=== PATIENT | female | born 1940 | race Caucasian/White ===

== ENCOUNTER → 2018-09-02 | Outpatient (CLI) | payer MEDICARE ==
--- NOTE | 2018-09-02 15:57 | CT ---
EXAMINATION TYPE: CT iac wo con DATE OF EXAM: 09/02/2018 COMPARISON: None HISTORY: 78-year-old female left asymmetric, mixed hearing loss and dizziness CT DLP: 106 mGycm Automated exposure control for dose reduction was used. TECHNIQUE: Contiguous high-resolution axial scanning of the temporal bones performed without IV cont rast. Coronal reformatted images obtained. FINDINGS: There is no abnormality of visualized intracranial structures by thin section noncontrast technique. There are foci of ossification along the bilateral external auditory canal with some asymmetric soft tissue thickening on the left causing mild canal narrowing. Middle ear cavities are well pneumatized. Right mastoid air cells are pneumatized. Minimal scattered fluid within the left mastoid air cells. No erosive change of the fine osseous septa. There is no abnormality of middle ear ossicles. The round and oval windows are normal. There is no abnormality of bony labyrinths. No dehiscence of the superior semicircular canals. The vestibular aqueduct are well visualized. The facial nerve canal is normal bilaterally. The internal auditory canal and meati are symmetrical bilaterally. There is no evidence of fractures. Trace mucosal thickening ethmoid air cells. Rightward nasal septal deviation. Reformatted images confirm above findings. IMPRESSION: 1. Foci of ossification along the bilateral external auditory canals can be seen in the setting of re current otitis externa. Clinically correlate. There is some asymmetric soft tissue thickening causing mild narrowing of the left external auditory canal probably on a chronic postinflammatory basis. 2. Mild scattered fluid within the left mastoid air cells. Correlate for any mastoid pain to exclude mastoiditis.
== END | disposition home or self-care (01) ==
LOC: RADCTMAIN 14:20
PROVIDERS: ATTEND Otolaryngology
DX: H60.92 Unspecified otitis externa, left ear (principal); H93.92 Unspecified disorder of left ear
CPT/HCPCS: 70480

== ENCOUNTER → 2019-07-30 | Outpatient (CLI) | payer MEDICARE, OTHER | END | disposition home or self-care (01) | LOC: LABWHC1 11:27 | PROVIDERS: ATTEND Family Medicine | DX: R50.9 Fever, unspecified (principal) ==

== ENCOUNTER → 2019-12-10 | Outpatient (CLI) | payer MEDICARE, OTHER ==
--- NOTE | 2019-12-11 12:40 | MM ---
Reason for exam: screening (asymptomatic). Last mammogram was performed 1 year and 1 month ago. History: Patient is postmenopausal. Family history of breast cancer in sister at age 66. Benign excisional biopsy. Physical Findings: A clinical breast exam by your physician is recommended on an annual basis and results should be correlated with mammographic findings. MG 3D Screening Mammo W/Cad Bilateral CC and MLO view(s) were taken. Prior study comparison: November 21, 2018, mammogram, performed at [place]. November 14, 2018, mammogram, performed at [place]. November 12, 2017, mammogram, performed at [place]. The breast tissue is heterogeneously dense. This may lower the sensitivity of mammography. No significant changes when compared with prior studies. ASSESSMENT: Benign, BI-RAD 2 RECOMMENDATION: Routine screening mammogram of both breasts in 1 year.
== END | disposition home or self-care (01) ==
LOC: RADMAMWWP 08:28
PROVIDERS: ATTEND Family Medicine
DX: Z12.31 Encounter for screening mammogram for malignant neoplasm of breast (principal)
CPT/HCPCS: 77063; 77067

== ENCOUNTER → 2021-07-29 | Outpatient (CLI) | payer MEDICARE, OTHER ==
--- NOTE | 2021-07-29 15:02 | CT ---
EXAMINATION TYPE: CT brain wo con CT DLP: 1201 mGycm, Automated exposure control for dose reduction was used. DATE OF EXAM: 07/29/2021 2:41 PM COMPARISON: Internal auditory canal 09/02/2018 CLINICAL INDICATION:Female, 81 years old with history of R41.3 Amnesia, c/o memory loss TECHNIQUE: Brain: Multiple axial CT images of the brain were obtained without IV contrast. FINDINGS: Brain: Extra-axial spaces: No abnormal extra-axial fluid collections. Ventricular system: Within normal limits Cerebral parenchyma: No acute intraparenchymal hemorrhage or mass effect. The bruner-white junction is well differentiated. Cerebellum: Unremarkable. Mass effect: No evidence of midline shift. Intracranial vasculature: Atherosclerotic calcifications of the intracranial vessels. Soft tissues: Normal. Calvarium/osseous structures: No depressed skull fracture. Paranasal sinuses and mastoid air cells: Mild scattered paranasal sinus disease. Visualized orbits: Bilateral aphakia IMPRESSION: No acute intracranial process.
--- NOTE | 2021-07-29 15:21 | US ---
EXAMINATION TYPE: US carotid duplex BILAT DATE OF EXAM: 07/29/2021 COMPARISON: NONE CLINICAL HISTORY: R41.3 AMNESIA. Pt states memory loss EXAM MEASUREMENTS: RIGHT: Peak Systolic Velocity (PSV) cm/sec ----- Right CCA: 51.4 ----- Right ICA: 87.9 ----- Right ECA: 94.1 ICA/CCA ratio: 1.7 RIGHT: End Diastole cm/sec ----- Right CCA: 14.2 ----- Right ICA: 33.4 ----- Right ECA: 17.8 LEFT: Peak Systolic Velocity (PSV) cm/sec ----- Left CCA: 62.0 ----- Left ICA: 89.4 ----- Left ECA: 79.1 ICA/CCA ratio: 1.4 LEFT: End Diastole cm/sec ----- Left CCA: 17.4 ----- Left ICA: 29.3 ----- Left ECA: 14.4 VERTEBRALS (direction of flow): Right Vertebral: Antegrade Left Vertebral: Antegrade Rhythm: Normal A scale, color Doppler, spectral Doppler imaging performed the carotid arteries. Waveform analysis do es not show significant stenosis of the proximal internal carotid arteries. No significant stenosis s een IMPRESSION: No hemodynamic significant stenosis of the proximal internal carotid arteries by Doppler criteria, an indirect measurement of carotid stenosis Criteria for Assigning % of Stenosis / Diameter reduction (Estimation based on the indirect measurements of the internal carotid artery velocities (ICA PSV). 1. Normal (no stenosis)=ICA PSV < 125 cm/s: ratio < 2.0: ICA EDV<40 cm/s. 2. Less than 50% stenosis=ICA PSV < 125 cm/s: ratio < 2.0: ICA EDV<40 cm/s. 3. 50 to 69% stenosis=ICA PSV of 125 to 230 cm/s: ration 2.0 ? 4.0: ICA EDV 40-100 cm/s. 4. Greater than 70% stenosis to near occlusion= ICA PSV > 230 cm/s: ratio > 4.0: ICA EDV > 100 cm/s. 5. Near occlusion= ICA PSV velocities may be low or undetectable: variable ratio and ICA EDV. 6. Total occlusion=unable to detect flow.
--- NOTE | 2021-08-01 14:24 | MM ---
Reason for Exam: Screening (asymptomatic). Last mammogram was performed 1 year(s) and 7 month(s) ago. Patient History: Menarche at age 17. First Full-Term at age 22. Hysterectomy at age 52. Postmenopausal. , Benign Excisional Biopsy. Sister had breast cancer, age 66. Risk Values: Nano 5 year model risk: 3.5%. NCI Lifetime model risk: 5.8%. Prior Study Comparison: 11/14/2018 Screening Mammogram, [place]. 11/21/2018 Screening Mammogram, [place]. 12/10/2019 Bilateral Screening Mammogram, [facility]. Tissue Density: The breast tissue is heterogeneously dense. This may lower the sensitivity of mammography. Findings: Analyzed By CAD. Benign bilateral vascular calcifications. Microclip right breast from prior biopsy. No significant change from prior exams. Overall Assessment: Benign, BI-RAD 2 Management: Screening Mammogram of both breasts in 1 year. 1. Patient should continue monthly self breast exams. 2. A clinical breast exam by your physician is recommended on an annual basis. 3. This exam should not preclude additional follow-up of suspicious palpable abnormalities. Electronically signed and approved by: aJnie Lopez M.D. Radiologist
== END | disposition home or self-care (01) ==
LOC: RADCTMAIN 14:01
PROVIDERS: ATTEND Family Medicine
DX: Z12.31 Encounter for screening mammogram for malignant neoplasm of breast (principal); R41.3 Other amnesia
CPT/HCPCS: 70450; 77063; 77067; 93880

== ENCOUNTER → 2022-09-29 | Outpatient (CLI) | payer MEDICARE, OTHER ==
--- NOTE | 2022-09-30 17:54 | CA ---
Transthoracic Echo Report Name: Catrachita Dimas Age: 82 Gender: F : 1940 Exam Date: 09/29/2022 11:38 Exam Location: [facility] Ht (in): 63 Wt (lb): 110 Ordering Physician: Rosales Boothe DO Attending/Referring Phys: Senior Instructional Designer Faby Escoto [facility] Procedure CPT: Indications: R00.2 palpitations Cardiac Hx: Technical Quality: Fair Contrast 1: Total Dose (mL): Contrast 2: Total Dose (mL): MEASUREMENTS (Male / Female) Normal Values 2D ECHO LV Diastolic Diameter PLAX 4.0 cm 4.2 - 5.9 / 3.9 - 5.3 cm LV Systolic Diameter PLAX 2.9 cm IVS Diastolic Thickness 1.2 cm 0.6 - 1.0 / 0.6 - 0.9 cm LVPW Diastolic Thickness 1.1 cm 0.6 - 1.0 / 0.6 - 0.9 cm LV Relative Wall Thickness 0.6 LVOT Diameter 2.0 cm Ascending Aorta Diameter 3.4 cm M-MODE Aortic Root Diameter MM 2.5 cm LA Systolic Diameter MM 4.2 cm LA Ao Ratio MM 1.7 AV Cusp Separation MM 1.6 cm DOPPLER AV Peak Velocity 98.6 cm/s AV Peak Gradient 3.9 mmHg AV Mean Velocity 73.4 cm/s AV Mean Gradient 2.4 mmHg AV Velocity Time Integral 22.4 cm AI Peak Velocity 383.8 cm/s AI Peak Gradient 58.9 mmHg AI Pressure Half Time 837.6 ms LVOT Peak Velocity 79.9 cm/s LVOT Peak Gradient 2.6 mmHg LVOT Velocity Time Integral 17.6 cm LVOT Stroke Volume 56.3 cm??? LVOT Stroke Volume Index 37.5 ml/m??? LVOT Cardiac Index 2993.3 cm???/min???m??? AV Area Cont Eq vti 2.5 cm??? AV Area Cont Eq pk 2.6 cm??? Mitral E Point Velocity 50.8 cm/s Mitral A Point Velocity 51.9 cm/s Mitral E to A Ratio 1.0 MV Deceleration Time 163.0 ms LV E' Lateral Velocity 5.9 cm/s Mitral E to LV E' Lateral Ratio 8.6 LV E' Septal Velocity 6.0 cm/s Mitral E to LV E' Septal Ratio 8.5 TR Peak Velocity 278.0 cm/s TR Peak Gradient 30.9 mmHg Right Atrial Pressure 3.0 mmHg Pulmonary Artery Systolic Pressu 33.9 mmHg Right Ventricular Systolic Press 35.9 mmHg FINDINGS Left Ventricle Mildly increased septal wall thickness. Mildly increased posterior wall thickness. Left ventricular cavity size normal. Normal left ventricular systolic function with no obvious regional wall motion abnormalities. Left ventricular ejection fraction is estimated at 55-60%. Right Ventricle Mildly increased RV size. Normal RV function Right Atrium Severe right atrial dilatation. Left Atrium Severe left atrial dilatation. Mitral Valve Mitral valve thickened. Mild thickening/calcification of the posterior mitral valve leaflet. Moderate mitral regurgitation. Aortic Valve Trileaflet aortic valve. Moderate aortic regurgitation. Tricuspid Valve Structurally normal tricuspid valve. Moderate tricuspid regurgitation. Pulmonic Valve Structurally normal pulmonic valve. Trace to mild pulmonic regurgitation. Pericardium No pericardial effusion. Aorta Normal size aortic root and proximal ascending aorta. CONCLUSIONS Normal LV size and systolic function. LVEF 55-60% No obvious regional wall motion abnormality abnormality Moderate mitral regurgitation next and moderate aortic regurgitation Severe biatrial dilatation, mildly dilated RV. RVSP estimated at 35 mmHg No prior echo to compare Previewed by: Dr Kayode Bill (Electronically Signed) Final Date: 30 September 2022 17:53
== END | disposition home or self-care (01) ==
LOC: RADECHMAIN 11:22
PROVIDERS: ATTEND Family Medicine
DX: I08.3 Combined rheumatic disorders of mitral, aortic and tricuspid valves (principal); R00.2 Palpitations
CPT/HCPCS: 93306

== ENCOUNTER → 2022-10-05 | Outpatient (CLI) | payer MEDICARE, OTHER ==
--- NOTE | 2022-10-16 23:54 | EM ---
EVENT MONITOR The patient was monitored between October 05 and October 11, 2022. The rhythm strip revealed sinus mechanism. Single PACs were noted. No atrial fibrillation was noted. No pauses were noted. OPAL / LEN: [id number] /
== END | disposition home or self-care (01) ==
LOC: RADECHMAIN 12:22
PROVIDERS: ATTEND Family Medicine
DX: R00.2 Palpitations (principal)
CPT/HCPCS: 93270

== ENCOUNTER → 2022-11-29 | Outpatient (CLI) | payer MEDICARE, OTHER ==
--- NOTE | 2022-11-29 12:12 | MR ---
EXAMINATION TYPE: MR brain wo con DATE OF EXAM: 11/29/2022 8:45 AM CLINICAL INDICATION:Female, 82 years old with history of R413 OTHER AMNESIA; PHH, Memory loss. COMPARISON: None. TECHNIQUE: Multi planar, multi sequence imaging was performed through the brain including: T1, T2, In version recovery, Diffusion weighted imaging, and gradient echo imaging. No gadolinium was given. FINDINGS: Cerebral atrophy with proportional dilation to the ventricular system. Mesial temporal lobes are symm etric without significant atrophy. Scattered foci of high T2 signal intensity are seen within the per iventricular white matter. Midline structures show no abnormality. Diffusion-weighted imaging shows n o evidence of restricted diffusion. The susceptibility weighted images do not reveal any evidence for micro-hemorrhage. Susceptibility blooming artifact compatible with developmental venous anomaly in t he right parietal region. The bone marrow signal is within normal limits. Paranasal sinuses and mastoid air cells: Trace left mastoid air cell high T2 signal. Visualized orbit s: Orbital contents are intact. IMPRESSION: 1. No evidence of intracranial mass or acute/subacute infarct. 2. Nonspecific white matter changes, likely secondary to small vessel ischemic disease. 3. Trace left mastoid air cell effusion.
== END | disposition home or self-care (01) ==
LOC: RADMRIMAIN 08:05
PROVIDERS: ATTEND Psychiatry & Neurology Neurology
DX: R41.3 Other amnesia (principal); R90.82 White matter disease, unspecified
CPT/HCPCS: 70551

== ENCOUNTER 2022-12-31 02:14 | Emergency (ER) | payer MEDICARE, OTHER ==
[2022-12-31] MEDS ORDERED: SODIUM CHLORIDE 0.9% 1,000 ML IV STA (02:45)
[2022-12-31] MEDS ORDERED: PANTOPRAZOLE 40 MG/10 ML VIAL IVP STA (02:45)
[2022-12-31] MEDS ORDERED: ONDANSETRON 4 MG/2 ML VIAL IVP STA (02:45)
[2022-12-31] MEDS ORDERED: ACETAMINOPHEN TAB 500 MG TAB PO STA (02:46)
[2022-12-31 02:50] VITALS: RESP 18; TEMP 98.2
--- NOTE | 2022-12-31 02:50 | ED ---
Abdominal Pain HPI - General Chief Complaint: Abdominal Pain Stated Complaint: Abdominal Pain Time Seen by Provider: 12/31/22 02:22 Source: patient Mode of arrival: ambulatory Limitations: no limitations - History of Present Illness Initial Comments: 82-year-old female presenting to the ED with a chief complaint of abdominal pain. Patient states the day after Thanksgiving started to experience diarrhea. States that this persisted throughout the entire day and at this point has now resolved and is having normal bowel movements last bowel movement was yesterday however patient notes that she is having ongoing abdominal pain affecting the middle of her abdomen and nausea, no vomiting. Reports that secondary to nausea has had decreased oral intake because she is afraid of vomiting. Since resolution of diarrhea otherwise notes no changes in bowel or bladder habits. No blood in the stool. Denies fever. No other complaints. - Related Data Home Medications Medication Instructions Recorded Confirmed Acetaminophen Tab [Tylenol] 325 - 650 mg PO DIRECTED PRN 12/09/14 12/11/14 Cholecalciferol [Vitamin D3] 2,000 unit PO DAILY 12/09/14 12/11/14 Cyanocobalamin [Vitamin B-12] 500 mcg PO DAILY 12/09/14 12/11/14 Previous Rx's Medication Instructions Recorded HYDROcodone/APAP 7.5-325MG [[place] 1 each PO Q6HR PRN #60 tab 12/11/14 7.5] Ondansetron Odt [Zofran Odt] 4 mg PO Q8HR PRN #10 tab 12/31/22 Allergies Allergy/AdvReac Type Severity Reaction Status Date / Time diclofenac sodium Allergy Rash/Hives Verified 12/31/22 02:23 [From Voltaren] Penicillins Allergy Rash/Hives Verified 12/31/22 02:23 Review of Systems ROS Statement: Those systems with pertinent positive or pertinent negative responses have been documented in the HPI. ROS Other: All systems not noted in ROS Statement are negative. 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 History of Any Multi-Drug Resistant Organisms: None Reported Past Surgical History: Hysterectomy, Tonsillectomy Past Psychological History: No Psychological Hx Reported Smoking Status: Former smoker Past Alcohol Use History: None Reported Past Drug Use History: None Reported General Exam Limitations: no limitations General appearance: alert, in no apparent distress Neck exam: Present: normal inspection Respiratory exam: Present: normal lung sounds bilaterally Cardiovascular Exam: Present: regular rate, normal rhythm GI/Abdominal exam: Present: soft (Diffuse abdominal tenderness to palpation. No rebound guarding or rigidity.), normal bowel sounds, other (No CVA tenderness to percussion bilaterally) Neurological exam: Present: alert, oriented X3 Skin exam: Present: warm, dry Course Vital Signs 12/31/22 02:23 Temperature 98.2 F Pulse Rate 102 H Respiratory 18 Rate Blood Pressure 142/86 O2 Sat by Pulse 96 Oximetry Medical Decision Making - Medical Decision Making Was pt. sent in by a medical professional or institution (, PA, PRODUCT INFO SPECIALIST, urgent care, hospital, or alf...) When possible be specific @ -No Did you speak to anyone other than the patient for history (EMS, parent, family, police, friend...)? What history was obtained from this source @ -No Did you review nursing and triage notes (agree or disagree)? Why? @ -I reviewed and agree with nursing and triage notes Were old charts reviewed (outside hosp., previous admission, EMS record, old EKG, old radiological studies, urgent care reports/EKG's, alf records)? Report findings @ -No old charts were reviewed Differential Diagnosis (chest pain, altered mental status, abdominal pain women, abdominal pain men, vaginal bleeding, weakness, fever, dyspnea, syncope, headache, dizziness, GI bleed, back pain, seizure, CVA, palpatations, mental health, musculoskeletal)? @ -Differential Abdominal Pain Women: Appendicitis, Cholecystitis, diverticulosis, ischemic bowel, pancreatitis, hepatitis, UTI, gastroenteritis, AAA, incarcerated hernia, bowel obstruction, constipation, inflammatory bowel, hepatitis, peptic ulcer disease, splenic infarction, perforated viscus, vulvitis, ovarian torsion, PID, kidney stone, placenta abruption, this is not meant to be an all-inclusive list EKG interpreted by me (3pts min.). @ -EKG interpreted by me showing a normal sinus rhythm at [address] or T-wave changes. VA 148, QRS 79, QT/QTc 334/387. X-rays interpreted by me (1pt min.). @ -None done CT interpreted by me (1pt min.). @ -None done U/S interpreted by me (1pt. min.). @ -None done What testing was considered but not performed or refused? (CT, X-rays, U/S, labs)? Why? @ -None What meds were considered but not given or refused? Why? @ -None Did you discuss the management of the patient with other professionals (professionals i.e. , PA, PRODUCT INFO SPECIALIST, lab, RT, psych nurse, social worker clinical, civil geotechnical engineer, teacher, ecological technical officer, clinical case manager)? Give summary @ -No Was smoking cessation discussed for >3mins.? @ -No Was critical care preformed (if so, how long)? @ -No Were there social determinants of health that impacted care today? How? (Homelessness, low income, unemployed, alcoholism, drug addiction, transportation, low edu. Level, literacy, decrease access to med. care, alf, rehab)? @ -No Was there de-escalation of care discussed even if they declined (Discuss DNR or withdrawal of care, Hospice)? DNR status @ -No What co-morbidities impacted this encounter? (DM, HTN, Smoking, COPD, CAD, Cancer, CVA, ARF, Chemo, Hep., AIDS, mental health diagnosis, sleep apnea, morbid obesity)? @ -None Was patient admitted / discharged? Hospital course, mention meds given and route, prescriptions, significant lab abnormalities, going to OR and other pertinent info. @ -Discharge 82-year-old female presenting to the ED with diarrhea which is now resolved however still ongoing abdominal pain with nausea. Patient reports vomiting resolved yesterday however still nauseous and has been afraid to eat due to this. Laboratory studies reviewed showing an elevated white blood cell count 11.3, elevated neutrophils at 9.5. Chemistry panel significant for elevated liver enzymes with AST 110, ALT 83, alk phos 229. Patient provided a GI cocktail here in the ED with improvement of symptoms. Patient by mouth challenged without difficulty. Symptoms likely viral in nature. Provided. Prescription for Zofran. Discharged home in stable condition. Discussed return precautions with patient and family who verbalizes agreement. Undiagnosed new problem with uncertain prognosis? @ -No Drug Therapy requiring intensive monitoring for toxicity (Heparin, Nitro, Insulin, Cardizem)? @ -No Were any procedures done? @ -No Diagnosis/symptom? @ -Gastroenteritis Acute, or Chronic, or Acute on Chronic? @ -Acute Uncomplicated (without systemic symptoms) or Complicated (systemic symptoms)? @ -Uncomplicated Side effects of treatment? @ -No Exacerbation, Progression, or Severe Exacerbation? @ -No Poses a threat to life or bodily function? How? (Chest pain, USA, MT, pneumonia, PE, COPD, DKA, ARF, appy, cholecystitis, CVA, Diverticulitis, Homicidal, Suicidal, threat to staff... and all critical care pts) @ -No - Lab Data Result diagrams: 12/31/22 02:49 12/31/22 02:49 Lab Results 12/31/22 12/31/22 12/31/22 Range/Units 02:49 02:49 02:49 WBC 11.3 H (3.8-10.6) k/uL RBC 3.98 (3.80-5.40) m/uL Hgb 12.8 (11.4-16.0) gm/dL Hct 38.7 (34.0-46.0) % MCV 97.4 (80.0-100.0) fL MCH 32.2 (25.0-35.0) pg MCHC 33.1 (31.0-37.0) g/dL RDW 12.7 (11.5-15.5) % Plt Count 190 (150-450) k/uL MPV 8.9 Neutrophils % 84 % Lymphocytes % 6 % Monocytes % 7 % Eosinophils % 0 % Basophils % 1 % Neutrophils # 9.5 H (1.3-7.7) k/uL Lymphocytes # 0.6 L (1.0-4.8) k/uL Monocytes # 0.8 (0-1.0) k/uL Eosinophils # 0.0 (0-0.7) k/uL Basophils # 0.1 (0-0.2) k/uL PT 12.0 (10.0-12.5) sec INR 1.1 (<1.2) APTT 22.7 (22.0-30.0) sec Sodium 137 (137-145) mmol/L Potassium 4.5 (3.5-5.1) mmol/L Chloride 104 (98-107) mmol/L Carbon Dioxide 20 L (22-30) mmol/L Anion Gap 13 mmol/L BUN 15 (7-17) mg/dL Creatinine 0.85 (0.52-1.04) mg/dL Est GFR (CKD-EPI)AfAm 75 (>60 ml/min/1.73 sqM) Est GFR (CKD-EPI)NonAf 65 (>60 ml/min/1.73 sqM) Glucose 89 (74-99) mg/dL Calcium 9.8 (8.4-10.2) mg/dL Total Bilirubin 1.1 (0.2-1.3) mg/dL AST 110 H (14-36) U/L ALT 83 H (4-34) U/L Alkaline Phosphatase 229 H (38-126) U/L Troponin I (0.000-0.034) ng/mL Total Protein 6.9 (6.3-8.2) g/dL Albumin 4.2 (3.5-5.0) g/dL Influenza Type A (PCR) (Not Detectd) Influenza Type B (PCR) (Not Detectd) RSV (PCR) (Not Detectd) SARS-CoV-2 (PCR) (Not Detectd) 12/31/22 12/31/22 Range/Units 02:56 03:41 WBC (3.8-10.6) k/uL RBC (3.80-5.40) m/uL Hgb (11.4-16.0) gm/dL Hct (34.0-46.0) % MCV (80.0-100.0) fL MCH (25.0-35.0) pg MCHC (31.0-37.0) g/dL RDW (11.5-15.5) % Plt Count (150-450) k/uL MPV Neutrophils % % Lymphocytes % % Monocytes % % Eosinophils % % Basophils % % Neutrophils # (1.3-7.7) k/uL Lymphocytes # (1.0-4.8) k/uL Monocytes # (0-1.0) k/uL Eosinophils # (0-0.7) k/uL Basophils # (0-0.2) k/uL PT (10.0-12.5) sec INR (<1.2) APTT (22.0-30.0) sec Sodium (137-145) mmol/L Potassium (3.5-5.1) mmol/L Chloride (98-107) mmol/L Carbon Dioxide (22-30) mmol/L Anion Gap mmol/L BUN (7-17) mg/dL Creatinine (0.52-1.04) mg/dL Est GFR (CKD-EPI)AfAm (>60 ml/min/1.73 sqM) Est GFR (CKD-EPI)NonAf (>60 ml/min/1.73 sqM) Glucose (74-99) mg/dL Calcium (8.4-10.2) mg/dL Total Bilirubin (0.2-1.3) mg/dL AST (14-36) U/L ALT (4-34) U/L Alkaline Phosphatase (38-126) U/L Troponin I 0.031 (0.000-0.034) ng/mL Total Protein (6.3-8.2) g/dL Albumin (3.5-5.0) g/dL Influenza Type A (PCR) Not Detected (Not Detectd) Influenza Type B (PCR) Not Detected (Not Detectd) RSV (PCR) Not Detected (Not Detectd) SARS-CoV-2 (PCR) Not Detected (Not Detectd) Disposition Clinical Impression: Gastroenteritis Disposition: HOME SELF-CARE Condition: Good Instructions (If sedation given, give patient instructions): Gastroenteritis (DC) Additional Instructions: Please return to the Emergency Department if symptoms worsen or any other concerns. Prescriptions: Ondansetron Odt [Zofran Odt] 4 mg PO Q8HR PRN #10 tab PRN Reason: Nausea Is patient prescribed a controlled substance at d/c from ED?: No Referrals: Rosales Boothe DO [Primary Care Provider] - 1-2 days Time of Disposition: 04:55
[2022-12-31 03:27] LABS: Basophils # (A) 0.1 k/uL (0-0.2); Basophils % (A) 1 %; Eosinophils % (A) 0 %; HCT 38.7 % (34.0-46.0); HGB 12.8 gm/dL (11.4-16.0); Lymphocytes # (A) 0.6 k/uL (1.0-4.8); Lymphocytes % (A) 6 %; MCH 32.2 pg (25.0-35.0); MCHC 33.1 g/dL (31.0-37.0); MCV 97.4 fL (80.0-100.0); Mean Platelet Volume 8.9; Monocytes # (A) 0.8 k/uL (0-1.0); Monocytes % (A) 7 %; Neutrophils # (A) 9.5 k/uL (1.3-7.7); Neutrophils % (A) 84 %; Platelet Count 190 k/uL (150-450); RBC 3.98 m/uL (3.80-5.40); RDW 12.7 % (11.5-15.5); WBC 11.3 k/uL (3.8-10.6)
[2022-12-31 03:40] LABS: ALT 83 U/L (4-34); AST 110 U/L (14-36); African American GFR (CKD) 75 (>60 ml/min/1.73 sqM); Albumin 4.2 g/dL (3.5-5.0); Alkaline Phosphatase 229 U/L (38-126); Anion Gap 13 mmol/L; Blood Urea Nitrogen 15 mg/dL (7-17); Calcium 9.8 mg/dL (8.4-10.2); Carbon Dioxide 20 mmol/L (22-30); Chloride 104 mmol/L (98-107); Glucose 89 mg/dL (74-99); Non-African American GFR(CKD) 65 (>60 ml/min/1.73 sqM); Potassium 4.5 mmol/L (3.5-5.1); Sodium 137 mmol/L (137-145); Total Bilirubin 1.1 mg/dL (0.2-1.3); Total Protein 6.9 g/dL (6.3-8.2)
[2022-12-31 03:46] LABS: INR 1.1 (<1.2); Partial Thromboplastin Time 22.7 sec (22.0-30.0)
[2022-12-31 05:42] VITALS: BP 131/76; PULSE 98
[2022-12-31 06:07] LABS: Appearance,Urine Clear (Clear); Bacteria,Urine Rare /hpf; Bilirubin,Urine Negative (Negative); Blood,Urine Moderate (Negative); Color,Urine Light Yellow; Glucose,Urine (UA) Negative (Negative); Hyaline Casts,Urine 4 /lpf (0-2); Ketones,Urine 3+ (Negative); Leukocyte Esterase,Urine Moderate (Negative); Mucus,Urine Occasional /hpf; Nitrite,Urine Negative (Negative); PH, Urine 5.5 (5.0-8.0); Protein,Urine Negative (Negative); RBC,Urine 7 /hpf (0-5); Specific Gravity,Urine 1.017 (1.001-1.035); Squamous Epithelial Cell,Urine 2 /hpf (0-4); Urobilinogen,Urine <2.0 mg/dL (<2.0); WBC,Urine 7 /hpf (0-5)
== END 2022-12-31 05:32 | disposition home or self-care (01) ==
LOC: EC 02:14
DX: K52.9 Noninfective gastroenteritis and colitis, unspecified (principal); Z87.891 Personal history of nicotine dependence; Z88.0 Allergy status to penicillin; Z88.8 Allergy status to other drugs, medicaments and biological substances; Z20.822 Contact with and (suspected) exposure to COVID-19
CPT/HCPCS: 36415; 80053; 84484; 85025; 85610; 85730; 81001; 87636; 99284; 96374; 96375; 96361; J2405; C9113

== ENCOUNTER 2023-01-01 20:27 | Inpatient (IN) | payer MEDICARE, OTHER ==
--- NOTE | 2023-01-01 20:44 | ED ---
General Adult HPI - General Source: patient Mode of arrival: ambulatory Limitations: no limitations <Ruthy Hill - Last Filed: 01/01/23 20:46> <Phuong Hammond - Last Filed: 01/02/23 05:11> - General Chief complaint: Arrhythmia/Palpitations Stated complaint: Recheck - AFib, Dehydration - History of Present Illness Initial comments: 82-year-old female presents to the emergency department for chief complaint of "my heath said I was in A. fib." She states that this happened just today. She denies history of afib. She admits to some palpitations. Denies lightheadedness, shortness of breath. She is not on blood thinners currently. (Ruthy Hill) Patient came to the ER today reporting she had some irregular heartbeat but more concerning that she had some decreased appetite and some nausea. She hadn't had any desire to eat or drink anything she is concerned that she is getting dehydrated. She denies any significant abdominal pain. She's had no recent illness no fevers chills no vomiting. No diarrhea or constipation. (Phuong Hammond) - Related Data Home Medications Medication Instructions Recorded Confirmed Acetaminophen Tab [Tylenol] 325 - 650 mg PO DIRECTED PRN 12/09/14 12/11/14 Cholecalciferol [Vitamin D3] 2,000 unit PO DAILY 12/09/14 12/11/14 Cyanocobalamin [Vitamin B-12] 500 mcg PO DAILY 12/09/14 12/11/14 Previous Rx's Medication Instructions Recorded HYDROcodone/APAP 7.5-325MG [[place] 1 each PO Q6HR PRN #60 tab 12/11/14 7.5] Ondansetron Odt [Zofran Odt] 4 mg PO Q8HR PRN #10 tab 12/31/22 Allergies Allergy/AdvReac Type Severity Reaction Status Date / Time diclofenac sodium Allergy Rash/Hives Verified 01/01/23 20:31 [From Voltaren] Penicillins Allergy Rash/Hives Verified 01/01/23 20:31 Review of Systems ROS Other: All systems not noted in ROS Statement are negative. <Ruthy Hill - Last Filed: 01/01/23 20:46> ROS Other: All systems not noted in ROS Statement are negative. <Phuong Hammond - Last Filed: 01/02/23 05:11> ROS Statement: Those systems with pertinent positive or pertinent negative responses have been documented in the HPI. Past Medical History Past Medical History: Atrial Fibrillation Additional Past Medical History / Comment(s): PVC. History of Any Multi-Drug Resistant Organisms: None Reported Past Surgical History: Hysterectomy, Tonsillectomy Past Psychological History: No Psychological Hx Reported Smoking Status: Former smoker Past Alcohol Use History: None Reported Past Drug Use History: None Reported <Ruthy Hill - Last Filed: 01/01/23 20:46> General Exam Limitations: no limitations <Ruthy Hill - Last Filed: 01/01/23 20:46> Limitations: no limitations General appearance: alert, in no apparent distress Head exam: Present: atraumatic, normocephalic Eye exam: Present: normal appearance ENT exam: Present: mucous membranes dry Respiratory exam: Present: normal lung sounds bilaterally. Absent: respiratory distress Cardiovascular Exam: Present: regular rate, normal rhythm GI/Abdominal exam: Present: soft. Absent: distended, guarding, rebound, rigid Rectal exam: Present: deferred Extremities exam: Present: normal inspection, full ROM Back exam: Present: normal inspection Neurological exam: Present: alert, oriented X3 Psychiatric exam: Present: normal affect, normal mood Skin exam: Present: warm, dry, intact <Phuong Hammond - Last Filed: 01/02/23 05:11> - General Exam Comments Initial Comments: Visual Physical Exam Vital signs reviewed General: Well-appearing, nontoxic, no acute distress. Head: Normocephalic, atraumatic Eyes: PERRLA, EOMI ENT: Airway patent Chest: Nonlabored breathing Skin: No visual rash, normal skin tone Neuro: Alert and oriented 3 Musculoskeletal: No gross abnormalities (Ruthy Hill) Patient was evaluated a recliner in the conference room as there were no emergency department rooms available (Phuong Hammond) Course Vital Signs 01/01/23 01/01/23 20:29 23:35 Temperature 98.4 F Pulse Rate 95 91 Respiratory 18 16 Rate Blood Pressure 109/72 119/75 O2 Sat by Pulse 96 Oximetry EKG Findings - EKG Comments: EKG Findings:: EKG interpreted by me EKG obtained due to complaint of palpitations EKG obtained at 2031, rate is 89 rhythm is sinus with frequent PACs, SD 143 curious anyone QTC 372, there is mild ST depression in V4 no acute ST elevations no evidence of acute ischemia or infarction. <Phuong Hammond P - Last Filed: 01/02/23 05:11> Medical Decision Making <Ruthy Hill - Last Filed: 01/01/23 20:46> - Lab Data Result diagrams: 01/01/23 20:34 01/01/23 20:34 <Phuong Hammond - Last Filed: 01/02/23 05:11> - Medical Decision Making I preformed the quick note portion of this chart. signed by Ruthy Hill PA-C (Ruthy Hill) Was pt. sent in by a medical professional or institution ([facility], [facility], urgent care, hospital, or group home...) When possible be specific @ -[No] Did you speak to anyone other than the patient for history (EMS, parent, family, police, friend...)? What history was obtained from this source @ -[No] Did you review nursing and triage notes (agree or disagree)? Why? @ -[I reviewed and agree with nursing and triage notes] Were old charts reviewed (outside hosp., previous admission, EMS record, old EKG, old radiological studies, urgent care reports/EKG's, group home records)? Report findings @ -[No old charts were reviewed] Differential Diagnosis (chest pain, altered mental status, abdominal pain women, abdominal pain men, vaginal bleeding, weakness, fever, dyspnea, syncope, headache, dizziness, GI bleed, back pain, seizure, CVA, palpatations, mental health)? @ -Palpitations, arrhythmia, electrolyte abnormality EKG interpreted by me (3pts min.). @ -[As above] X-rays interpreted by me (1pt min.). @ -Suggestive of small bowel obstruction CT interpreted by me (1pt min.). @ -no free air, U/S interpreted by me (1pt. min.). @ -[None done] What testing was considered but not performed or refused? (CT, X-rays, U/S, labs)? Why? @ -[None] What meds were considered but not given or refused? Why? @ -[None] Did you discuss the management of the patient with other professionals (professionals i.e. , PA, PUMP TENDER, lab, RT, psych nurse, marriage and family social worker, masseur/masseuse, teacher, space officer, showcase maker)? Give summary @ -[No] Was smoking cessation discussed for >3mins.? @ -[No] Was critical care preformed (if so, how long)? @ -[No] Were there social determinants of health that impacted care today? How? (Homelessness, low income, unemployed, alcoholism, drug addiction, transportation, low edu. Level, literacy, decrease access to med. care, long-term, rehab)? @ -[No] Was there de-escalation of care discussed even if they declined (Discuss DNR or withdrawal of care, Hospice)? DNR status @ -[No] What co-morbidities impacted this encounter? (DM, HTN, Smoking, COPD, CAD, Ca ncer, CVA, ARF, Chemo, Hep., AIDS, mental health diagnosis, sleep apnea, morbid obesity)? @ -[None] Was patient admitted / discharged? Hospital course, mention meds given and route, prescriptions, significant lab abnormalities, going to OR and other pertinent info. @ -Admit Patient was seen and evaluated, history is obtained from patient and son at bedside. Patient with decreased appetite decreased oral intake concern for dehydration and reports that she was in A. fib from her monitor. Patient was not in A. fib on arrival vital signs are stable. Due to lack of beds available in the ER. Labs and x-ray were obtained, x-ray was concerning for ileus versus small bowel obstruction. Patient was placed in a conference rooms that she can sit in a recliner which is much more comfortable for her. She was given IV fluids and computed tomography scan was obtained. Computed tomography scan did have some, bile duct dilation concerning for sludge. Patient was now asymptomatic. Ultrasound will be ordered for morning patient receiving IV fluids repeat labs ordered for morning. Undiagnosed new problem with uncertain prognosis? @ Yes Drug Therapy requiring intensive monitoring for toxicity (Heparin, Nitro, Insulin, Cardizem)? @ -[No] Were any procedures done? @ -[No] Diagnosis/symptom? @ --Ileus, nausea, transaminitis Acute, or Chronic, or Acute on Chronic? @ -Acute Uncomplicated (without systemic symptoms) or Complicated (systemic symptoms)? @ -Complicated Side effects of treatment? @ -[No] Exacerbation, Progression, or Severe Exacerbation? @ -[No] Poses a threat to life or bodily function? How? (Chest pain, [place], [place], pneumonia, PE, COPD, DKA, ARF, appy, cholecystitis, CVA, Diverticulitis, Homicidal, Suicidal, threat to staff... and all critical care pts) @ -EMS, can advance to a sepsis septic shock, extremes of age (Phuong Hammond) - Lab Data Lab Results 01/01/23 01/01/23 01/01/23 Range/Units 20:34 20:34 20:34 WBC 10.6 (3.8-10.6) k/uL RBC 3.63 L (3.80-5.40) m/uL Hgb 11.6 (11.4-16.0) gm/dL Hct 34.8 (34.0-46.0) % MCV 96.0 (80.0-100.0) fL MCH 32.1 (25.0-35.0) pg MCHC 33.4 (31.0-37.0) g/dL RDW 12.5 (11.5-15.5) % Plt Count 191 (150-450) k/uL MPV 8.8 Neutrophils % 81 % Lymphocytes % 7 % Monocytes % 8 % Eosinophils % 0 % Basophils % 0 % Neutrophils # 8.6 H (1.3-7.7) k/uL Lymphocytes # 0.8 L (1.0-4.8) k/uL Monocytes # 0.8 (0-1.0) k/uL Eosinophils # 0.0 (0-0.7) k/uL Basophils # 0.0 (0-0.2) k/uL PT 10.4 (10.0-12.5) sec INR 0.9 (<1.2) APTT 23.1 (22.0-30.0) sec Sodium 133 L (137-145) mmol/L Potassium 4.4 (3.5-5.1) mmol/L Chloride 100 (98-107) mmol/L Carbon Dioxide 24 (22-30) mmol/L Anion Gap 9 mmol/L BUN 19 H (7-17) mg/dL Creatinine 0.91 (0.52-1.04) mg/dL Est GFR (CKD-EPI)AfAm 69 (>60 ml/min/1.73 sqM) Est GFR (CKD-EPI)NonAf 60 (>60 ml/min/1.73 sqM) Glucose 125 H (74-99) mg/dL Calcium 9.9 (8.4-10.2) mg/dL Magnesium 2.0 (1.6-2.3) mg/dL Total Bilirubin 2.8 H (0.2-1.3) mg/dL AST 366 H (14-36) U/L ALT 152 H (4-34) U/L Alkaline Phosphatase 282 H (38-126) U/L Troponin I (0.000-0.034) ng/mL Total Protein 6.4 (6.3-8.2) g/dL Albumin 3.7 (3.5-5.0) g/dL Amylase (30-110) U/L Lipase (23-300) U/L 01/01/23 01/01/23 Range/Units 20:34 20:34 WBC (3.8-10.6) k/uL RBC (3.80-5.40) m/uL Hgb (11.4-16.0) gm/dL Hct (34.0-46.0) % MCV (80.0-100.0) fL MCH (25.0-35.0) pg MCHC (31.0-37.0) g/dL RDW (11.5-15.5) % Plt Count (150-450) k/uL MPV Neutrophils % % Lymphocytes % % Monocytes % % Eosinophils % % Basophils % % Neutrophils # (1.3-7.7) k/uL Lymphocytes # (1.0-4.8) k/uL Monocytes # (0-1.0) k/uL Eosinophils # (0-0.7) k/uL Basophils # (0-0.2) k/uL PT (10.0-12.5) sec INR (<1.2) APTT (22.0-30.0) sec Sodium (137-145) mmol/L Potassium (3.5-5.1) mmol/L Chloride (98-107) mmol/L Carbon Dioxide (22-30) mmol/L Anion Gap mmol/L BUN (7-17) mg/dL Creatinine (0.52-1.04) mg/dL Est GFR (CKD-EPI)AfAm (>60 ml/min/1.73 sqM) Est GFR (CKD-EPI)NonAf (>60 ml/min/1.73 sqM) Glucose (74-99) mg/dL Calcium (8.4-10.2) mg/dL Magnesium (1.6-2.3) mg/dL Total Bilirubin (0.2-1.3) mg/dL AST (14-36) U/L ALT (4-34) U/L Alkaline Phosphatase (38-126) U/L Troponin I 0.033 (0.000-0.034) ng/mL Total Protein (6.3-8.2) g/dL Albumin (3.5-5.0) g/dL Amylase 45 (30-110) U/L Lipase 57 (23-300) U/L Disposition <Ruthy Hill - Last Filed: 01/01/23 20:46> Is patient prescribed a controlled substance at d/c from ED?: No <Phuong Hammond - Last Filed: 01/02/23 05:11> Clinical Impression: Ileus, Nausea, Transaminitis Disposition: ADMITTED IP TO THIS HOSP Condition: Serious
[2023-01-01 20:51] LABS: Basophils % (A) 0 %; Eosinophils % (A) 0 %; HCT 34.8 % (34.0-46.0); HGB 11.6 gm/dL (11.4-16.0); Lymphocytes # (A) 0.8 k/uL (1.0-4.8); Lymphocytes % (A) 7 %; MCH 32.1 pg (25.0-35.0); MCHC 33.4 g/dL (31.0-37.0); Mean Platelet Volume 8.8; Monocytes # (A) 0.8 k/uL (0-1.0); Monocytes % (A) 8 %; Neutrophils # (A) 8.6 k/uL (1.3-7.7); Neutrophils % (A) 81 %; Platelet Count 191 k/uL (150-450); RBC 3.63 m/uL (3.80-5.40); RDW 12.5 % (11.5-15.5); WBC 10.6 k/uL (3.8-10.6)
[2023-01-01 21:04] LABS: ALT 152 U/L (4-34); AST 366 U/L (14-36); African American GFR (CKD) 69 (>60 ml/min/1.73 sqM); Albumin 3.7 g/dL (3.5-5.0); Alkaline Phosphatase 282 U/L (38-126); Anion Gap 9 mmol/L; Blood Urea Nitrogen 19 mg/dL (7-17); Calcium 9.9 mg/dL (8.4-10.2); Carbon Dioxide 24 mmol/L (22-30); Chloride 100 mmol/L (98-107); Glucose 125 mg/dL (74-99); INR 0.9 (<1.2); Non-African American GFR(CKD) 60 (>60 ml/min/1.73 sqM); Partial Thromboplastin Time 23.1 sec (22.0-30.0); Potassium 4.4 mmol/L (3.5-5.1); Prothrombin Time 10.4 sec (10.0-12.5); Sodium 133 mmol/L (137-145); Total Bilirubin 2.8 mg/dL (0.2-1.3); Total Protein 6.4 g/dL (6.3-8.2)
--- NOTE | 2023-01-01 21:14 | XR ---
EXAMINATION TYPE: XR KUB DATE OF EXAM: 01/01/2023 8:57 PM CLINICAL INDICATION:Female, 82 years old with history of abdominal pain; [facility] COMPARISON: None. TECHNIQUE: One radiographic view of the abdomen was obtained. FINDINGS: There are some air-fluid levels scattered throughout the abdomen. Stool seen within the col on. There is no evidence for organomegaly or pneumoperitoneum. The osseous structures are intact. No abnormal calcifications are present. Fecal material and gas are demonstrated throughout the colon and rectum. Degeneration changes of the hips. IMPRESSION: Air-fluid levels scattered throughout the upright abdominal radiograph. Correlate for ileus versus pa rtial bowel obstruction given some stool in the rectum and colon.
--- NOTE | 2023-01-01 21:19 | XR ---
EXAMINATION TYPE: XR chest 2V DATE OF EXAM: 01/01/2023 8:57 PM CLINICAL INDICATION:Female, 82 years old with history of dysrhythmia COMPARISON: none TECHNIQUE: XR chest 2V Frontal and lateral views of the chest. FINDINGS: Lungs/Pleura: There is a nodular-like opacity measuring 19 x 14 mm best appreciated on lateral view. There is flattening of the diaphragm with increased lucency of the lungs. No evidence of pneumothorax , pleural effusion or focal consolidation. Pulmonary vascularity: Unremarkable. Heart/mediastinum: Cardiomediastinal silhouette is unremarkable. Musculoskeletal: No acute osseous pathology. IMPRESSION: 1. No acute cardiopulmonary disease process. 2. Pulmonary nodule aspiration lateral view projecting over the lower lungs are clear which side poss ibly the left. Further evaluation with cross-sectional imaging of the chest should be performed. 3. COPD changes.
[2023-01-01 21:58] LABS: Amylase 45 U/L (30-110); Lipase 57 U/L (23-300)
[2023-01-01] MEDS: SODIUM CHLORIDE 0.9% 1,000 ML IV SCH (23:53)
[2023-01-02] MEDS ORDERED: MORPHINE SULFATE 4 MG/ML SYRINGE IV PRN (01:07)
[2023-01-02] MEDS ORDERED: NALOXONE 0.4 MG/ML 1 ML VIAL IV PRN (01:07)
--- NOTE | 2023-01-02 04:15 | CT ---
EXAM: CT Abdomen and Pelvis With Intravenous Contrast CLINICAL HISTORY: ITS.REASON CT Reason: sbo TECHNIQUE: Axial computed tomography images of the abdomen and pelvis with intravenous contrast. CTDI is 12.2 mGy and DLP is 510.2 mGy-cm. This CT exam was performed using one or more of the following dose reduction techniques: automated exposure control, adjustment of the mA and/or kV according to patient size, and/or use of iterative reconstruction technique. COMPARISON: No relevant prior studies available. FINDINGS: Lung bases: Unremarkable. No mass. No consolidation. Heart: Prominent mitral annular calcification. Mediastinum: 12 mm pulmonary calcification adjacent to the GE junction mediastinum. Small type I hiatal hernia. ABDOMEN: Liver: 40 x 50 x 54 mm cystic lesion arising from the caudate lobe, probably a exophytic hepatic cyst. Scattered hepatic hypodensities, presumably cysts. Mild stranding adjacent to the caudal margin of the liver. Gallbladder and bile ducts: Cholelithiasis without pericholecystic edema. Mild dilation (13 mm) and thickening of the CBD. Intraluminal hyperdensity within the CBD. Pancreas: Mild prominence of the pancreatic duct. No peripancreatic edema. Spleen: Incidental posterior splenic cleft. Adrenals: Mild adrenal thickening. Kidneys and ureters: Unremarkable. No solid mass. No hydronephrosis. Stomach and bowel: Colonic diverticulosis, without acute diverticulitis. No obstruction. PELVIS: Appendix: Appendix not seen. Bladder: Unremarkable. No mass. Reproductive: 45 mm cystic lesion in the posterior left pelvis, possibly ovarian or adnexal. 31 mm cystic lesion in the right lateral pelvis, also possibly ovarian. Prior hysterectomy. ABDOMEN and PELVIS: Intraperitoneal space: Unremarkable. No free air. No significant fluid collection. Bones/joints: No acute fracture. No dislocation. Soft tissues: Unremarkable. Vasculature: Focal dense atherosclerotic calcification at the origin of the renal arteries, indeterminate stenosis. Atherosclerotic calcifications. No abdominal aortic aneurysm. Lymph nodes: Unremarkable. No enlarged lymph nodes. Other findings: Basal scarring. IMPRESSION: 1. Findings suggestive of common bile duct wall thickening with intraluminal debris, question sludge, hemorrhage, or noncalcified calculi. 2. Cholelithiasis, without obvious changes of acute cholecystitis at this time. 3. Large cystic lesion arising from the caudate lobe, associated with adjacent nonspecific mesenteric stranding extending to the caudal margin of the liver, possibly a complicated cyst. Unlikely but conceivably this cyst could represent a choledocho cyst.
[2023-01-02 06:51] LABS: Basophils % (A) 0 %; Eosinophils % (A) 0 %; HCT 32.8 % (34.0-46.0); HGB 10.8 gm/dL (11.4-16.0); Lymphocytes # (A) 0.7 k/uL (1.0-4.8); Lymphocytes % (A) 9 %; MCH 32.4 pg (25.0-35.0); MCV 98.1 fL (80.0-100.0); Mean Platelet Volume 8.6; Monocytes # (A) 0.6 k/uL (0-1.0); Monocytes % (A) 8 %; Neutrophils # (A) 6.6 k/uL (1.3-7.7); Neutrophils % (A) 81 %; Platelet Count 178 k/uL (150-450); RBC 3.34 m/uL (3.80-5.40); RDW 12.3 % (11.5-15.5); WBC 8.2 k/uL (3.8-10.6)
[2023-01-02 07:09] LABS: ALT 194 U/L (4-34); AST 332 U/L (14-36); African American GFR (CKD) 70 (>60 ml/min/1.73 sqM); Albumin/Globulin Ratio 1.2; Alkaline Phosphatase 319 U/L (38-126); Anion Gap 7 mmol/L; Blood Urea Nitrogen 16 mg/dL (7-17); Calcium 9.3 mg/dL (8.4-10.2); Carbon Dioxide 24 mmol/L (22-30); Chloride 103 mmol/L (98-107); Globulin 2.5 g/dL; Glucose 100 mg/dL (74-99); Lipase 63 U/L (23-300); Non-African American GFR(CKD) 61 (>60 ml/min/1.73 sqM); Potassium 4.4 mmol/L (3.5-5.1); Sodium 134 mmol/L (137-145); Total Bilirubin 3.8 mg/dL (0.2-1.3); Total Protein 5.5 g/dL (6.3-8.2)
[2023-01-02] MEDS: SODIUM CHLORIDE 0.9% 1,000 ML IV SCH ×2 (09:19→22:03)
--- NOTE | 2023-01-02 09:41 | US ---
EXAMINATION TYPE: US gallbladder DATE OF EXAM: 01/02/2023 COMPARISON: CT 2022 CLINICAL INDICATION: Female, 82 years old with history of abnormal CT, transaminitis'; TECHNIQUE: Multiple sonographic images of the right upper quadrant are obtained. FINDINGS: EXAM MEASUREMENTS: Liver Length: 15.3 cm Gallbladder Wall: 0.2 cm CBD: 0.4 cm Right Kidney: 9.9 x 4.2 x 4.2 cm Pancreas: visualized portions wnl, limited by overlying midline bowel gas Liver: 2.9 x 2.6 x 2.9cm septated cyst left lobe, 5.6 x 4.3 x 5.8cm complex cystic area caudate lobe Gallbladder: hydropic, cholelithiasis Evidence for sonographic Sage's sign: no CBD: visualized portions wnl, limited by overlying bowel gas Right Kidney: wnl IMPRESSION: 1. Distended gallbladder with cholelithiasis. Correlate for signs and symptoms of acute cholecystiti s. complete evaluation. 2. Cystic lesions within the liver which are slightly complicated.
--- NOTE | 2023-01-02 12:36 | XR ---
EXAMINATION TYPE: XR chest 1V portable DATE OF EXAM: 01/02/2023 COMPARISON: 01/01/2023 HISTORY: Pain TECHNIQUE: Single frontal view of the chest is obtained. FINDINGS: Bilateral lower lobe infiltrate. Underlying COPD. Apical pleural thickening. Heart is mild ly enlarged with no overt failure. Diffuse osteopenia. Degenerative changes of the spine. Hyperdensit y in left upper quadrant may be related to calcification or recent contrast ingestion. IMPRESSION: 1. Bilateral lower lobe infiltrate.
--- NOTE | 2023-01-02 13:25 | HP ---
HISTORY AND PHYSICAL CHIEF COMPLAINT: Abdominal pain, atrial fibrillation. HISTORY OF PRESENT ILLNESS: This is an 82-year-old woman with a past medical history of atrial fibrillation, PVCs, had a second ER visit last night. The patient had abdominal pain, some nausea. The patient also has atrial fibrillation. The patient was noted to have respiratory ileus and further evaluation showed elevated LFTs and also evidence of gallbladder distention, cholelithiasis and possibly choledocholithiasis also. The patient was admitted for evaluation and treatment. There is no history of fever rigors chills. PAST MEDICAL HISTORY: Atrial fibrillation previously, rest of the history and rest of the chart is also reviewed. HOME MEDICATIONS: Reviewed include zinc gluconate, dose and rest of the medications noted. ALLERGIES: Voltaren and penicillin. FAMILY HISTORY: No history of heart disease or strokes. SOCIAL HISTORY: Previous history of smoking. REVIEW OF SYSTEMS: A 14-point review is negative except as mentioned earlier. PHYSICAL EXAMINATION: VITAL SIGNS: Pulse is 60 and irregular, blood pressure 130/75, respirations 18. HEENT: Conjunctivae normal. NECK: No jugular venous distention. CARDIOVASCULAR: S1, S2. ABDOMEN: Soft, mild diffuse discomfort. No guarding, no rigidity. No masses. LEGS: No edema, no swelling. NERVOUS SYSTEM: No focal deficit. SKIN: No ulcer, rash, bleeding. JOINTS: No active deforming arthropathy. LABORATORY DATA: Reviewed. ASSESSMENT AND PLAN: 1. Abdominal pain with possibly cholelithiasis and choledocholithiasis with nausea. 2. Possible partial small bowel obstruction. 3. Atrial fibrillation with fast ventricular rate present on admission. The rate control currently. 4. Hyponatremia. 5. Anemia. 6. PVCs. 7. Multiple complex medical issues. RECOMMENDATIONS: This 82-year-old woman, who presented with multiple complex medical issues. At this time, I recommend to continue current medications, symptomatic treatment will be offered. I would recommend surgical evaluation for possible surgery and gastroenterology evaluation for possible ERCP, cardiology also consulted. 2D echo will be ordered. Overall prognosis extremely guarded because of multiple complex medical issues. See orders for details. Had detailed discussion with family. MMODL / IJN: [id number] /
--- NOTE | 2023-01-02 15:05 | P.GSCN ---
History of Present Illness Consult date: 01/02/23 History of present illness: CHIEF COMPLAINT: Decreased appetite, nausea and irregular heartbeat Reason for consult: Gallstones HISTORY OF PRESENT ILLNESS: This is a 82-year-old female who presented to the ER initially on 12/31/2022 for diarrhea that started after Thanksgiving with nausea. Patient was discharged from the ER but presented back due to her own at showing that she was in atrial fibrillation. Patient continued to have nausea and decreased appetite she's concerned that she was dehydrated. Patient reports that she has been having some abdominal pain after eating for the last 2 days. She initially thought that she may have had a bowel blockage. KUB x-ray had shown ileus versus a partial small bowel obstruction. She had a computed tomography scan of the abdomen and pelvis that showed no evidence of bowel obstruction but did report that findings suggestive of common bile duct wall thickening with intraluminal debris question sludge hemorrhage or noncalcified calculi. Cholelithiasis without obvious changes of acute cholecystitis at this time. Liver enzymes and total bilirubin are elevated. Patient denies being on any blood thinners for her atrial fibrillation. Past abdominal surgical history does include a hysterectomy. She denies any fever chills or sweats. She did have a Bowel movement today. PAST MEDICAL HISTORY: Atrial fibrillation PAST SURGICAL HISTORY: Hysterectomy, tonsillectomy, Appendectomy MEDICATIONS: See below ALLERGIES: See below SOCIAL HISTORY: No illicit drug use. REVIEW OF SYSTEMS: CONSTITUTIONAL: Denies fever or chills. HEENT: Denies blurred vision, vision changes, or eye pain. Denies hemoptysis CARDIOVASCULAR: Denies chest pain or pressure. RESPIRATORY: No shortness of breath. GASTROINTESTINAL: See HPI for pertinent findings HEMATOLOGIC: Denies bleeding disorders. GENITOURINARY: Denies any blood in urine or increased urinary frequency. SKIN: Denies pruitis. Denies rash. PHYSICAL EXAM: VITAL SIGNS: Reviewed GENERAL: Well-developed in no acute distress. HEENT: No sclera icterus. Extraocular movements grossly intact. Moist buccal mucosa. Head is atraumatic, normocephalic. No nasal drainage. ABDOMEN: Soft. Nondistended. Mild Tenderness to palpation to the right upper quadrant NEUROLOGIC: Alert and oriented. Cranial nerves II through XII grossly intact. LABORATORY DATA: WBC 8.2 HGB 10.2 plt 178 Na 134 k 4.4 cr 0.90 Total bilirubin 2.8 up to 3.8 AST 332 ALT 194 alk phos 319 Lipase 63 IMAGING: Computed tomography scan abdomen and pelvis reports findings suggestive of common bile duct wall thickening with intraluminal debris, questionable sludge, hemorrhage or noncalcified calculi. Cholelithiasis without obvious changes of acute cholecystitis at this time. Large cystic lesion arising from the caudate lobe associated with adjacent nonspecific mesenteric stranding extending to the cold margin of the liver. Possibly complicated cyst. Unlikely but conceivably the cyst could represent a choledocho cyst. Gallbladder ultrasound reports distended gallbladder with cholelithiasis. Correlate for signs of systems of acute cholecystitis. Cystic lesion within the liver which are slightly complicated. Chest x-ray bilateral lower lobe infiltrate KUB x-ray air fluid levels scattered throughout the right abdominal x-ray. Correlate for ileus versus partial bowel obstruction given some stool in the rectum and colon. ASSESSMENT: 1. Right upper quadrant tenderness with nausea and decreased appetite 2. Distended gallbladder with cholelithiasis noted on abdominal ultrasound 3. Possible choledocholithiasis with elevated LFTs 4. Cystic lesions within the liver noted on ultrasound and CT PLAN: -Okay for clear liquid diet -Repeat LFTs in a.m. -Await GI evaluation for possible ERCP -Continue IV fluids -Continue supportive care Thank you for this consultation Physician Boy'S Adviser note has been reviewed by physician. Signing provider agrees with the documented findings, assessment, and plan of care. Past Medical History Past Medical History: Atrial Fibrillation Additional Past Medical History / Comment(s): PVC. History of Any Multi-Drug Resistant Organisms: None Reported Past Surgical History: Hysterectomy, Tonsillectomy Past Psychological History: No Psychological Hx Reported Smoking Status: Former smoker Past Alcohol Use History: None Reported Past Drug Use History: None Reported Medications and Allergies Home Medications Medication Instructions Recorded Confirmed Type Cyanocobalamin [Vitamin B-12] 500 mcg PO DAILY 12/09/14 01/02/23 History Cholecalciferol [Vitamin D3 (10 10 mcg PO DAILY 01/02/23 01/02/23 History Mcg = 400 Iu)] Galantamine HBr [Razadyne ER] 16 mg PO DAILY 01/02/23 01/02/23 History Ginkgo Biloba [place] Extract [Ginkgo 40 mg PO DAILY@1200 01/02/23 01/02/23 History Biloba] Magnesium 250 mg PO DAILY@1200 01/02/23 01/02/23 History Metoprolol Succinate (ER) [Toprol 25 mg PO DAILY 01/02/23 01/02/23 History Xl] Zinc Gluconate [Zinc] 50 mg PO DAILY 01/02/23 01/02/23 History Allergies Allergy/AdvReac Type Severity Reaction Status Date / Time diclofenac sodium Allergy Rash/Hives Verified 01/02/23 07:38 [facility] Penicillins Allergy Rash/Hives Verified 01/02/23 07:38 Surgical - Exam Vital Signs Temp Pulse Resp BP Pulse Ox 98.4 F 95 18 109/72 96 01/01/23 20:29 01/01/23 20:29 01/01/23 20:29 01/01/23 20:29 01/01/23 20:29 Results - Labs 01/02/23 06:30 01/02/23 06:30 Abnormal Lab Results - Last 24 Hours (Table) 01/01/23 01/01/23 01/02/23 Range/Units 20:34 20:34 06:30 RBC 3.63 L 3.34 L (3.80-5.40) m/uL Hgb 10.8 L (11.4-16.0) gm/dL Hct 32.8 L (34.0-46.0) % Neutrophils # 8.6 H (1.3-7.7) k/uL Lymphocytes # 0.8 L 0.7 L (1.0-4.8) k/uL Sodium 133 L (137-145) mmol/L BUN 19 H (7-17) mg/dL Glucose 125 H (74-99) mg/dL Total Bilirubin 2.8 H (0.2-1.3) mg/dL AST 366 H (14-36) U/L ALT 152 H (4-34) U/L Alkaline Phosphatase 282 H (38-126) U/L Total Protein (6.3-8.2) g/dL Albumin (3.5-5.0) g/dL 01/02/23 Range/Units 06:30 RBC (3.80-5.40) m/uL Hgb (11.4-16.0) gm/dL Hct (34.0-46.0) % Neutrophils # (1.3-7.7) k/uL Lymphocytes # (1.0-4.8) k/uL Sodium 134 L (137-145) mmol/L BUN (7-17) mg/dL Glucose 100 H (74-99) mg/dL Total Bilirubin 3.8 H (0.2-1.3) mg/dL AST 332 H (14-36) U/L ALT 194 H (4-34) U/L Alkaline Phosphatase 319 H (38-126) U/L Total Protein 5.5 L (6.3-8.2) g/dL Albumin 3.0 L (3.5-5.0) g/dL Diabetes panel 01/01/23 01/02/23 Range/Units 20:34 06:30 Sodium 133 L 134 L (137-145) mmol/L Potassium 4.4 4.4 (3.5-5.1) mmol/L Chloride 100 103 (98-107) mmol/L Carbon Dioxide 24 24 (22-30) mmol/L BUN 19 H 16 (7-17) mg/dL Creatinine 0.91 0.90 (0.52-1.04) mg/dL Glucose 125 H 100 H (74-99) mg/dL Calcium 9.9 9.3 (8.4-10.2) mg/dL AST 366 H 332 H (14-36) U/L ALT 152 H 194 H (4-34) U/L Alkaline Phosphatase 282 H 319 H (38-126) U/L Total Protein 6.4 5.5 L (6.3-8.2) g/dL Albumin 3.7 3.0 L (3.5-5.0) g/dL Calcium panel 01/01/23 01/02/23 Range/Units 20:34 06:30 Calcium 9.9 9.3 (8.4-10.2) mg/dL Albumin 3.7 3.0 L (3.5-5.0) g/dL Pituitary panel 01/01/23 01/02/23 Range/Units 20:34 06:30 Sodium 133 L 134 L (137-145) mmol/L Potassium 4.4 4.4 (3.5-5.1) mmol/L Chloride 100 103 (98-107) mmol/L Carbon Dioxide 24 24 (22-30) mmol/L BUN 19 H 16 (7-17) mg/dL Creatinine 0.91 0.90 (0.52-1.04) mg/dL Glucose 125 H 100 H (74-99) mg/dL Calcium 9.9 9.3 (8.4-10.2) mg/dL Adrenal panel 01/01/23 01/02/23 Range/Units 20:34 06:30 Sodium 133 L 134 L (137-145) mmol/L Potassium 4.4 4.4 (3.5-5.1) mmol/L Chloride 100 103 (98-107) mmol/L Carbon Dioxide 24 24 (22-30) mmol/L BUN 19 H 16 (7-17) mg/dL Creatinine 0.91 0.90 (0.52-1.04) mg/dL Glucose 125 H 100 H (74-99) mg/dL Calcium 9.9 9.3 (8.4-10.2) mg/dL Total Bilirubin 2.8 H 3.8 H (0.2-1.3) mg/dL AST 366 H 332 H (14-36) U/L ALT 152 H 194 H (4-34) U/L Alkaline Phosphatase 282 H 319 H (38-126) U/L Total Protein 6.4 5.5 L (6.3-8.2) g/dL Albumin 3.7 3.0 L (3.5-5.0) g/dL
[2023-01-02] MEDS: PANTOPRAZOLE 40 MG/10 ML VIAL IVP SCH ×2 (15:36→20:54)
[2023-01-02 17:54] LABS: Bilirubin,Urine 2+ (Negative); Color,Urine Orange; Glucose,Urine (UA) Negative (Negative); Ketones,Urine 1+ (Negative); Protein,Urine 1+ (Negative); Specific Gravity,Urine 1.025 (1.001-1.035)
[2023-01-02 17:55] LABS: Blood,Urine Moderate (Negative); Leukocyte Esterase,Urine Moderate (Negative); Nitrite,Urine Negative (Negative)
[2023-01-02 19:08] LABS: Mucus,Urine Occasional /hpf; RBC,Urine 17 /hpf (0-5); Squamous Epithelial Cell,Urine 1 /hpf (0-4); WBC,Urine 9 /hpf (0-5)
[2023-01-02 19:10] LABS: Appearance,Urine Clear (Clear)
[2023-01-02] MEDS ORDERED: HEPARIN SODIUM,PORCINE 5,000 UNIT/ML 1 ML VIAL SQ SCH (21:00)
[2023-01-03] MEDS: SODIUM CHLORIDE 0.9% 1,000 ML IV SCH ×3 (00:21→19:01)
[2023-01-03] MEDS: PANTOPRAZOLE 40 MG/10 ML VIAL IVP SCH ×2 (08:08→20:30)
[2023-01-03] MEDS: METOPROLOL SUCCINATE (ER) 25 MG TAB.ER.24H PO SCH (08:11)
[2023-01-03 08:32] LABS: ALT 114 U/L (8-44); AST 96 U/L (13-35); Albumin 2.9 g/dL (3.8-4.9); Albumin/Globulin Ratio 1.71 Ratio (1.60-3.17); Alkaline Phosphatase 288 U/L (41-126); BUN/Creat Ratio 17.88 Ratio (12.00-20.00); Blood Urea Nitrogen 14.3 mg/dL (9.0-27.0); Calcium 8.7 mg/dL (8.7-10.3); Carbon Dioxide 20.7 mmol/L (21.6-31.8); Chloride 108 mmol/L (96-109); Globulin 1.7 g/dL (1.6-3.3); Glucose 91 mg/dL (70-110); Potassium 4.4 mmol/L (3.5-5.5); Sodium 137 mmol/L (135-145); Total Bilirubin 1.6 mg/dL (0.3-1.2); Total Protein 4.6 g/dL (6.2-8.2)
[2023-01-03 08:40] LABS: Basophils # (A) 0.02 X 10*3/uL (0.00-0.10); Basophils % (A) 0.3 %; Eosinophils # (A) 0.01 X 10*3/uL (0.04-0.35); Eosinophils % (A) 0.1 %; HGB 8.6 g/dL (12.0-15.0); Lymphocytes # (A) 0.46 X 10*3/uL (0.90-5.00); Lymphocytes % (A) 5.9 %; MCH 30.6 pg (27.0-32.0); MCHC 31.9 g/dL (32.0-37.0); MCV 96.1 FL (80.0-97.0); Monocytes # (A) 1.23 X 10*3/uL (0.20-1.00); Monocytes % (A) 15.8 %; NRBC Per 100 WBC 0 X 10*3/uL (0.00-0.01); Neutrophils # (A) 6.03 X 10*3/uL (1.80-7.70); Neutrophils % (A) 77.3 %; Platelet Count 181 X 10*3/uL (140-440); RBC 2.81 X 10*6/uL (4.10-5.20); RDW 12.9 % (11.5-14.5)
[2023-01-03] MEDS: ZINC SULFATE 220 MG CAP PO SCH (08:59)
--- NOTE | 2023-01-03 12:04 | P.CONS ---
History of Present Illness - Reason for Consult Consult date: 01/03/23 CBD stones Requesting physician: Ruba Mccormack - Chief Complaint Heart palpitations, abdominal pain - History of Present Illness This is a pleasant 82-year-old female with memory loss, history of atrial fibrillation not on anticoagulation who came into the emergency department with complaints of palpitations and abdominal pain. Patient at first could not recall why she came into the emergency department and states that she has a poor memory. Chart was reviewed and history was obtained from that. She states she's had some nausea but no vomiting. Most of her pain is in the upper abdomen but some to the mid and lower abdomen. Nonradiating to her back. She was noted to have elevated LFTs on admission. She had a CT of the abdomen and pelvis suggesting common bile duct wall thickness with intraluminal debris questionable sludge, hemorrhage or noncalcified calculi. Cholelithiasis without obvious changes of acute cholecystitis a large cystic lesion arising from the caudad lobe of liver. She also underwent gallbladder ultrasound that reports distended gallbladder with cholelithiasis, cystic lesion within the liver which are slightly complicated. Patient states nausea has improved, as well as abdominal pain. She is sitting up in her chair and appears comfortable. She did have one max temp of 100.9 early this morning but has been afebrile since. On admission patient had elevated LFTs with a total bilirubin of 2.8, bilirubin increased to 3.8 yesterday with AST 332 ALT 194 and alkaline phosphatase 319 Today's labs WBC 7.8 hemoglobin 8.6 hematocrit 27 platelet count 181,000 INR 0.9 sodium 137 potassium 4.4 B1 14 creatinine 0.8 total bilirubin 1.6 AST 96 ALT 114 alkaline phosphatase 288 Review of Systems REVIEW OF SYSTEMS: CARDIOPULMONARY: No chest pain or shortness of breath. Gastrointestinal: Upper abdominal pain, nausea with no vomiting. No hematemesis, coffee-ground emesis. No rectal bleeding, or melena. GENITOURINARY: No dysuria or hematuria. MUSCULOSKELETAL: Reports normal range of motion. SKIN: No rashes. No jaundice. ENDOCRINE: No chills, fevers. No excessive weight gain or loss. No polydipsia or polyuria. PSYCHIATRIC: Unremarkable. NEUROLOGY: No change in mental status. Denies dizziness, headache. ENT: Vision unremarkable. CONSTITUTIONAL: No recent weight loss. No fever, chills, night sweats. ROS unobtainable: due to mental status Past Medical History Past Medical History: Atrial Fibrillation Additional Past Medical History / Comment(s): PVC. History of Any Multi-Drug Resistant Organisms: None Reported Past Surgical History: Hysterectomy, Tonsillectomy Additional Past Surgical History / Comment(s): CArdiac Cath, colonoscopy,, arthoscopy R shoulder, L cataract impalnt Past Anesthesia/Blood Transfusion Reactions: No Reported Reaction Past Psychological History: No Psychological Hx Reported Smoking Status: Former smoker Past Alcohol Use History: None Reported Past Drug Use History: None Reported Medications and Allergies Home Medications Medication Instructions Recorded Confirmed Type Cyanocobalamin [Vitamin B-12] 500 mcg PO DAILY 12/09/14 01/02/23 History Cholecalciferol [Vitamin D3 (10 10 mcg PO DAILY 01/02/23 01/02/23 History Mcg = 400 Iu)] Galantamine HBr [Razadyne ER] 16 mg PO DAILY 01/02/23 01/02/23 History Ginkgo Biloba [place] Extract [Ginkgo 40 mg PO DAILY@1200 01/02/23 01/02/23 History Biloba] Magnesium 250 mg PO DAILY@1200 01/02/23 01/02/23 History Metoprolol Succinate (ER) [Toprol 25 mg PO DAILY 01/02/23 01/02/23 History Xl] Zinc Gluconate [Zinc] 50 mg PO DAILY 01/02/23 01/02/23 History Allergies Allergy/AdvReac Type Severity Reaction Status Date / Time diclofenac sodium Allergy Rash/Hives Verified 01/02/23 07:38 [From Voltaren] Penicillins Allergy Rash/Hives Verified 01/02/23 07:38 Physical Exam Vitals: Vital Signs Temp Pulse Pulse Resp BP BP Pulse Ox 01/03/23 02:00 100.9 F H 95 117/69 96 01/02/23 20:40 98.9 F 103 H 18 117/72 96 01/02/23 17:38 99.3 F 84 18 129/79 97 01/02/23 15:32 99.3 F 89 18 125/72 97 01/02/23 09:16 98.5 F 60 18 112/74 94 L Intake and Output 01/02/23 01/03/23 01/03/23 22:59 06:59 14:59 Intake Total 1250 Balance 1250 Intake: Intake, IV Titration 1250 Amount Sodium Chloride 0.9% 1, 1250 000 ml @ 125 mls/hr IV . Q8H [facility] Rx#:[id number] Other: # Voids 2 General appearance: The patient is alert, oriented, appears in no acute distress. HET: Head is normocephalic and atraumatic. Conjunctiva pink. Sclera anicteric. Neck: Supple without lymphadenopathy. Trachea midline. Heart: Regular. Lungs: Equal expansion, normal respiratory effort. Abdomen: Soft, diffuse tenderness, nondistended. No guarding or rigidity. Skin: No rashes. No jaundice. Extremities: Normal skin color and turgor. No pedal edema. Neurological: No focal deficits. Alert and oriented x3. Results CBC & Chem 7: 01/03/23 05:07 01/03/23 05:07 Labs: Abnormal Lab Results - Last 24 Hours (Table) 01/02/23 01/02/23 Range/Units 06:30 16:42 Sodium 134 L (137-145) mmol/L Glucose 100 H (74-99) mg/dL Total Bilirubin 3.8 H (0.2-1.3) mg/dL AST 332 H (14-36) U/L ALT 194 H (4-34) U/L Alkaline Phosphatase 319 H (38-126) U/L Total Protein 5.5 L (6.3-8.2) g/dL Albumin 3.0 L (3.5-5.0) g/dL Urine Protein 1+ H (Negative) Urine Bilirubin 2+ H (Negative) Urine RBC 17 H (0-5) /hpf Urine WBC 9 H (0-5) /hpf Urine Mucus Occasional H (None) /hpf Comments: See HPI for details Assessment and Plan (1) Choledocholithiasis Narrative/Plan: 82-year-old female who presented for concerns of atrial fibrillation and abdominal pain. Noted to have elevated LFTs and CAT scan with filling defect in the common bile duct concerning for choledochal lithiasis. Patient with complaints of epigastric pain right upper quadrant but also diffuse as well. Abdominal pain improved today, has some mild nausea but no vomiting. Labs are consistent with cholestatic pattern with CBD obstruction likely dealing with CBD stone. Plan for ERCP tomorrow. Gen. surgery following. Current Visit: Yes Status: Acute Code(s): K80.50 - CALCULUS OF BILE DUCT W/O CHOLANGITIS OR CHOLECYST W/O OBST SNOMED Code(s): 773505587 (2) History of atrial fibrillation Current Visit: Yes Status: Acute Code(s): Z86.79 - PERSONAL HISTORY OF OTHER DISEASES OF THE CIRCULATORY SYSTEM SNOMED Code(s): 965761785 (3) Cholelithiasis Current Visit: Yes Status: Acute Code(s): K80.20 - CALCULUS OF GALLBLADDER W/O CHOLECYSTITIS W/O OBSTRUCTION SNOMED Code(s): 071599954 Plan: 1. Continue symptomatic and supportive care 2. Patient may have clear liquid diet 3. Hold anticoagulation 6 hours prior to procedure 4. Nothing by mouth after midnight 5. Plan for ERCP tomorrow if still cleared by cardiology 6. Repeat CBC, CMP daily 7. Levaquin 500 mg IV every 24 hours started 8. Indomethacin as ordered 9. Continue with recommendations from general surgery 10. Continue with recommendations from cardiology Thank you for this consultation, we will continue to follow. Dr. Leni Campos I agree with the dictator's note, documented as a scribe by Mya Pierson.
[2023-01-03] MEDS ORDERED: HEPARIN SODIUM 1,000 UN/ML (10ML VL) IV ONE (12:11)
[2023-01-03] MEDS ORDERED: HEPARIN SODIUM 1,000 UN/ML (10ML VL) IV PRN (12:11)
[2023-01-03] MEDS ORDERED: LEVOFLOXACIN 500MG-D5W PMX 500 MG in DEXTROSE/WATER 1 100ML.BAG IVPB SCH ×2 (13:00→15:00)
--- NOTE | 2023-01-03 13:15 | P.PN ---
Subjective Progress Note Date: 01/03/23 CHIEF COMPLAINT: abdominal pain HISTORY OF PRESENT ILLNESS: Patient is currently sitting in bedside chair comfortably. She reports no abdominal pain. She is tolerating liquids. Denies any nausea or vomiting. Patient had low-grade temp of 100.9 early this morning. WBC 7.80 Hgb 8.6 platelets 181 sodium is 137 potassium 4.4 creatinine 0.8 total bilirubin trending down from 3.8-1.6 AST is down to 96 ALT down to 114 and alk phos down to 288. Patient seen by cardiology regarding her atrial fibrillation and is currently on heparin drip. PHYSICAL EXAM: VITAL SIGNS: Reviewed. GENERAL: Well-developed in no acute distress. ABDOMEN: Soft. Nondistended. Mild tenderness to palpation of the right upper quadrant NEUROLOGIC: Alert and oriented. Cranial nerves II through XII grossly intact. ASSESSMENT: 1. Possible choledocholithiasis 2. Distended gallbladder with cholelithiasis noted on abdominal ultrasound 3. History of atrial fibrillation PLAN: -Patient scheduled for ERCP tomorrow with GI service -Plan for laparoscopic cholecystectomy beginning of next week -Agree with adding antibiotics -Repeat labs in a.m. Physician Boiler Out note has been reviewed by physician. Signing provider agrees with the documented findings, assessment, and plan of care. Objective - Vital Signs Vital signs: Vital Signs Temp 98.0 F 01/03/23 06:48 Pulse 91 01/03/23 06:48 Resp 18 01/03/23 06:48 BP 124/77 01/03/23 06:48 Pulse Ox 97 01/03/23 06:48 FiO2 Intake & Output 01/02/23 01/03/23 01/03/23 18:59 06:59 18:59 Intake Total 1250 Balance 1250 Weight 48.988 kg Intake: Intake, IV Titration 1250 Amount Sodium Chloride 0.9% 1, 1250 000 ml @ 125 mls/hr IV . Q8H [facility] Rx#:[id number] Other: # Voids 2 1 - Labs CBC & Chem 7: 01/03/23 05:07 01/03/23 05:07 Labs: Abnormal Lab Results - Last 24 Hours (Table) 01/02/23 01/03/23 01/03/23 Range/Units 16:42 05:07 05:07 RBC 2.81 L (4.10-5.20) X 10*6/uL Hgb 8.6 L (12.0-15.0) g/dL Hct 27.0 L (37.2-46.3) % MCHC 31.9 L (32.0-37.0) g/dL Lymphocytes # 0.46 L (0.90-5.00) X 10*3/uL Monocytes # 1.23 H (0.20-1.00) X 10*3/uL Eosinophils # 0.01 L (0.04-0.35) X 10*3/uL Carbon Dioxide 20.7 L (21.6-31.8) mmol/L Total Bilirubin 1.6 H (0.3-1.2) mg/dL AST 96 H (13-35) U/L ALT 114 H (8-44) U/L Alkaline Phosphatase 288 H (41-126) U/L Total Protein 4.6 L (6.2-8.2) g/dL Albumin 2.9 L (3.8-4.9) g/dL Urine Protein 1+ H (Negative) Urine Bilirubin 2+ H (Negative) Urine RBC 17 H (0-5) /hpf Urine WBC 9 H (0-5) /hpf Urine Mucus Occasional H (None) /hpf
[2023-01-03] MEDS ORDERED: DILTIAZEM DRIP BOLUS FROM BAG 1 MG SOLN IV ONE (13:30)
--- NOTE | 2023-01-03 13:33 | P.CRDCN ---
History of Present Illness Consult date: 01/03/23 Consult reason: atrial fibrillation History of present illness: History of present illness: This is an 82 year old female patient of Dr. Sumanth Campos with past medical history of paroxysmal atrial fibrillation off anticoagulation as patient has had no episodes of atrial fibrillation in nearly 3 years, history of mitral valve insufficiency, aortic valve insufficiency. We have been asked to evaluate the patient for atrial fibrillation. Patient presented to the hospital on 01/01 for diarrhea and nausea following Thanksgiving. Patient was apparently discharged and came back was found to be in atrial fibrillation. She continued to have nausea and decreased appetite and was dehydrated along with some abdominal pain after eating. She was found to have a distended gallbladder with cholelithiasis on ultrasound and choledocholithiasis with elevated LFTs. She has been seen by GI and scheduled for ERCP tomorrow and also seen by general surgery planned for cholecystectomy next week. Patient states that she has felt some palpitations that she thought were extra beats. Telemetry was ordered as patient's heart rate was irregular and shortly thereafter, patient was in A. fib with RVR at 150 bpm. EKG #1 sinus rhythm with PACs, #2 atrial fibrillation at a ventricular rate of 147. Chest x-ray: No acute cardiopulmonary process. WBC 7.8, hemoglobin 8.6, platelet count 181. Sodium 137, potassium 4.4, chloride 108, CO2 20, creatinine 0.8. Liver function tests are elevated. Home cardiac medications: Review Of Systems: At the time of my evaluation: Constitutional: No fever, no chills. No weakness, fatigue or lethargy. EENT: No headache. No dizziness. Lungs: No shortness of breath, cough, no sputum production. No wheezing. Cardiovascular: No chest pain, no lower extremity edema. No palpitations. No paroxysmal nocturnal dyspnea. No orthopnea. No lightheadedness or dizziness. No syncopal episodes. Abdominal: No abdominal pain. No nausea, vomiting. Musculoskeletal: No myalgias. No muscle weakness, no frequent falls. Integumentary: No wounds. No rash. No unusual bruising. Neurologic: No aphasia. No facial droop. No change in mentation. Physical examination: Gen: This is an 82-year-old female. She is resting a recliner and appears to be comfortable. No acute distress. VS: reviewed HEENT: Head is atraumatic, normocephalic. Pupils equal, round. Sclerae is anicteric. NECK: Supple. No JVD. LUNGS: Clear to auscultation. No wheezes or rhonchi. No intercostal retractions. HEART: Irregular rate and rhythm. Systolic murmur. ABDOMEN: Soft mild tenderness. EXTREMITIES: No pedal edema. No calf tenderness. NEUROLOGICAL: Patient is awake, alert and oriented x3. Assessment: A. fib with RVR, paroxysmal Choledocholithiasis scheduled for ERCP tomorrow Cholelithiasis tentatively scheduled for cholecystectomy next week Plan: Start patient on a heparin drip and discontinue tomorrow morning in anticipation of ERCP Cardizem over this 10 mg followed by a drip at 5 mg Transfer patient to cardiac stepdown unit Obtain 2-D echocardiogram and Doppler study to assess cardiac structure and function Further recommendations to follow based upon clinical course Thank you kindly for this consultation. Nurse practitioner note has been reviewed, I agree with documented findings and plan of care. Patient was seen and examined. Past Medical History Past Medical History: Atrial Fibrillation Additional Past Medical History / Comment(s): PVC. History of Any Multi-Drug Resistant Organisms: None Reported Past Surgical History: Hysterectomy, Tonsillectomy Additional Past Surgical History / Comment(s): CArdiac Cath, colonoscopy,, arthoscopy R shoulder, L cataract impalnt Past Anesthesia/Blood Transfusion Reactions: No Reported Reaction Past Psychological History: No Psychological Hx Reported Smoking Status: Former smoker Past Alcohol Use History: None Reported Past Drug Use History: None Reported Medications and Allergies Home Medications Medication Instructions Recorded Confirmed Type Cyanocobalamin [Vitamin B-12] 500 mcg PO DAILY 12/09/14 01/02/23 History Cholecalciferol [Vitamin D3 (10 10 mcg PO DAILY 01/02/23 01/02/23 History Mcg = 400 Iu)] Galantamine HBr [Razadyne ER] 16 mg PO DAILY 01/02/23 01/02/23 History Ginkgo Biloba [place] Extract [Ginkgo 40 mg PO DAILY@1200 01/02/23 01/02/23 History Biloba] Magnesium 250 mg PO DAILY@1200 01/02/23 01/02/23 History Metoprolol Succinate (ER) [Toprol 25 mg PO DAILY 01/02/23 01/02/23 History Xl] Zinc Gluconate [Zinc] 50 mg PO DAILY 01/02/23 01/02/23 History Allergies Allergy/AdvReac Type Severity Reaction Status Date / Time diclofenac sodium Allergy Rash/Hives Verified 01/02/23 07:38 [From Voltaren] Penicillins Allergy Rash/Hives Verified 01/02/23 07:38 Physical Exam Vitals: Vital Signs Temp Pulse Pulse Resp BP BP Pulse Ox 01/03/23 06:48 98.0 F 91 18 124/77 97 01/03/23 02:00 100.9 F H 95 117/69 96 01/02/23 20:40 98.9 F 103 H 18 117/72 96 01/02/23 17:38 99.3 F 84 18 129/79 97 01/02/23 15:32 99.3 F 89 18 125/72 97 Intake and Output 01/02/23 01/03/23 01/03/23 22:59 06:59 14:59 Intake Total 1250 Balance 1250 Intake: Intake, IV Titration 1250 Amount Sodium Chloride 0.9% 1, 1250 000 ml @ 125 mls/hr IV . Q8H [facility] Rx#:[id number] Other: # Voids 2 1 Results 01/03/23 05:07 01/03/23 05:07 Cardiac Enzymes 01/03/23 Range/Units 05:07 AST 96 H (13-35) U/L CBC 01/03/23 Range/Units 05:07 WBC 7.80 (4.50-10.00) X 10*3/uL RBC 2.81 L (4.10-5.20) X 10*6/uL Hgb 8.6 L (12.0-15.0) g/dL Hct 27.0 L (37.2-46.3) % Plt Count 181 (140-440) X 10*3/uL Comprehensive Metabolic Panel 01/03/23 Range/Units 05:07 Sodium 137 (135-145) mmol/L Potassium 4.4 (3.5-5.5) mmol/L Chloride 108 (96-109) mmol/L Carbon Dioxide 20.7 L (21.6-31.8) mmol/L BUN 14.3 (9.0-27.0) mg/dL Creatinine 0.8 (0.6-1.5) mg/dL Glucose 91 (70-110) mg/dL Calcium 8.7 (8.7-10.3) mg/dL AST 96 H (13-35) U/L ALT 114 H (8-44) U/L Alkaline Phosphatase 288 H (41-126) U/L Total Protein 4.6 L (6.2-8.2) g/dL Albumin 2.9 L (3.8-4.9) g/dL Current Medications Generic Name Dose Route Start Last Admin Trade Name Freq PRN Reason Stop Dose Admin Sodium Chloride 1,000 mls @ 125 mls/hr 01/01/23 23:45 01/03/23 00:21 Saline 0.9% IV Not Given .Q8H [facility] Levofloxacin 500 mg/ IV 100 mls @ 100 mls/hr 01/03/23 13:00 Solution IVPB Q24H [facility] Protocol Magnesium Oxide 400 mg 01/03/23 12:00 Magnesium Oxide 400 Mg Tab PO DAILY@1200 [facility] Metoprolol Succinate 25 mg 01/03/23 09:00 01/03/23 08:11 Metoprolol Succinate (Er) 25 Mg Tab.Er.24h PO 25 mg DAILY [facility] Administration Morphine Sulfate 4 mg 01/02/23 01:07 Morphine Sulfate 4 Mg/Ml Syringe IV Q4HR PRN Severe Pain (Scale 7 to 10) Naloxone HCl 0.2 mg 01/02/23 01:07 Naloxone 0.4 Mg/Ml 1 Ml Vial IV Q2M PRN Opioid Reversal Ondansetron HCl 4 mg 01/02/23 01:07 Ondansetron 4 Mg/2 Ml Vial IVP Q8HR PRN Nausea And Vomiting Pantoprazole Sodium 40 mg 01/02/23 12:30 01/03/23 08:08 Pantoprazole 40 Mg/10 Ml Vial IVP 40 mg BID [facility] Administration Zinc Sulfate 220 mg 01/03/23 09:00 01/03/23 08:59 Zinc Sulfate 220 Mg Cap PO 220 mg DAILY [facility] Administration Intake and Output 01/02/23 01/03/23 01/03/23 22:59 06:59 14:59 Intake Total 1250 Balance 1250 Intake: Intake, IV Titration 1250 Amount Sodium Chloride 0.9% 1, 1250 000 ml @ 125 mls/hr IV . Q8H [facility] Rx#:[id number] Other: # Voids 2 1 01/03/23 05:07 01/03/23 05:07
[2023-01-03 13:34] LABS: Partial Thromboplastin Time 23.3 sec (22.0-30.0); Prothrombin Time 10.6 sec (10.0-12.5)
[2023-01-03] MEDS: DILTIAZEM 125 MG in SODIUM CHLORIDE 0.9% 100 ML IV SCH (13:43)
[2023-01-03] MEDS: HEPARIN SOD,PORK IN 0.45% NACL 25,000 UNIT in 0.45% NACL 1 250ML.BAG IV SCH (13:43)
[2023-01-03] MEDS: MAGNESIUM OXIDE 400 MG TAB PO SCH (13:53)
[2023-01-03] MEDS: ACETAMINOPHEN TAB 325 MG TAB PO PRN (14:18)
--- NOTE | 2023-01-03 14:58 | PN ---
PROGRESS NOTE DATE OF SERVICE: 01/03/2023 SUBJECTIVE: This is an 82-year-old woman, who was admitted with abdominal pain with possibly cholelithiasis and CBD stones. Also, the patient's LFTs done today showed some improvement. The patient is being evaluated by Gastroenterology, Vascular Surgery, and Cardiology. ERCP is being planned by Dr. Campos. No chest pain. No palpitations. No fever. PHYSICAL EXAMINATION: VITAL SIGNS: Pulse is 91, blood pressure 124/76, respirations 18. CHEST: Clear to auscultation. CARDIOVASCULAR: S1 and S2. ABDOMEN: Soft. Mild diffuse discomfort. LABORATORY DATA: Hemoglobin 8.6. Rest of the labs are noted. ASSESSMENT: 1. Abdominal pain with possible cholelithiasis and choledocholithiasis with nausea. 2. Normal liver function tests. 3. Possible partial small bowel obstruction, improved. 4. Atrial fibrillation with fast ventricular rate present on admission, rate controlled currently. 5. Hyponatremia. 6. Anemia. 7. Premature ventricular contractions. 8. Multiple complex medical issues. RECOMMENDATIONS: Recommend to continue current medications. Continue symptomatic treatment. Otherwise, ERCP. Followed by possibly Surgery. Recommend to repeat labs. Continue to monitor. Guarded prognosis because of multiple complex medical issues. Further recommendations to follow. MMODL / IJN: [id number] /
[2023-01-03] MEDS ORDERED: PIPERACILLIN-TAZOBACTAM 3.375 GM in SODIUM CHLORIDE 0.9% 100 ML IVPB SCH (16:00)
[2023-01-03] MEDS: CEFEPIME 2 GM in SODIUM CHLORIDE 0.9% 100 ML IVPB SCH (17:03)
--- NOTE | 2023-01-03 17:38 | CA ---
Transthoracic Echo Report Name: Catrachita Dimas Age: 82 Gender: F : 1940 Exam Date: 01/03/2023 12:33 Exam Location: [place] [facility] Ht (in): 62 Wt (lb): 108 Ordering Physician: Ruba Mccormack MD Attending/Referring Phys: Dining Room Cashier Vladimir Guevara Procedure CPT: Indications: afib Cardiac Hx: Technical Quality: Technically difficult study Contrast 1: Definity Total Dose (mL): 2 Contrast 2: Total Dose (mL): MEASUREMENTS (Male / Female) Normal Values 2D ECHO LV Diastolic Diameter PLAX 3.3 cm 4.2 - 5.9 / 3.9 - 5.3 cm LV Systolic Diameter PLAX 2.3 cm IVS Diastolic Thickness 1.0 cm 0.6 - 1.0 / 0.6 - 0.9 cm LVPW Diastolic Thickness 1.0 cm 0.6 - 1.0 / 0.6 - 0.9 cm LV Relative Wall Thickness 0.6 RV Internal Dim ED PLAX 3.2 cm LVOT Diameter 2.0 cm Aortic Root Diameter 3.4 cm LA Systolic Diameter LX 3.4 cm 3.0 - 4.0 / 2.7 - 3.8 cm LV Diastolic Volume MOD BP 29.6 cm??? 67 - 155 / 56 - 104 cm??? LV Systolic Volume MOD BP 14.7 cm??? 22 - 58 / 19 - 49 cm??? LV Ejection Fraction MOD BP 50.4 % >= 55 % LV Cardiac Index MOD BP 1285.1 cm???/min???m??? LV Diastolic Volume MOD 4C 35.8 cm??? LV Systolic Volume MOD 4C 17.4 cm??? LV Ejection Fraction MOD 4C 51.4 % LV Cardiac Index MOD 4C 1588.0 cm???/min???m??? LV Diastolic Length 4C 4.9 cm LV Systolic Length 4C 4.2 cm LV Diastolic Volume MOD 2C 24.0 cm??? LV Systolic Volume MOD 2C 12.5 cm??? LV Ejection Fraction MOD 2C 48.1 % LV Cardiac Index MOD 2C 995.6 cm???/min???m??? LV Diastolic Length 2C 4.8 cm LV Systolic Length 2C 4.2 cm LA Volume 43.8 cm??? 18 - 58 / 22 - 52 cm??? LA Volume Index 30.0 cm???/m??? 16 - 28 cm???/m??? Ascending Aorta Diameter 3.2 cm DOPPLER AV Peak Velocity 125.0 cm/s AV Peak Gradient 6.3 mmHg AI Peak Velocity 442.9 cm/s AI Peak Gradient 78.5 mmHg AI Pressure Half Time 511.2 ms LVOT Peak Velocity 60.3 cm/s LVOT Peak Gradient 1.5 mmHg LVOT Velocity Time Integral 9.7 cm LVOT Stroke Volume 29.4 cm??? LVOT Stroke Volume Index 20.0 ml/m??? LVOT Cardiac Index 2530.2 cm???/min???m??? AV Area Cont Eq pk 1.5 cm??? MV Peak Velocity 125.5 cm/s MV Peak Gradient 6.3 mmHg MV Mean Velocity 57.5 cm/s MV Mean Gradient 1.7 mmHg MV Velocity Time Integral 18.2 cm MR Peak Velocity 466.5 cm/s MR Peak Gradient 87.1 mmHg TR Peak Velocity 288.8 cm/s TR Peak Gradient 33.4 mmHg Right Ventricular Systolic Press 38.4 mmHg PV Peak Velocity 94.9 cm/s PV Peak Gradient 3.6 mmHg FINDINGS Left Ventricle Normal LV size and wall thickness. Right Ventricle Mildly enlarged RV. RVSP= 38mmHg. Right Atrium Moderate right atrial dilatation. Left Atrium Moderate left atrial dilatation. LA volue index= 30ml/m2 Mitral Valve Moderate posterior annulus calcification. Moderate MR. Aortic Valve Trileaflet aortic valve. Moderate AI. Tricuspid Valve Structurally normal tricuspid valve. Severe TR. Pulmonic Valve Structurally normal pulmonic valve. Mild PI. Pericardium Normal pericardium. Aorta Normal size aortic root. CONCLUSIONS Normal LV function Moderate mitral and aortic regurgitation Severe tricuspid regurgitation Previewed by: Dr. Raji Campos MD (Electronically Signed) Final Date: 03 January 2023 17:37
[2023-01-04] MEDS: SODIUM CHLORIDE 0.9% 1,000 ML IV SCH ×3 (03:49→19:36)
[2023-01-04] MEDS: ZINC SULFATE 220 MG CAP PO SCH (08:47)
[2023-01-04] MEDS: METOPROLOL SUCCINATE (ER) 25 MG TAB.ER.24H PO SCH (08:47)
[2023-01-04] MEDS: ACETAMINOPHEN TAB 325 MG TAB PO PRN (08:47)
[2023-01-04] MEDS: CEFEPIME 2 GM in SODIUM CHLORIDE 0.9% 100 ML IVPB SCH ×2 (08:48→19:33)
[2023-01-04] MEDS: PANTOPRAZOLE 40 MG/10 ML VIAL IVP SCH ×2 (08:48→19:33)
--- NOTE | 2023-01-04 08:51 | P.CONS ---
History of Present Illness - Reason for Consult Consult date: 01/03/23 - History of Present Illness Patient is a 82-year-old female with a past medical history significant for atrial fibrillation patient presenting to the hospital 2 days ago concerning for A-fib apparently the patient Said that she has A-fib did have some palpitation denies any chest pain lightheadedness shortness of breath patient will presentation to the hospital was afebrile however she did spike a fever of 100.9 earlier this morning and did have a temperature of 101.7 F this afternoon patient also tachycardic mildly hypertensive not hypoxic no need for supplemental oxygen patient did have a white count of 8.2 creatinine 0.8 liver enzymes are elevated patient did have a abdominal pelvis CT findings suggestive of common bile duct wall thickening with intraluminal diabetes cholelithiasis without obvious change of acute cholecystitis patient was started on Levaquin concerning for cholangitis subsequently Zosyn was added however the patient did have a penicillin allergy infectious disease was consulted for further management of antibiotic therapy, patient currently denies having any chest pain or shortness of breath or cough she did have a mild epigastric and abdominal pain with associated nausea but no vomiting no diarrhea no constipation Past Medical History Past Medical History: Atrial Fibrillation Additional Past Medical History / Comment(s): PVC. History of Any Multi-Drug Resistant Organisms: None Reported Past Surgical History: Hysterectomy, Tonsillectomy Additional Past Surgical History / Comment(s): CArdiac Cath, colonoscopy,, arthoscopy R shoulder, L cataract impalnt Past Anesthesia/Blood Transfusion Reactions: No Reported Reaction Past Psychological History: No Psychological Hx Reported Smoking Status: Former smoker Past Alcohol Use History: None Reported Past Drug Use History: None Reported Medications and Allergies Home Medications Medication Instructions Recorded Confirmed Type Cyanocobalamin [Vitamin B-12] 500 mcg PO DAILY 12/09/14 01/02/23 History Cholecalciferol [Vitamin D3 (10 10 mcg PO DAILY 01/02/23 01/02/23 History Mcg = 400 Iu)] Galantamine HBr [Razadyne ER] 16 mg PO DAILY 01/02/23 01/02/23 History Ginkgo Biloba [place] Extract [Ginkgo 40 mg PO DAILY@1200 01/02/23 01/02/23 History Biloba] Magnesium 250 mg PO DAILY@1200 01/02/23 01/02/23 History Metoprolol Succinate (ER) [Toprol 25 mg PO DAILY 01/02/23 01/02/23 History Xl] Zinc Gluconate [Zinc] 50 mg PO DAILY 01/02/23 01/02/23 History Allergies Allergy/AdvReac Type Severity Reaction Status Date / Time diclofenac sodium Allergy Rash/Hives Verified 01/02/23 07:38 [From Voltaren] Penicillins Allergy Rash/Hives Verified 01/02/23 07:38 Physical Exam Vitals: Vital Signs Temp Pulse Pulse Resp BP BP Pulse Ox 01/03/23 13:58 101.7 F H 116 H 18 113/73 97 01/03/23 13:40 156 H 17 108/72 96 01/03/23 12:18 119/67 95 01/03/23 06:48 98.0 F 91 18 124/77 97 01/03/23 02:00 100.9 F H 95 117/69 96 01/02/23 20:40 98.9 F 103 H 18 117/72 96 01/02/23 17:38 99.3 F 84 18 129/79 97 Intake and Output 01/03/23 01/03/23 01/03/23 06:59 14:59 22:59 Intake Total 1250 Balance 1250 Intake: Intake, IV Titration 1250 Amount Sodium Chloride 0.9% 1, 1250 000 ml @ 125 mls/hr IV . Q8H [facility] Rx#:[id number] Other: # Voids 2 1 1 Results CBC & Chem 7: 01/03/23 05:07 01/03/23 05:07 Labs: Abnormal Lab Results - Last 24 Hours (Table) 01/02/23 01/03/23 01/03/23 Range/Units 16:42 05:07 05:07 RBC 2.81 L (4.10-5.20) X 10*6/uL Hgb 8.6 L (12.0-15.0) g/dL Hct 27.0 L (37.2-46.3) % MCHC 31.9 L (32.0-37.0) g/dL Lymphocytes # 0.46 L (0.90-5.00) X 10*3/uL Monocytes # 1.23 H (0.20-1.00) X 10*3/uL Eosinophils # 0.01 L (0.04-0.35) X 10*3/uL Carbon Dioxide 20.7 L (21.6-31.8) mmol/L Total Bilirubin 1.6 H (0.3-1.2) mg/dL AST 96 H (13-35) U/L ALT 114 H (8-44) U/L Alkaline Phosphatase 288 H (41-126) U/L Total Protein 4.6 L (6.2-8.2) g/dL Albumin 2.9 L (3.8-4.9) g/dL Urine Protein 1+ H (Negative) Urine Bilirubin 2+ H (Negative) Urine RBC 17 H (0-5) /hpf Urine WBC 9 H (0-5) /hpf Urine Mucus Occasional H (None) /hpf Assessment and Plan Plan: 1patient was in the hospital with sepsis in this patient who did have a fever tachycardia elevated liver enzymes also likely cholangitis with evidence of dilated CBD and possible stone likely from enteric gram-negative pathogen. 2patient with a penicillin allergy that would limit the number of antibiotic safety use reaction was rash and has tolerated Keflex without any problem. 3discontinue Levaquin and Zosyn. 4start the patient cefepime 2 g every 8 hours. and daughter at the bedside question concern answered we will follow on clinical condition and cultures to further adjust medication if needed Thank you for this consultation we will follow the patient along with you Dictation was produced using [email or web address] dictation software. please excuse any grammatical, word or spelling errors. Time with Patient: Greater than 30
[2023-01-04 08:52] LABS: Partial Thromboplastin Time 27.6 sec (22.0-30.0); Prothrombin Time 11.3 sec (10.0-12.5)
[2023-01-04 09:06] LABS: Basophils % (A) 0 %; Eosinophils % (A) 0 %; HCT 28.6 % (34.0-46.0); Hypochromasia Slight; Lymphocytes # (A) 0.5 k/uL (1.0-4.8); Lymphocytes % (A) 6 %; MCHC 31.9 g/dL (31.0-37.0); MCV 100.5 fL (80.0-100.0); Mean Platelet Volume 9.7; Monocytes # (A) 0.7 k/uL (0-1.0); Monocytes % (A) 8 %; Neutrophils # (A) 7.2 k/uL (1.3-7.7); Neutrophils % (A) 84 %; Platelet Count 214 k/uL (150-450); RBC 2.84 m/uL (3.80-5.40); RDW 12.4 % (11.5-15.5); WBC 8.6 k/uL (3.8-10.6)
[2023-01-04] MEDS: DILTIAZEM 125 MG in SODIUM CHLORIDE 0.9% 100 ML IV SCH (09:07)
[2023-01-04 09:11] LABS: HGB 9.1 gm/dL (11.4-16.0)
[2023-01-04 09:24] LABS: ALT 77 U/L (4-34); AST 47 U/L (14-36); African American GFR (CKD) >90 (>60 ml/min/1.73 sqM); Albumin 2.5 g/dL (3.5-5.0); Alkaline Phosphatase 233 U/L (38-126); Anion Gap 12 mmol/L; Blood Urea Nitrogen 12 mg/dL (7-17); Calcium 8.3 mg/dL (8.4-10.2); Carbon Dioxide 17 mmol/L (22-30); Chloride 108 mmol/L (98-107); Glucose 80 mg/dL (74-99); Non-African American GFR(CKD) 82 (>60 ml/min/1.73 sqM); Potassium 3.9 mmol/L (3.5-5.1); Sodium 137 mmol/L (137-145); Total Bilirubin 0.9 mg/dL (0.2-1.3); Total Protein 4.8 g/dL (6.3-8.2)
[2023-01-04] MEDS: ONDANSETRON 4 MG/2 ML VIAL IVP PRN ×2 (10:25→18:23)
[2023-01-04] MEDS: HEPARIN SOD,PORK IN 0.45% NACL 25,000 UNIT in 0.45% NACL 1 250ML.BAG IV SCH (11:08)
--- NOTE | 2023-01-04 11:46 | P.PN ---
Subjective HISTORY OF PRESENT ILLNESS: This is an 82 year old female patient of Dr. Sumanth Campos with past medical history of paroxysmal atrial fibrillation off anticoagulation as patient has had no episodes of atrial fibrillation in nearly 3 years, history of mitral valve insufficiency, aortic valve insufficiency. We have been asked to evaluate the patient for atrial fibrillation. Patient presented to the hospital on 01/01 for diarrhea and nausea following Thanksgiving. Patient was apparently discharged and came back was found to be in atrial fibrillation. She continued to have nausea and decreased appetite and was dehydrated along with some abdominal pain after eating. She was found to have a distended gallbladder with cholelithiasis on ultrasound and choledocholithiasis with elevated LFTs. She has been seen by GI and scheduled for ERCP tomorrow and also seen by general surgery planned for cholecystectomy next week. Patient states that she has felt some palpitations that she thought were extra beats. Telemetry was ordered as patient's heart rate was irregular and shortly thereafter, patient was in A. fib with RVR at 150 bpm. EKG #1 sinus rhythm with PACs, #2 atrial fibrillation at a ventricular rate of 147. Chest x-ray: No acute cardiopulmonary process. WBC 7.8, hemoglobin 8.6, platelet count 181. Sodium 137, potassium 4.4, chloride 108, CO2 20, creatinine 0.8. Liver function tests are elevated 01/04/2023 Patient examined this morning at the bedside. Patient currently denies chest pain or pressure. She denies shortness of breath. Echocardiogram completed revealing normal LV function, moderate mitral regurgitation, moderate aortic regurgitation, and severe tricuspid regurgitation. Telemetry reveals sinus mechanism with PACs. Cardizem drip infusing at 5mg/hr. PHYSICAL EXAM: VITAL SIGNS: Reviewed. GENERAL: Well-developed in no acute distress. NECK: Supple. No JVD or thyromegaly LUNGS: Respirations even and unlabored. Lungs essentially clear to auscultation bilaterally. HEART: Regular rate and rhythm. S1 and S2 heard. Systolic murmur noted. EXTREMITIES: Normal range of motion. No clubbing or cyanosis. Peripheral pulses intact. No lower extremity edema ASSESSMENT: Choledocholithiasis, scheduled for ERCP today Cholelithiasis, tentatively scheduled for cholecystectomy next week Paroxysmal atrial fibrillation with RVR Valvular heart disease PLAN: Patient's heparin drip has been discontinued secondary to ERCP scheduled for today Patient will require oral anticoagulation postprocedure for atrial fibrillation when cleared by GI service Continue additional cardiac medications Discontinue IV Cardizem No absolute contraindications from a cardiac standpoint for patient to undergo ERCP Further recommendations pending patient course Nurse practitioner note has been reviewed by physician. Signing provider agrees with the documented findings, assessment, and plan of care. Objective - Vital Signs Vital signs: Vital Signs Temp 98.3 F 01/04/23 04:00 Pulse 106 H 01/04/23 04:00 Resp 18 01/04/23 04:00 BP 110/71 01/04/23 04:00 Pulse Ox 96 01/04/23 08:50 FiO2 Intake & Output 01/03/23 01/04/23 01/04/23 18:59 06:59 18:59 Intake Total 200.666 Balance 200.666 Intake: Intake, IV Titration 200.666 Amount Diltiazem 125 mg In 97 Sodium Chloride 0.9% 100 ml @ 5 MG/HR 5 mls/hr IV .Q24H [facility] Rx#:[id number] Heparin Sod,Pork in 0.45% 103.666 NaCl 25,000 unit In 0.45 % NaCl 1 250ml.bag @ 12 UNITS/KG/HR 5.879 mls/hr IV .Q24H [facility] Rx#: [id number] Other: # Voids 1 1 - Labs CBC & Chem 7: 01/04/23 08:01 01/04/23 08:01 Labs: Abnormal Lab Results - Last 24 Hours (Table) 01/03/23 01/04/23 01/04/23 Range/Units 19:38 08:01 08:01 RBC 2.84 L (3.80-5.40) m/uL Hgb 9.1 L D (11.4-16.0) gm/dL Hct 28.6 L (34.0-46.0) % MCV 100.5 H (80.0-100.0) fL Lymphocytes # 0.5 L (1.0-4.8) k/uL APTT 47.3 H (22.0-30.0) sec Chloride 108 H (98-107) mmol/L Carbon Dioxide 17 L (22-30) mmol/L Calcium 8.3 L (8.4-10.2) mg/dL AST 47 H (14-36) U/L ALT 77 H (4-34) U/L Alkaline Phosphatase 233 H (38-126) U/L Total Protein 4.8 L (6.3-8.2) g/dL Albumin 2.5 L (3.5-5.0) g/dL
[2023-01-04] MEDS ORDERED: INDOMETHACIN 100 MG SUPPOSITORY RECTAL ONE (12:00)
--- NOTE | 2023-01-04 13:35 | P.PN ---
Subjective Progress Note Date: 01/04/23 CHIEF COMPLAINT: abdominal pain HISTORY OF PRESENT ILLNESS: Patient went atrial fibrillation with RVR yesterday and required transfer to the cardiac floor. She has converted to sinus rhythm. She is scheduled for ERCP today with GI service. She did have a fever yesterday of 101.7. Antibiotics were adjusted by infectious disease. Patient complaining of epigastric right upper quadrant abdominal pain with intermittent nausea. Currently Afebrile. WBC 8.6 Hgb 9.1 platelets 214 total bilirubin normalized at 0.9 AST down to 47 ALT down from 114-77 and alk phos down to 233 PHYSICAL EXAM: VITAL SIGNS: Reviewed. GENERAL: Well-developed in no acute distress. ABDOMEN: Soft. Nondistended. Mild tenderness to palpation of the right upper quadrant and epigastric area NEUROLOGIC: Alert and oriented. Cranial nerves II through XII grossly intact. ASSESSMENT: 1. Possible choledocholithiasis 2. Distended gallbladder with cholelithiasis noted on abdominal ultrasound 3. Atrial fibrillation followed by cardiology PLAN: -Patient scheduled for ERCP today with GI service -Plan for laparoscopic cholecystectomy beginning of next week -Continue antibiotics Physician Direct Care Supervisor note has been reviewed by physician. Signing provider agrees with the documented findings, assessment, and plan of care. Objective - Vital Signs Vital signs: Vital Signs Temp 98.9 F 01/04/23 11:09 Pulse 77 01/04/23 13:07 Resp 20 01/04/23 11:09 BP 97/63 01/04/23 11:09 Pulse Ox 91 L 01/04/23 11:09 FiO2 Intake & Output 01/03/23 01/04/23 01/04/23 18:59 06:59 18:59 Intake Total 200.666 Output Total 1 Balance 199.666 Intake: Intake, IV Titration 200.666 Amount Diltiazem 125 mg In 97 Sodium Chloride 0.9% 100 ml @ 5 MG/HR 5 mls/hr IV .Q24H [facility] Rx#:[id number] Heparin Sod,Pork in 0.45% 103.666 NaCl 25,000 unit In 0.45 % NaCl 1 250ml.bag @ 12 UNITS/KG/HR 5.879 mls/hr IV .Q24H [facility] Rx#: [id number] Output: Stool 1 Other: Voiding Method Toilet # Voids 1 1 1 - Labs CBC & Chem 7: 01/04/23 08:01 01/04/23 08:01 Labs: Abnormal Lab Results - Last 24 Hours (Table) 01/03/23 01/04/23 01/04/23 Range/Units 19:38 08:01 08:01 RBC 2.84 L (3.80-5.40) m/uL Hgb 9.1 L D (11.4-16.0) gm/dL Hct 28.6 L (34.0-46.0) % MCV 100.5 H (80.0-100.0) fL Lymphocytes # 0.5 L (1.0-4.8) k/uL APTT 47.3 H (22.0-30.0) sec Chloride 108 H (98-107) mmol/L Carbon Dioxide 17 L (22-30) mmol/L Calcium 8.3 L (8.4-10.2) mg/dL AST 47 H (14-36) U/L ALT 77 H (4-34) U/L Alkaline Phosphatase 233 H (38-126) U/L Total Protein 4.8 L (6.3-8.2) g/dL Albumin 2.5 L (3.5-5.0) g/dL
[2023-01-04] MEDS ORDERED: LEVOFLOXACIN 250MG-D5W PMX 250 MG in DEXTROSE/WATER 1 50ML.BAG IVPB SCH (14:00)
[2023-01-04] MEDS ORDERED: Potassium Replacement Protocol 1 EACH MISC MISCELLANE PRN (14:15)
[2023-01-04] MEDS ORDERED: Magnesium Replacement Protocol 1 EACH MISC MISCELLANE PRN (14:15)
[2023-01-04] MEDS ORDERED: IV FLUID CONTINUATION 600 ML IV ONE (14:42)
[2023-01-04] MEDS ORDERED: fentaNYL (PF) 50 MCG/ML 2 ML AMP ONE (14:49)
[2023-01-04] MEDS ORDERED: PROPOFOL 10 MG/ML 20 ML VIAL IV ONE (14:49)
[2023-01-04] MEDS ORDERED: IOPAMIDOL-300 30ML BTL MISCELLANE ONE ×2 (14:57→15:14)
--- NOTE | 2023-01-04 15:19 | P.PCN ---
Date of Procedure: 01/04/23 Procedure(s) Performed: Brief history: Patient is a 82 year-old pleasant lady scheduled for an ERCP as part of evaluation of abdominal pain and elevated serum transaminases for the last 2 days' she was noted to have elevated bilirubin of 3.2 g/dL. CT of abdomen showed dilated CBD with possible distal CBD stone. . Procedure performed: ERCP with biliary sphincterotomy and balloon stone extraction Preoperative diagnoses: Severe epigastric pain, Elevated LFTs/jaundice/PET CT of abdomen showed dilated CBD and CBD stones. IV sedation per anesthesia: Procedure: After informed consent was obtained from the patient and after the risks benefits and complications including bleeding perforation and pancreatitis explained in detail the patient was brought into the endoscopy unit. The patient was placed in prone position and IV conscious sedation was administered by anesthesia under continuous monitoring. The Olympus side-viewing duodenoscope was then inserted into the mouth and esophagus intubated without any difficulty. The scope was gradually advanced into the stomach and duodenum. The major papilla was identified without any difficulty. Initial cannulation resulted in opacification of the common bile duct which was dilated measuring 1.5 cm in diameter with multiple filling defects. The filling defects measuring between 5 limited to 1 cm in size. At this time the catheter was exchanged over a guidewire and a biliary sphincterotome was passed over the guidewire into the distal CBD. A biliary sphincterotomy was performed at 11 o'clock position and was extended to 1.5 cm in length. Following this 11.5 mm balloon was passed into the common bile duct and gently inflated and withdrawn and total of 10 stones were extracted all measuring between 5 mm to 1.2 cm in size without any difficulty. The balloon was sweeped across the common bile duct several times until all the stones were extracted and finally occlusion cholangiogram was performed and no other filling defects were noted and the patient tolerated the procedure well. The pancreatic duct was intentionally not cannulated during the entire procedure. Impression: Dilated common bile duct with multiple filling defects status post biliary sphincterotomy and balloon stone extraction and total of 10 stones were extracted all measuring between 5 mm to 10 mm in size Pancreatic duct intentionally not cannulated Recommendations: The findings of this examination were discussed with the patient as well as a family. She will remain on clear liquids. Continue doxepin biotics. Monitor labs closely. She can proceed with gallbladder surgery tomorrow.
[2023-01-04] MEDS: MAGNESIUM OXIDE 400 MG TAB PO SCH (15:58)
--- NOTE | 2023-01-04 16:36 | P.PN ---
Subjective Progress Note Date: 01/04/23 Principal diagnosis: Reason for follow-up is fever and cholangitis Patient is a 82-year-old female with a past medical history significant for atrial fibrillation patient presenting to the hospital concerning for A-fib , patient also have elevated liver enzymes CT suggestive of CBD stone and the patient subsequently spiked a fever concerning for cholangitis On today's evaluation that is01/04/2023, the patient denies any fever or any chills, the patient is breathing comfortably on room air and denies any shortness of breath, the patient denies any chest pain, no cough or sputum production, patient denies nausea/vomiting /diarrhea and mild upper abdominal pain Patient did have a white count of 8.6, creatinine 0.70 Objective - Vital Signs Vital signs: Vital Signs Temp 98.7 F 01/04/23 08:39 Pulse 85 01/04/23 08:39 Resp 20 01/04/23 08:39 BP 127/67 01/04/23 08:39 Pulse Ox 96 01/04/23 08:50 FiO2 Intake & Output 01/03/23 01/04/23 01/04/23 18:59 06:59 18:59 Intake Total 200.666 Balance 200.666 Intake: Intake, IV Titration 200.666 Amount Diltiazem 125 mg In 97 Sodium Chloride 0.9% 100 ml @ 5 MG/HR 5 mls/hr IV .Q24H [facility] Rx#:[id number] Heparin Sod,Pork in 0.45% 103.666 NaCl 25,000 unit In 0.45 % NaCl 1 250ml.bag @ 12 UNITS/KG/HR 5.879 mls/hr IV .Q24H [facility] Rx#: [id number] Other: Voiding Method Toilet # Voids 1 1 - Exam GENERAL DESCRIPTION: An elderly female lying in bed in no distress RESPIRATORY SYSTEM: Unlabored breathing , clear to auscultation anteriorly HEART: S1 S2 regular rate and rhythm , ABDOMEN: Soft , no tenderness EXTREMITIES: No edema feet - Labs CBC & Chem 7: 01/04/23 08:01 01/04/23 08:01 Labs: Abnormal Lab Results - Last 24 Hours (Table) 01/03/23 01/04/23 01/04/23 Range/Units 19:38 08:01 08:01 RBC 2.84 L (3.80-5.40) m/uL Hgb 9.1 L D (11.4-16.0) gm/dL Hct 28.6 L (34.0-46.0) % MCV 100.5 H (80.0-100.0) fL Lymphocytes # 0.5 L (1.0-4.8) k/uL APTT 47.3 H (22.0-30.0) sec Chloride 108 H (98-107) mmol/L Carbon Dioxide 17 L (22-30) mmol/L Calcium 8.3 L (8.4-10.2) mg/dL AST 47 H (14-36) U/L ALT 77 H (4-34) U/L Alkaline Phosphatase 233 H (38-126) U/L Total Protein 4.8 L (6.3-8.2) g/dL Albumin 2.5 L (3.5-5.0) g/dL Assessment and Plan (1) Cholangitis Current Visit: Yes Status: Acute Code(s): K83.09 - OTHER CHOLANGITIS SNOMED Code(s): 51552924 (2) Choledocholithiasis Current Visit: Yes Status: Acute Code(s): K80.50 - CALCULUS OF BILE DUCT W/O CHOLANGITIS OR CHOLECYST W/O OBST SNOMED Code(s): 944616002 Plan: 1patient presented to the hospital with sepsis in this patient who did have a fever tachycardia elevated liver enzymes also likely cholangitis with evidence of dilated CBD and possible stone likely from enteric gram-negative pathogen. 2patient with a penicillin allergy that would limit the number of antibiotic safety use reaction was rash and has tolerated Keflex without any problem. 3patient to continue with cefepime 2 g every 8 hours awaiting ERCP this afternoon Family the bedside questions were answered Dictation was produced using [employer] dictation software. please excuse any gram matical, word or spelling errors. Time with Patient: Less than 30
--- NOTE | 2023-01-04 16:41 | FL ---
Intraoperative/procedural fluoroscopic services were provided. Total fluoroscopy time is 38.5 seconds with a total of 2 submitted images to PACS. Please see the operative/procedural note for further det ails. DAP: 1.888 Gycm2
--- NOTE | 2023-01-04 17:01 | PN ---
PROGRESS NOTE DATE OF SERVICE: 01/04/2023 SUBJECTIVE: This is an 82-year-old woman, who was admitted with abdominal pain, possibly had choledocholithiasis. The patient is also running fever, possibly cholangitis. The patient is on broad-spectrum IV antibiotics. The patient is scheduled to have ERCP today followed by possible surgery. Cardiology is following the patient closely also. No chest pain. No palpitation. PHYSICAL EXAMINATION: VITAL SIGNS: Pulse is 77, blood pressure 97/63, respirations 20. HEENT: Conjunctivae are normal. NECK: No jugular venous distention. CARDIOVASCULAR: S1 and S2 muffled. RESPIRATORY: Breath sounds diminished at the bases. ABDOMEN: Soft and nontender. LEGS: No edema. NERVOUS SYSTEM: Nonfocal. LABORATORY DATA: Hemoglobin 9.1. CMP noted. Total bilirubin is 0.9. Alkaline phosphatase is 233. ASSESSMENT: 1. Abdominal pain with possible choledocholithiasis and cholelithiasis with nausea. 2. Fever, possibly cholangitis. 3. Abnormal liver function tests. 4. Possible partial small bowel obstruction, improved. 5. Atrial fibrillation with fast ventricular rate, rate controlled currently. 6. Hyponatremia. 7. Anemia. 8. Premature ventricular contractions. 9. Multiple complex medical issues. RECOMMENDATIONS: Recommend to continue current medications. Continue symptomatic treatment. Monitor lytes closely. Repeat labs. Cardiology, Surgery, and Gastroenterology evaluations to continue. Stable, but overall prognosis is guarded. Further recommendations to follow. MMODL / IJN: [id number] /
[2023-01-05] MEDS: SODIUM CHLORIDE 0.9% 1,000 ML IV SCH ×7 (04:49→21:18)
[2023-01-05] MEDS: CEFEPIME 2 GM in SODIUM CHLORIDE 0.9% 100 ML IVPB SCH ×2 (08:27→21:14)
[2023-01-05] MEDS: PANTOPRAZOLE 40 MG/10 ML VIAL IVP SCH ×2 (08:28→21:14)
[2023-01-05] MEDS: ZINC SULFATE 220 MG CAP PO SCH (08:28)
[2023-01-05] MEDS: METOPROLOL SUCCINATE (ER) 25 MG TAB.ER.24H PO SCH (08:28)
--- NOTE | 2023-01-05 08:28 | XR ---
EXAMINATION TYPE: XR chest 1V portable DATE OF EXAM: 01/05/2023 6:56 AM CLINICAL INDICATION:Female, 82 years old with history of chf; [facility] COMPARISON: Chest radiographs from 12/25/2022. TECHNIQUE: XR chest 1V portable Frontal view of the chest. FINDINGS: Lungs/Pleura: No evidence of focal consolidation or pneumothorax. Blunting of the costophrenic angles is present. Pulmonary vascularity: Pulmonary vascular congestion. Heart/mediastinum: Cardiomediastinal silhouette is enlarged and stable. Musculoskeletal: No acute osseous pathology. Other findings: None IMPRESSION: Cardiomegaly, with worsening of pulmonary vascular congestion and bilateral pleural effusions. Correl ate with BNP for congestive heart failure.
--- NOTE | 2023-01-05 09:07 | P.PN ---
Subjective Progress Note Date: 01/05/23 Principal diagnosis: Choledocholithiasis This is a pleasant 82-year-old female with memory loss, history of atrial fibrillation not on anticoagulation who came into the emergency department with complaints of palpitations and abdominal pain. Patient at first could not recall why she came into the emergency department and states that she has a poor memory. Chart was reviewed and history was obtained from that. She states she's had some nausea but no vomiting. Most of her pain is in the upper abdomen but some to the mid and lower abdomen. Nonradiating to her back. She was noted to have elevated LFTs on admission. She had a CT of the abdomen and pelvis suggesting common bile duct wall thickness with intraluminal debris questionable sludge, hemorrhage or noncalcified calculi. Cholelithiasis without obvious changes of acute cholecystitis a large cystic lesion arising from the caudad lobe of liver. She also underwent gallbladder ultrasound that reports distended gallbladder with cholelithiasis, cystic lesion within the liver which are slightly complicated. Patient states nausea has improved, as well as abdominal pain. She is sitting up in her chair and appears comfortable. She did have one max temp of 100.9 early this morning but has been afebrile since. On admission patient had elevated LFTs with a total bilirubin of 2.8, bilirubin increased to 3.8 yesterday with AST 332 ALT 194 and alkaline phosphatase 319 Today's labs WBC 7.8 hemoglobin 8.6 hematocrit 27 platelet count 181,000 INR 0.9 sodium 137 potassium 4.4 B1 14 creatinine 0.8 total bilirubin 1.6 AST 96 ALT 114 alkaline phosphatase 288 01/05/2023 Patient seen and examined today as a follow-up. Yesterday she underwent ERCP with findings ofdilated bile duct with multiple filling defects status post biliary sphincterectomy and balloon stone extraction total of 10 stones measuring between 5 mm to 10 mm in size. She states that she has no abdominal pain and is feeling very well. denies any nausea or vomiting.She is currently nothing by mouth and states possible cholecystectomy today. Objective - Vital Signs Vital signs: Vital Signs Temp 98.2 F 01/05/23 04:00 Pulse 78 01/05/23 04:00 Resp 18 01/05/23 04:00 BP 118/68 01/05/23 04:00 Pulse Ox 92 L 01/05/23 04:00 FiO2 Intake & Output 01/04/23 01/05/23 01/05/23 18:59 06:59 18:59 Intake Total 400.666 Output Total 1 Balance 399.666 Intake: IV 200 Intake, IV Titration 200.666 Amount Diltiazem 125 mg In 97 Sodium Chloride 0.9% 100 ml @ 5 MG/HR 5 mls/hr IV .Q24H [facility] Rx#:[id number] Heparin Sod,Pork in 0.45% 103.666 NaCl 25,000 unit In 0.45 % NaCl 1 250ml.bag @ 12 UNITS/KG/HR 5.879 mls/hr IV .Q24H [facility] Rx#: [id number] Output: Stool 1 Other: Voiding Method Toilet Toilet # Voids 1 1 - Exam General appearance: The patient is alert, oriented, appears in no acute distress. HET: Head is normocephalic and atraumatic. Conjunctiva pink. Sclera anicteric. Neck: Supple without lymphadenopathy. Abdomen: Soft, nontender, nondistended with bowel sounds. No guarding or rigidity. Extremities: Normal skin color and turgor. No pedal edema Skin: No rashes, no jaundice Neurological: No focal deficits. Alert and oriented. - Labs CBC & Chem 7: 01/04/23 08:01 01/04/23 08:01 Labs: Abnormal Lab Results - Last 24 Hours (Table) 01/04/23 01/04/23 Range/Units 08:01 08:01 RBC 2.84 L (3.80-5.40) m/uL Hgb 9.1 L D (11.4-16.0) gm/dL Hct 28.6 L (34.0-46.0) % MCV 100.5 H (80.0-100.0) fL Lymphocytes # 0.5 L (1.0-4.8) k/uL Chloride 108 H (98-107) mmol/L Carbon Dioxide 17 L (22-30) mmol/L Calcium 8.3 L (8.4-10.2) mg/dL AST 47 H (14-36) U/L ALT 77 H (4-34) U/L Alkaline Phosphatase 233 H (38-126) U/L Total Protein 4.8 L (6.3-8.2) g/dL Albumin 2.5 L (3.5-5.0) g/dL Microbiology - Last 24 Hours (Table) 01/03/23 15:38 Blood Culture - Preliminary Blood Assessment and Plan (1) Choledocholithiasis Narrative/Plan: 82-year-old female who presented for concerns of atrial fibrillation and abdominal pain. Noted to have elevated LFTs and CAT scan with filling defect in the common bile duct concerning for choledochal lithiasis. Patient with complaints of epigastric pain right upper quadrant but also diffuse as well. Abdominal pain improved today, has some mild nausea but no vomiting. Labs are consistent with cholestatic pattern with CBD obstruction likely dealing with CBD stone. Plan for ERCP tomorrow. Gen. surgery following. 01/05/2023 Patient is status post ERCP. No further workup per gastroenterology. She will be scheduled for cholecystectomy with general surgery. Diet per recommendations from general surgery. Current Visit: Yes Status: Acute Code(s): K80.50 - CALCULUS OF BILE DUCT W/O CHOLANGITIS OR CHOLECYST W/O OBST SNOMED Code(s): 043060142 (2) History of atrial fibrillation Current Visit: Yes Status: Acute Code(s): Z86.79 - PERSONAL HISTORY OF OTHER DISEASES OF THE CIRCULATORY SYSTEM SNOMED Code(s): 789599847 (3) Cholelithiasis Current Visit: Yes Status: Acute Code(s): K80.20 - CALCULUS OF GALLBLADDER W/O CHOLECYSTITIS W/O OBSTRUCTION SNOMED Code(s): 106087638 Plan: 1. Continue symptomatic and supportive care 2. Advance diet as tolerated if cleared by general surgery 3. Recommend cholecystectomy for choledocholithiasis and cholelithiasis 4. Continue with recommendations from general surgery 5. Continue with recommendations from cardiology 6. Encourage ambulation Thank you for this consultation, no further intervention per gastroenterology. We will sign off at this time. Dr. Leni Campos I agree with the dictator's note, documented as a scribe by Mya Pierson.
[2023-01-05 09:56] LABS: Basophils % (A) 0 %; Eosinophils # (A) 0.1 k/uL (0-0.7); Eosinophils % (A) 1 %; HCT 30.6 % (34.0-46.0); HGB 9.8 gm/dL (11.4-16.0); Hypochromasia Moderate; Lymphocytes # (A) 0.6 k/uL (1.0-4.8); Lymphocytes % (A) 6 %; MCH 32.2 pg (25.0-35.0); MCHC 31.9 g/dL (31.0-37.0); MCV 100.8 fL (80.0-100.0); Mean Platelet Volume 9.1; Monocytes # (A) 0.7 k/uL (0-1.0); Monocytes % (A) 7 %; Neutrophils # (A) 8.5 k/uL (1.3-7.7); Neutrophils % (A) 84 %; Platelet Count 284 k/uL (150-450); RBC 3.04 m/uL (3.80-5.40); RDW 12.4 % (11.5-15.5); WBC 10.1 k/uL (3.8-10.6)
[2023-01-05 10:13] LABS: ALT 63 U/L (4-34); AST 36 U/L (14-36); African American GFR (CKD) 89 (>60 ml/min/1.73 sqM); Albumin 2.8 g/dL (3.5-5.0); Alkaline Phosphatase 253 U/L (38-126); Anion Gap 15 mmol/L; Blood Urea Nitrogen 20 mg/dL (7-17); Carbon Dioxide 14 mmol/L (22-30); Chloride 113 mmol/L (98-107); Glucose 84 mg/dL (74-99); Magnesium 2.1 mg/dL (1.6-2.3); Non-African American GFR(CKD) 77 (>60 ml/min/1.73 sqM); Potassium 3.9 mmol/L (3.5-5.1); Sodium 142 mmol/L (137-145); Total Bilirubin 0.7 mg/dL (0.2-1.3); Total Protein 5.2 g/dL (6.3-8.2)
[2023-01-05] MEDS: MAGNESIUM OXIDE 400 MG TAB PO SCH (11:39)
[2023-01-05] MEDS ORDERED: FUROSEMIDE 10 MG/ML 2 ML VIAL IV ONE (13:30)
--- NOTE | 2023-01-05 14:22 | P.PN ---
Subjective HISTORY OF PRESENT ILLNESS: This is an 82 year old female patient of Dr. Sumanth Campos with past medical history of paroxysmal atrial fibrillation off anticoagulation as patient has had no episodes of atrial fibrillation in nearly 3 years, history of mitral valve insufficiency, aortic valve insufficiency. We have been asked to evaluate the patient for atrial fibrillation. Patient presented to the hospital on 01/01 for diarrhea and nausea following Thanksgiving. Patient was apparently discharged and came back was found to be in atrial fibrillation. She continued to have nausea and decreased appetite and was dehydrated along with some abdominal pain after eating. She was found to have a distended gallbladder with cholelithiasis on ultrasound and choledocholithiasis with elevated LFTs. She has been seen by GI and scheduled for ERCP tomorrow and also seen by general surgery planned for cholecystectomy next week. Patient states that she has felt some palpitations that she thought were extra beats. Telemetry was ordered as patient's heart rate was irregular and shortly thereafter, patient was in A. fib with RVR at 150 bpm. EKG #1 sinus rhythm with PACs, #2 atrial fibrillation at a ventricular rate of 147. Chest x-ray: No acute cardiopulmonary process. WBC 7.8, hemoglobin 8.6, platelet count 181. Sodium 137, potassium 4.4, chloride 108, CO2 20, creatinine 0.8. Liver function tests are elevated 01/04/2023 Patient examined this morning at the bedside. Patient currently denies chest pain or pressure. She denies shortness of breath. Echocardiogram completed revealing normal LV function, moderate mitral regurgitation, moderate aortic regurgitation, and severe tricuspid regurgitation. Telemetry reveals sinus mechanism with PACs. Cardizem drip infusing at 5mg/hr. 01/05/2023 Patient examined this morning at the bedside. She is status post ERCP. She denies chest pain or pressure. She denies shortness of breath. Telemetry reveals sinus mechanism with a heart rate in the 90s. She is scheduled to undergo cholecystectomy on 01/08/2023. PHYSICAL EXAM: VITAL SIGNS: Reviewed. GENERAL: Well-developed in no acute distress. NECK: Supple. No JVD or thyromegaly LUNGS: Respirations even and unlabored. Lungs essentially clear to auscultation bilaterally. HEART: Regular rate and rhythm. S1 and S2 heard. Systolic murmur noted. EXTREMITIES: Normal range of motion. No clubbing or cyanosis. Peripheral pulses intact. No lower extremity edema ASSESSMENT: Choledocholithiasis, status post ERCP Cholelithiasis, scheduled for cholecystectomy next week Paroxysmal atrial fibrillation with RVR Valvular heart disease PLAN: Continue current cardiac medications Patient scheduled for cholecystectomy on 01/08/2023 Patient will require Eliquis postoperatively when cleared by general surgery Per Dr. Bill, patient does not require IV heparin while oral anticoagulation remains on hold Further recommendations pending patient course Nurse practitioner note has been reviewed by physician. Signing provider agrees with the documented findings, assessment, and plan of care. Objective - Vital Signs Vital signs: Vital Signs Temp 98.0 F 01/05/23 11:38 Pulse 86 01/05/23 11:38 Resp 18 01/05/23 11:38 BP 132/86 01/05/23 11:38 Pulse Ox 93 L 01/05/23 11:38 FiO2 Intake & Output 01/04/23 01/05/23 01/05/23 18:59 06:59 18:59 Intake Total 400.666 210 Output Total 1 Balance 399.666 210 Weight 48.988 kg Intake: IV 200 Intake, IV Titration 200.666 Amount Diltiazem 125 mg In 97 Sodium Chloride 0.9% 100 ml @ 5 MG/HR 5 mls/hr IV .Q24H [facility] Rx#:[id number] Heparin Sod,Pork in 0.45% 103.666 NaCl 25,000 unit In 0.45 % NaCl 1 250ml.bag @ 12 UNITS/KG/HR 5.879 mls/hr IV .Q24H [facility] Rx#: [id number] Oral 210 Output: Stool 1 Other: Voiding Method Toilet Toilet Toilet # Voids 1 1 1 - Labs CBC & Chem 7: 01/05/23 09:17 01/05/23 09:17 Labs: Abnormal Lab Results - Last 24 Hours (Table) 01/05/23 01/05/23 Range/Units 09:17 09:17 RBC 3.04 L (3.80-5.40) m/uL Hgb 9.8 L (11.4-16.0) gm/dL Hct 30.6 L (34.0-46.0) % MCV 100.8 H (80.0-100.0) fL Neutrophils # 8.5 H (1.3-7.7) k/uL Lymphocytes # 0.6 L (1.0-4.8) k/uL Chloride 113 H (98-107) mmol/L Carbon Dioxide 14 L (22-30) mmol/L BUN 20 H (7-17) mg/dL ALT 63 H (4-34) U/L Alkaline Phosphatase 253 H (38-126) U/L Total Protein 5.2 L (6.3-8.2) g/dL Albumin 2.8 L (3.5-5.0) g/dL Microbiology - Last 24 Hours (Table) 01/03/23 15:38 Blood Culture - Preliminary Blood
--- NOTE | 2023-01-05 15:45 | P.PN ---
Subjective Progress Note Date: 01/05/23 CHIEF COMPLAINT: abdominal pain HISTORY OF PRESENT ILLNESS: Patient hospitalized with choledocholithiasis. She status post ERCP with removal of 10 stones. She denies any abdominal pain. Denies any nausea or vomiting. Afebrile. WBC is 10.1 Hgb 9.8 total bilirubin normal at 0.7 LFTs trending down. Alk phos slightly elevated from 233-253 PHYSICAL EXAM: VITAL SIGNS: Reviewed. GENERAL: Well-developed in no acute distress. ABDOMEN: Soft. Nondistended. Nontender NEUROLOGIC: Alert and oriented. Cranial nerves II through XII grossly intact. ASSESSMENT: 1. Choledocholithiasis status post ERCP with removal 10 stones 2. Distended gallbladder with cholelithiasis noted on abdominal ultrasound 3. Possible cholangitis 4. Atrial fibrillation followed by cardiology PLAN: -Patient scheduled for laparoscopic cholecystectomy on 01/08/[address] jeronimo -Advance diet to low-fat -Continue antibiotics -Currently off of blood thinners Physician Party Chief note has been reviewed by physician. Signing provider agrees with the documented findings, assessment, and plan of care. Objective - Vital Signs Vital signs: Vital Signs Temp 97.9 F 01/05/23 08:23 Pulse 73 01/05/23 08:23 Resp 18 01/05/23 08:23 BP 123/68 01/05/23 08:23 Pulse Ox 94 L 01/05/23 08:23 FiO2 Intake & Output 01/04/23 01/05/23 01/05/23 18:59 06:59 18:59 Intake Total 400.666 Output Total 1 Balance 399.666 Intake: IV 200 Intake, IV Titration 200.666 Amount Diltiazem 125 mg In 97 Sodium Chloride 0.9% 100 ml @ 5 MG/HR 5 mls/hr IV .Q24H [facility] Rx#:[id number] Heparin Sod,Pork in 0.45% 103.666 NaCl 25,000 unit In 0.45 % NaCl 1 250ml.bag @ 12 UNITS/KG/HR 5.879 mls/hr IV .Q24H [facility] Rx#: [id number] Output: Stool 1 Other: Voiding Method Toilet Toilet Toilet # Voids 1 1 - Labs CBC & Chem 7: 01/05/23 09:17 01/05/23 09:17 Labs: Abnormal Lab Results - Last 24 Hours (Table) 01/05/23 01/05/23 Range/Units 09:17 09:17 RBC 3.04 L (3.80-5.40) m/uL Hgb 9.8 L (11.4-16.0) gm/dL Hct 30.6 L (34.0-46.0) % MCV 100.8 H (80.0-100.0) fL Neutrophils # 8.5 H (1.3-7.7) k/uL Lymphocytes # 0.6 L (1.0-4.8) k/uL Chloride 113 H (98-107) mmol/L Carbon Dioxide 14 L (22-30) mmol/L BUN 20 H (7-17) mg/dL ALT 63 H (4-34) U/L Alkaline Phosphatase 253 H (38-126) U/L Total Protein 5.2 L (6.3-8.2) g/dL Albumin 2.8 L (3.5-5.0) g/dL Microbiology - Last 24 Hours (Table) 01/03/23 15:38 Blood Culture - Preliminary Blood
--- NOTE | 2023-01-05 16:47 | P.PN ---
Subjective Progress Note Date: 01/05/23 Principal diagnosis: Reason for follow-up is fever and cholangitis Patient is a 82-year-old female with a past medical history significant for atrial fibrillation patient presenting to the hospital concerning for A-fib , patient also have elevated liver enzymes CT suggestive of CBD stone and the patient subsequently spiked a fever concerning for cholangitis patient is status post ERCP completed on 01/04/2023 On today's evaluation that is 01/05/2023 the patient remains to be afebrile, the patient is breathing comfortably on room air and no need for oxygen. The pa tient denies shortness of breath denies any chest pain or cough, patient denies nausea/vomiting or diarrhea and no abdominal pain. Patient did have a white count of 10.1, creatinine 0.74, blood cultures pending Objective - Vital Signs Vital signs: Vital Signs Temp 97.9 F 01/05/23 08:23 Pulse 73 01/05/23 08:23 Resp 18 01/05/23 08:23 BP 123/68 01/05/23 08:23 Pulse Ox 94 L 01/05/23 08:23 FiO2 Intake & Output 01/04/23 01/05/23 01/05/23 18:59 06:59 18:59 Intake Total 400.666 Output Total 1 Balance 399.666 Intake: IV 200 Intake, IV Titration 200.666 Amount Diltiazem 125 mg In 97 Sodium Chloride 0.9% 100 ml @ 5 MG/HR 5 mls/hr IV .Q24H [facility] Rx#:[id number] Heparin Sod,Pork in 0.45% 103.666 NaCl 25,000 unit In 0.45 % NaCl 1 250ml.bag @ 12 UNITS/KG/HR 5.879 mls/hr IV .Q24H [facility] Rx#: [id number] Output: Stool 1 Other: Voiding Method Toilet Toilet Toilet # Voids 1 1 - Exam GENERAL DESCRIPTION: An elderly female lying in bed in no distress RESPIRATORY SYSTEM: Unlabored breathing , clear to auscultation anteriorly HEART: S1 S2 regular rate and rhythm , ABDOMEN: Soft , no tenderness EXTREMITIES: No edema feet - Labs CBC & Chem 7: 01/05/23 09:17 01/05/23 09:17 Labs: Abnormal Lab Results - Last 24 Hours (Table) 01/05/23 01/05/23 Range/Units 09:17 09:17 RBC 3.04 L (3.80-5.40) m/uL Hgb 9.8 L (11.4-16.0) gm/dL Hct 30.6 L (34.0-46.0) % MCV 100.8 H (80.0-100.0) fL Neutrophils # 8.5 H (1.3-7.7) k/uL Lymphocytes # 0.6 L (1.0-4.8) k/uL Chloride 113 H (98-107) mmol/L Carbon Dioxide 14 L (22-30) mmol/L BUN 20 H (7-17) mg/dL ALT 63 H (4-34) U/L Alkaline Phosphatase 253 H (38-126) U/L Total Protein 5.2 L (6.3-8.2) g/dL Albumin 2.8 L (3.5-5.0) g/dL Microbiology - Last 24 Hours (Table) 01/03/23 15:38 Blood Culture - Preliminary Blood Assessment and Plan (1) Cholangitis Current Visit: Yes Status: Acute Code(s): K83.09 - OTHER CHOLANGITIS SNOMED Code(s): 08992575 (2) Choledocholithiasis Current Visit: Yes Status: Acute Code(s): K80.50 - CALCULUS OF BILE DUCT W/O CHOLANGITIS OR CHOLECYST W/O OBST SNOMED Code(s): 188174414 Plan: 1patient presented to the hospital with sepsis in this patient who did have a fever tachycardia elevated liver enzymes also likely cholangitis with evidence of dilated CBD and possible stone likely from enteric gram-negative pathogen. 2patient with a penicillin allergy that would limit the number of antibiotic safety use reaction was rash and has tolerated Keflex without any problem. 3patient is afebrile white count is normal, patient to continue with cefepime 2 g every 8 hours and monitor clinical course closely Family the bedside questions were answered Dictation was produced using [employer] dictation software. please excuse any grammatical, word or spelling errors. Time with Patient: Less than 30
[2023-01-06] MEDS ORDERED: METOPROLOL SUCCINATE (ER) 25 MG TAB.ER.24H PO STA (00:54)
--- NOTE | 2023-01-06 04:20 | PN ---
PROGRESS NOTE DATE OF SERVICE: 01/05/2023 SUBJECTIVE: This is an 82-year-old woman who was admitted with choledocholithiasis and cholelithiasis for ERCP removal of the 10 stones yesterday. The patient had possibly some cholangitis also. LFTs are on the diminishing trend. The chest x-ray shows some pulmonary vascular congestion. OBJECTIVE: VITAL SIGNS: Pulse is 86, blood pressure 132/83, respirations 18. CHEST: Few scattered rhonchi. ABDOMEN: Soft and nontender. LABS: Today's labs are bilirubin was 0.7, rest of the labs are noted. ASSESSMENT: 1. Abdominal pain with possible choledocholithiasis and cholelithiasis with nausea. 2. Fever, possibly cholangitis. 3. Abnormal liver function tests. 4. Possible partial small bowel obstruction, improved. 5. Atrial fibrillation with fast ventricular rate control currently. 6. Hyponatremia. 7. Anemia. 8. PVCs. 9. Multiple complex medical issues. RECOMMENDATIONS: Recommended to continue current management, continue symptomatic treatment, otherwise we will cut down the IV fluids and 2D echo. Follow closely with multiple consultants. 2D echo showed severe tricuspid regurgitation, normal LV function. Prognosis guarded. Stable currently. Further recommendations to follow. MMODL / IJN: [id number] /
[2023-01-06] MEDS: METOPROLOL SUCCINATE (ER) 25 MG TAB.ER.24H PO SCH (07:43)
[2023-01-06] MEDS: ZINC SULFATE 220 MG CAP PO SCH (07:43)
[2023-01-06] MEDS: PANTOPRAZOLE 40 MG/10 ML VIAL IVP SCH ×2 (07:43→19:54)
[2023-01-06] MEDS: CEFEPIME 2 GM in SODIUM CHLORIDE 0.9% 100 ML IVPB SCH ×2 (07:44→19:54)
--- NOTE | 2023-01-06 09:24 | XR ---
EXAMINATION TYPE: XR chest 1V portable DATE OF EXAM: 01/06/2023 COMPARISON: 01/05/2023 INDICATION: CHF TECHNIQUE: Single frontal view of the chest is obtained. FINDINGS: The heart size is prominent. The pulmonary vasculature is mildly prominent. Right lower lobe infiltrate is present. Correlate for atelectasis or pneumonia. Some minimal subsegme ntal atelectasis may be at the left base. IMPRESSION: 1. Small right and minimal left basilar infiltrates. Correlate for atelectasis and pneumonia. Finding s appear similar to comparison.
[2023-01-06] MEDS: ONDANSETRON 4 MG/2 ML VIAL IVP PRN (09:39)
[2023-01-06] MEDS: SODIUM CHLORIDE 0.9% 1,000 ML IV SCH ×3 (11:37→21:44)
[2023-01-06] MEDS: MAGNESIUM OXIDE 400 MG TAB PO SCH (11:43)
--- NOTE | 2023-01-06 11:46 | P.PN ---
Subjective Progress Note Date: 01/06/23 Principal diagnosis: 82-year-old female with choledocholithiasis, possible cholangitis Status post ERCP with sphincterotomy, release of 10 stones, planned cholecystectomy January 08 Patient resting quietly, notes some minor abdominal discomfort with radiation to the back, denies fever or chills, has noted persistent low-level cough Tolerating liquids, by mouth intake of solids minimal. Objective - Vital Signs Vital signs: Vital Signs Temp 98.7 F 01/06/23 07:41 Pulse 125 H 01/06/23 07:41 Resp 20 01/06/23 07:41 BP 120/83 01/06/23 07:41 Pulse Ox 92 L 01/06/23 07:41 FiO2 Intake & Output 01/05/23 01/06/23 01/06/23 18:59 06:59 18:59 Intake Total 457 Balance 457 Weight 48.988 kg 54.2 kg Intake: IV 10 Invasive Line 3 10 Oral 447 Other: Voiding Method Toilet Toilet Toilet # Voids 4 1 1 # Bowel Movements 1 - Constitutional General appearance: Present: mild distress - EENT Eyes: Present: PERRLA - Respiratory Respiratory: right: rhonchi (Nonlabored respirations) - Gastrointestinal General gastrointestinal: Present: soft Localized gastrointestinal: tender: diffuse (Mildly tender to deep palpation) - Neurologic Neurologic Comment(s): Alert and oriented 3, appropriate affect - Labs CBC & Chem 7: 01/05/23 09:17 01/05/23 09:17 Labs: Microbiology - Last 24 Hours (Table) 01/03/23 15:38 Blood Culture - Preliminary Blood 01/04/23 08:01 Blood Culture - Preliminary Blood - Imaging and Cardiology Chest x-ray: report reviewed (Small right lower lobe basilar infiltrate versus atelectasis) Assessment and Plan Assessment: -year-old female with choledocholithiasis, status post ERCP and sphincterotomy, awaiting cholecystectomy planned for 01/08/2023 A.m. labs pending at this time, chest x-ray demonstrates slight infiltrate right lower lobe, we'll order incentive spirometry Your medical and cardiology management, cholecystectomy planned for Time with Patient: Less than 30
[2023-01-06 12:21] LABS: ALT 51 U/L (4-34); AST 38 U/L (14-36); African American GFR (CKD) >90 (>60 ml/min/1.73 sqM); Albumin 2.8 g/dL (3.5-5.0); Alkaline Phosphatase 240 U/L (38-126); Anion Gap 8 mmol/L; Blood Urea Nitrogen 21 mg/dL (7-17); Calcium 8.7 mg/dL (8.4-10.2); Carbon Dioxide 22 mmol/L (22-30); Chloride 109 mmol/L (98-107); Glucose 98 mg/dL (74-99); Non-African American GFR(CKD) 84 (>60 ml/min/1.73 sqM); Potassium 3.7 mmol/L (3.5-5.1); Sodium 139 mmol/L (137-145); Total Bilirubin 0.7 mg/dL (0.2-1.3); Total Protein 5.2 g/dL (6.3-8.2)
[2023-01-06] MEDS: MULTIVITAMINS, THERA 1 EACH TAB PO SCH (13:06)
[2023-01-06] MEDS: FOLIC ACID 1 MG TAB PO SCH (13:06)
--- NOTE | 2023-01-06 14:09 | CT ---
EXAMINATION TYPE: CT chest wo con DATE OF EXAM: 01/06/2023 COMPARISON: 01/02/2023 ultrasound HISTORY: pneumonia CT DLP: 201.9 mGycm, Automated exposure control for dose reduction was used. CONTRAST: Performed injected with 0 mL of Isovue 300. TECHNIQUE: Axial images were obtained at 5 mm thick sections. Reconstructed images are reviewed on [facility] computer in the coronal plane. FINDINGS: Portion of the thyroid visualized is normal. There is a small to moderate right and small left pleural effusion. Some compressive atelectasis at t he bilateral lung bases. Some pulmonary fibrosis may be at the right apex. No enlarged mediastinal or hilar adenopathy is evident. The ascending aorta diameter at the level o f the main pulmonary artery is 3.9 cm. The main pulmonary artery diameter at the bifurcation is 3.3 cm. Coronary artery calcifications present. Limited CT sections are obtained through the upper abdomen. There is a large hypodensity which may be in the caudate lobe or posterior medial right lobe liver measuring 4.8 cm. This may be somewhat expa nsile. Consider metastasis. This however could correlate with limited. Be a complex cyst on recent ul trasound. Consider complex cyst or abscess within the differential as well. There is a cyst within th e anterior right lobe liver. Hiatal hernia is present. IMPRESSION: 1. Small to moderate right and small left pleural effusion with adjacent atelectasis. Underlying pneu monia may be present. 2 4.8 cm lesion within the posterior right lobe liver present on the ultrasound . Differential diagnosis should include complex cyst and abscess. Solid mass may be less likely withi n the differential. MRI can be performed if clinically indicated.
[2023-01-06] MEDS: IPRATROPIUM-ALBUTEROL 3 ML NEB INHALATION SCH ×2 (15:29→21:20)
[2023-01-06] MEDS: THIAMINE 100 MG TAB PO SCH (17:54)
[2023-01-06] MEDS: ACETAMINOPHEN TAB 325 MG TAB PO PRN (18:03)
--- NOTE | 2023-01-07 02:44 | PN ---
PROGRESS NOTE DATE OF SERVICE: 01/06/2023 SUBJECTIVE: This 82-year-old woman, who was admitted with abdominal pain, possible choledocholithiasis and cholelithiasis, possible cholangitis also. The patient also developing a right lower lobe pneumonia. The patient on broad spectrum IV antibiotics. ERCP has been done. Surgery is being planned on Sunday. No chest pain or palpitation. PAST MEDICAL HISTORY: Reviewed. REVIEW OF SYSTEMS: A 14-point review is negative except as mentioned earlier. CURRENT MEDICATIONS: Reviewed include cefepime doses and rest of medications noted. PHYSICAL EXAMINATION: VITAL SIGNS: Pulse is 89, blood pressure 121/70, respirations 20. HEENT: Conjunctivae are normal. NECK: No jugular venous distention. CARDIOVASCULAR: S1 and S2 muffled. RESPIRATORY: Breath sounds diminished at the bases. ABDOMEN: Soft and nontender. No mass. LEGS: No edema. NERVOUS SYSTEM: Nonfocal. LABS: CBC not available. Sodium 139. LFTs are improving. ASSESSMENT: 1. Abdominal pain with possible choledocholithiasis and cholelithiasis with nausea. 2. Fever, possible cholangitis. 3. Possible right lower lobe pneumonia. 4. Abnormal liver function tests. 5. Possible partial small bowel obstruction, improved. 6. Atrial fibrillation with fast ventricular rate. 7. Hyponatremia. 8. Anemia. 9. Premature ventricular contractions. 10.Multiple complex medical issues. RECOMMENDATIONS: Recommended to continue current medications, continue symptomatic treatment. Continue with IV antibiotics, cultures, add bronchodilators. CT scan of the chest and consult Pulmonary. Discussed with Infectious Disease. We will continue with cefepime and obtain cultures and hold off adding any more antibiotic at this point. Repeat cultures. Stable but prognosis is guarded. I had a detailed discussion with family. Further recommendations to follow. MMODL / IJN: [id number] /
[2023-01-07] MEDS: THIAMINE 100 MG TAB PO SCH ×2 (06:27→17:47)
[2023-01-07] MEDS: IPRATROPIUM-ALBUTEROL 3 ML NEB INHALATION SCH ×3 (07:46→21:17)
[2023-01-07] MEDS: CEFEPIME 2 GM in SODIUM CHLORIDE 0.9% 100 ML IVPB SCH ×2 (07:53→20:38)
[2023-01-07] MEDS: CYANOCOBALAMIN 500 MCG TAB PO SCH (07:54)
[2023-01-07] MEDS: METOPROLOL SUCCINATE (ER) 25 MG TAB.ER.24H PO SCH (07:54)
[2023-01-07] MEDS: PANTOPRAZOLE 40 MG/10 ML VIAL IVP SCH ×2 (07:54→20:39)
[2023-01-07] MEDS: CHOLECALCIFEROL 10 MCG (400 IU) TABLET PO SCH (07:54)
[2023-01-07] MEDS: ACETAMINOPHEN TAB 325 MG TAB PO PRN ×3 (10:08→20:45)
[2023-01-07] MEDS: MULTIVITAMINS, THERA 1 EACH TAB PO SCH (11:34)
[2023-01-07] MEDS: MAGNESIUM OXIDE 400 MG TAB PO SCH (11:34)
[2023-01-07] MEDS: FOLIC ACID 1 MG TAB PO SCH (11:34)
[2023-01-07] MEDS: SODIUM CHLORIDE 0.9% 1,000 ML IV SCH ×2 (11:35→16:40)
[2023-01-07 11:39] LABS: Basophils % (A) 1 %; Eosinophils # (A) 0.1 k/uL (0-0.7); Eosinophils % (A) 1 %; HCT 27.8 % (34.0-46.0); Hypochromasia Slight; Lymphocytes # (A) 0.5 k/uL (1.0-4.8); Lymphocytes % (A) 6 %; MCH 32.1 pg (25.0-35.0); MCHC 32.3 g/dL (31.0-37.0); MCV 99.3 fL (80.0-100.0); Mean Platelet Volume 8.7; Monocytes # (A) 0.7 k/uL (0-1.0); Monocytes % (A) 7 %; Neutrophils # (A) 7.4 k/uL (1.3-7.7); Neutrophils % (A) 84 %; Platelet Count 354 k/uL (150-450); RDW 12.8 % (11.5-15.5); WBC 8.8 k/uL (3.8-10.6)
[2023-01-07 12:16] LABS: ALT 49 U/L (4-34); AST 53 U/L (14-36); African American GFR (CKD) >90 (>60 ml/min/1.73 sqM); Albumin 2.5 g/dL (3.5-5.0); Alkaline Phosphatase 194 U/L (38-126); Anion Gap 9 mmol/L; Blood Urea Nitrogen 16 mg/dL (7-17); Calcium 8.4 mg/dL (8.4-10.2); Carbon Dioxide 20 mmol/L (22-30); Chloride 109 mmol/L (98-107); Glucose 91 mg/dL (74-99); Non-African American GFR(CKD) 88 (>60 ml/min/1.73 sqM); Potassium 3.5 mmol/L (3.5-5.1); Sodium 138 mmol/L (137-145); Total Bilirubin 0.6 mg/dL (0.2-1.3)
--- NOTE | 2023-01-07 12:21 | P.CNPUL ---
History of Present Illness Consult date: 01/07/23 Requesting physician: Ruba Mccormack Reason for consult: dyspnea, cough, hypoxemia, pneumonia, abnormal CXR/CT Chief complaint: Possible pneumonia. History of present illness: Pulmonary consult dated 01/07/2023. 82-year-old female admitted back on January 01, for abdominal pain. She also had an ileus, and nausea. The patient was found to have possible common bile duct stones, and underwent an ERCP on January 04, with sphincterotomy, and balloon stone extraction. When the patient was first admitted, her chest x-ray was normal. More recently, her chest x-ray showing an infiltrate in the right lower lobe. She's currently on 2 L of oxygen. She's getting saline at 20 mL an hour. She is currently on cefepime. She doesn't do to some chest congestion, cough, and mild shortness of breath. Laboratory data includes a white count 8.8, hemoglobin 9, hematocrit 27.8, and a platelet count 354,000. The patient's pro-calcitonin level, was elevated at 0.53. TSH is normal. Blood cultures are negative. Chest x-ray, and computed tomography scan are consistent with infiltrate, right lower lobe. Review of Systems REVIEW OF SYSTEMS: CONSTITUTIONAL: [Negative.] NEUROLOGIC: [ Negative.] HEENT: [ Negative.] CARDIAC: [Negative.] PULMONARY: Chest congestion, cough, shortness of breath. GI: Abdominal pain, nausea, ileus. : [Negative.] RHEUMATOLOGIC: [ Negative.] IMMUNOLOGIC: [ Negative.] ENDOCRINE: [Negative. ] DERMATOLOGIC: [Negative.] Past Medical History Past Medical History: Atrial Fibrillation Additional Past Medical History / Comment(s): PVC. History of Any Multi-Drug Resistant Organisms: None Reported Past Surgical History: Hysterectomy, Tonsillectomy Additional Past Surgical History / Comment(s): CArdiac Cath, colonoscopy,, arthoscopy R shoulder, L cataract impalnt Past Anesthesia/Blood Transfusion Reactions: No Reported Reaction Past Psychological History: No Psychological Hx Reported Smoking Status: Former smoker Past Alcohol Use History: None Reported Past Drug Use History: None Reported Medications and Allergies Home Medications Medication Instructions Recorded Confirmed Type Cyanocobalamin [Vitamin B-12] 500 mcg PO DAILY 12/09/14 01/02/23 History Cholecalciferol [Vitamin D3 (10 10 mcg PO DAILY 01/02/23 01/02/23 History Mcg = 400 Iu)] Galantamine HBr [Razadyne ER] 16 mg PO DAILY 01/02/23 01/02/23 History Ginkgo Biloba [place] Extract [Ginkgo 40 mg PO DAILY@1200 01/02/23 01/02/23 History Biloba] Magnesium 250 mg PO DAILY@1200 01/02/23 01/02/23 History Metoprolol Succinate (ER) [Toprol 25 mg PO DAILY 01/02/23 01/02/23 History Xl] Zinc Gluconate [Zinc] 50 mg PO DAILY 01/02/23 01/02/23 History Allergies Allergy/AdvReac Type Severity Reaction Status Date / Time diclofenac sodium Allergy Rash/Hives Verified 01/02/23 07:38 [From Voltaren] Penicillins Allergy Rash/Hives Verified 01/02/23 07:38 Physical Exam Osteopathic Statement: *. No significant issues noted on an osteopathic structural exam other than those noted in the History and Physical/Consult. Vitals: Vital Signs Temp Pulse Pulse Pulse Resp BP Pulse Ox 01/07/23 11:46 96 01/07/23 11:34 94 01/07/23 11:32 98.1 F 91 16 114/74 94 L 01/07/23 08:01 88 01/07/23 07:49 87 01/07/23 07:47 98.5 F 86 16 148/85 94 L 01/07/23 04:00 98.4 F 82 16 132/76 97 01/06/23 23:54 98 F 80 16 118/76 96 01/06/23 20:00 98.4 F 92 16 107/65 96 01/06/23 15:44 97.9 F 91 20 123/72 93 L 01/06/23 15:43 92 01/06/23 15:29 90 97 Intake and Output 01/06/23 01/07/23 01/07/23 22:59 06:59 14:59 Intake Total 0 Output Total 1 Balance -1 Intake: Oral 0 Output: Stool 1 Other: Voiding Method Toilet Toilet Toilet # Voids 2 1 # Bowel Movements 1 No acute distress, oriented 3. Currently on 2 L of oxygen. Saturations are 94%. No overt respiratory distress. HEENT examination is grossly unremarkable. Mucous membranes are moist. No oral lesions. Neck supple. Full range of motion. No adenopathy thyromegaly or neck vein distention. Cardiovascular examination reveals regular rhythm rate. S1-S2 normal. No S3 or S4. No discernible murmur noted. Heart rate 96 bpm. Lungs reveal mild scattered rhonchi. No wheezes or crackles. Breath sounds are equal. Abdomen soft bowel sounds are heard. No masses or tenderness. Extremities are intact. No cyanosis clubbing or edema. Skin is without rash or lesion. Neurologic examination is brief but nonfocal. Results - Laboratory Findings CBC and BMP: 01/07/23 10:56 01/06/23 11:04 PT/INR, D-dimer PT 11.3 sec (10.0-12.5) 01/04/23 08:01 INR 1.0 (<1.2) 01/04/23 08:01 Abnormal lab findings: Abnormal Labs 01/01/23 01/01/23 01/02/23 20:34 20:34 06:30 RBC 3.63 L 3.34 L Hgb 10.8 L Hct 32.8 L MCV MCHC Neutrophils # 8.6 H Lymphocytes # 0.8 L 0.7 L Monocytes # Eosinophils # APTT Sodium 133 L Chloride Carbon Dioxide BUN 19 H Glucose 125 H Calcium Total Bilirubin 2.8 H AST 366 H ALT 152 H Alkaline Phosphatase 282 H Total Protein Albumin Procalcitonin Urine Protein Urine Bilirubin Urine RBC Urine WBC Urine Mucus 01/02/23 01/02/23 01/03/23 06:30 16:42 05:07 RBC 2.81 L Hgb 8.6 L Hct 27.0 L MCV MCHC 31.9 L Neutrophils # Lymphocytes # 0.46 L Monocytes # 1.23 H Eosinophils # 0.01 L APTT Sodium 134 L Chloride Carbon Dioxide BUN Glucose 100 H Calcium Total Bilirubin 3.8 H AST 332 H ALT 194 H Alkaline Phosphatase 319 H Total Protein 5.5 L Albumin 3.0 L Procalcitonin Urine Protein 1+ H Urine Bilirubin 2+ H Urine RBC 17 H Urine WBC 9 H Urine Mucus Occasional H 01/03/23 01/03/23 01/04/23 05:07 19:38 08:01 RBC 2.84 L Hgb 9.1 L D Hct 28.6 L MCV 100.5 H MCHC Neutrophils # Lymphocytes # 0.5 L Monocytes # Eosinophils # APTT 47.3 H Sodium Chloride Carbon Dioxide 20.7 L BUN Glucose Calcium Total Bilirubin 1.6 H AST 96 H ALT 114 H Alkaline Phosphatase 288 H Total Protein 4.6 L Albumin 2.9 L Procalcitonin Urine Protein Urine Bilirubin Urine RBC Urine WBC Urine Mucus 01/04/23 01/05/23 01/05/23 08:01 09:17 09:17 RBC 3.04 L Hgb 9.8 L Hct 30.6 L MCV 100.8 H MCHC Neutrophils # 8.5 H Lymphocytes # 0.6 L Monocytes # Eosinophils # APTT Sodium Chloride 108 H 113 H Carbon Dioxide 17 L 14 L BUN 20 H Glucose Calcium 8.3 L Total Bilirubin AST 47 H ALT 77 H 63 H Alkaline Phosphatase 233 H 253 H Total Protein 4.8 L 5.2 L Albumin 2.5 L 2.8 L Procalcitonin Urine Protein Urine Bilirubin Urine RBC Urine WBC Urine Mucus 01/06/23 01/07/23 01/07/23 11:04 01:33 10:56 RBC 2.80 L Hgb 9.0 L Hct 27.8 L MCV MCHC Neutrophils # Lymphocytes # 0.5 L Monocytes # Eosinophils # APTT Sodium Chloride 109 H Carbon Dioxide BUN 21 H Glucose Calcium Total Bilirubin AST 38 H ALT 51 H Alkaline Phosphatase 240 H Total Protein 5.2 L Albumin 2.8 L Procalcitonin 0.53 H Urine Protein Urine Bilirubin Urine RBC Urine WBC Urine Mucus - Diagnostic Findings Chest x-ray: image reviewed CT scan - chest: image reviewed Assessment and Plan Assessment: Right lower lobe pneumonia, hospital acquired. Recent ERCP, for common bile duct obstruction, status post sphincterotomy, and balloon stone extraction, 01/04/2023. History of atrial fibrillation. Plan: Plan dated 01/07/2023. The patient is seen today in room 376. She appears relatively comfortable on 2 L of oxygen. She's getting saline at 20 mL an hour. Her pro-calcitonin level was elevated. The patient's chest x-ray, and CAT scan are consistent with a right lower lobe infiltrate. Her admission chest x-ray was normal. She continues on cefepime, and breathing treatments. She had an ERCP done on January 04. Her initial complaints or abdominal pain, and nausea. Currently, she is having a bit of chest congestion, off, and mild shortness of breath. We will continue to follow and make recommendations along the way. Time with Patient: Greater than 30
[2023-01-07 12:40] LABS: C Reactive Protein 19.9 mg/dL (<1.0)
--- NOTE | 2023-01-07 12:54 | XR ---
EXAMINATION TYPE: XR chest 1V portable DATE OF EXAM: 01/07/2023 COMPARISON: 01/06/2023 INDICATION: Pneumonia right side TECHNIQUE: Single frontal view of the chest is obtained. FINDINGS: The heart size is normal. The pulmonary vasculature is prominent. Right lower lobe infiltrate is present. Small right and minimal left pleural effusions are present. IMPRESSION: 1. Slight increase in right lower lobe infiltrate. Correlate for pneumonia. 2. Small right and minimal left pleural effusion remaining present.
--- NOTE | 2023-01-07 14:14 | PN ---
PROGRESS NOTE DATE OF SERVICE: 01/07/2023 SUBJECTIVE: This is an 82-year-old woman, who was admitted with abdominal pain with choledocholithiasis and cholelithiasis, scheduled for surgery tomorrow. Chest CT scan showed mainly pleural effusions. The patient is being closely monitored. No chest pain. No palpitation. The patient also had right lower lobe pneumonia. PHYSICAL EXAMINATION: VITAL SIGNS: Pulse is 91, blood pressure 140/70, respirations 16. CHEST: Few scattered rhonchi and crackles. ABDOMEN: Soft. NERVOUS SYSTEM: No focal deficits. LABORATORY DATA: Reviewed. Procalcitonin is 0.53. White count is 8.8. ASSESSMENT: 1. Abdominal pain with possible choledocholithiasis and cholelithiasis with nausea. 2. Fever, possible cholangitis. 3. Possible right lower lobe pneumonia, consider hospital-acquired pneumonia. 4. Abnormal liver function tests. 5. Possible partial small bowel obstruction, improved. 6. Atrial fibrillation with fast ventricular rate. 7. Hyponatremia. 8. Anemia. 9. Premature ventricular contractions. 10.Multiple complex medical issues. RECOMMENDATIONS: Recommend to continue current medications. Continue symptomatic treatment. Continue with antibiotics. Currently, the patient is on cefepime. The patient is stable. Closely follow with Cardiology and possible surgery tomorrow. The cultures are negative so far. MMODL / IJN: [id number] /
--- NOTE | 2023-01-07 14:18 | P.PN ---
Subjective Progress Note Date: 01/06/23 Principal diagnosis: Reason for follow-up is fever and cholangitis Patient is a 82-year-old female with a past medical history significant for atrial fibrillation patient presenting to the hospital concerning for A-fib , patient also have elevated liver enzymes CT suggestive of CBD stone and the patient subsequently spiked a fever concerning for cholangitis patient is status post ERCP completed on 01/04/2023 On today's evaluation that is 01/06/2023 the patient continues to be afebrile, the patient is breathing comfortably on room air and denies any shortness of b reath, the patient denies chest pain did have occasional cough with minimal sputum production, patient denies abdominal pain, no nausea/vomiting or diarrhea. Patient did have a white count of 10.1, creatinine 0.74 as of 01/05/2023, blood cultures so far negative Objective - Vital Signs Vital signs: Vital Signs Temp 98.3 F 01/06/23 11:40 Pulse 89 01/06/23 11:40 Resp 20 01/06/23 11:40 BP 121/79 01/06/23 11:40 Pulse Ox 92 L 01/06/23 11:40 FiO2 Intake & Output 01/05/23 01/06/23 01/06/23 18:59 06:59 18:59 Intake Total 457 360 Balance 457 360 Weight 48.988 kg 54.2 kg Intake: IV 10 Invasive Line 3 10 Oral 447 360 Other: Voiding Method Toilet Toilet Toilet # Voids 4 1 1 # Bowel Movements 1 - Exam GENERAL DESCRIPTION: An elderly female lying in bed in no distress RESPIRATORY SYSTEM: Unlabored breathing , clear to auscultation anteriorly HEART: S1 S2 regular rate and rhythm , ABDOMEN: Soft , no tenderness EXTREMITIES: No edema feet - Labs CBC & Chem 7: 01/07/23 10:56 01/07/23 10:56 Labs: Abnormal Lab Results - Last 24 Hours (Table) 01/06/23 Range/Units 11:04 Chloride 109 H (98-107) mmol/L BUN 21 H (7-17) mg/dL AST 38 H (14-36) U/L ALT 51 H (4-34) U/L Alkaline Phosphatase 240 H (38-126) U/L Total Protein 5.2 L (6.3-8.2) g/dL Albumin 2.8 L (3.5-5.0) g/dL Microbiology - Last 24 Hours (Table) 01/03/23 15:38 Blood Culture - Preliminary Blood 01/04/23 08:01 Blood Culture - Preliminary Blood Assessment and Plan (1) Cholangitis Current Visit: Yes Status: Acute Code(s): K83.09 - OTHER CHOLANGITIS SNOMED Code(s): 11575917 (2) Choledocholithiasis Current Visit: Yes Status: Acute Code(s): K80.50 - CALCULUS OF BILE DUCT W/O CHOLANGITIS OR CHOLECYST W/O OBST SNOMED Code(s): 928094128 Plan: 1patient presented to the hospital with sepsis in this patient who did have a fever tachycardia elevated liver enzymes also likely cholangitis with evidence of dilated CBD and possible stone likely from enteric gram-negative pathogen. 2patient with a penicillin allergy that would limit the number of antibiotic safety use reaction was rash and has tolerated Keflex without any problem. 3patient is afebrile white count is normal, patient to continue with cefepime 2 g every 8 hours and monitor clinical course closely 4-patient with a mild cough more likely atelectasis clinically not behaving as pneumonia, patient had been advised incentive spirometry and will check a procalcitonin Dictation was produced using [employer] dictation software. please excuse any grammatical, word or spelling errors. Time with Patient: Less than 30
--- NOTE | 2023-01-07 14:20 | P.PN ---
Subjective Progress Note Date: 01/07/23 Principal diagnosis: Reason for follow-up is fever and cholangitis Patient is a 82-year-old female with a past medical history significant for atrial fibrillation patient presenting to the hospital concerning for A-fib , patient also have elevated liver enzymes CT suggestive of CBD stone and the patient subsequently spiked a fever concerning for cholangitis patient is status post ERCP completed on 01/04/2023 On today's evaluation that is 01/07/2023 the patient denies any fever or any chills, the patient denies shortness of breath chest pain she did have a mild cough minimal sputum production, the patient nausea/vomiting or diarrhea and no abdominal pain. Patient did have a white count of 8.8, creatinine 0.57, procalcitonin is 0.53, blood cultures so far negative Objective - Vital Signs Vital signs: Vital Signs Temp 98.5 F 01/07/23 07:47 Pulse 88 01/07/23 08:01 Resp 16 01/07/23 07:47 BP 148/85 01/07/23 07:47 Pulse Ox 94 L 01/07/23 07:47 FiO2 Intake & Output 01/06/23 01/07/23 01/07/23 18:59 06:59 18:59 Intake Total 360 0 Output Total 1 Balance 360 -1 Intake: Oral 360 0 Output: Stool 1 Other: Voiding Method Toilet Toilet Toilet # Voids 2 1 # Bowel Movements 1 1 - Exam GENERAL DESCRIPTION: An elderly female lying in bed in no distress RESPIRATORY SYSTEM: Unlabored breathing , decreased breath sound at the bases HEART: S1 S2 regular rate and rhythm , ABDOMEN: Soft , no tenderness EXTREMITIES: No edema feet - Labs CBC & Chem 7: 01/07/23 10:56 01/07/23 10:56 Labs: Abnormal Lab Results - Last 24 Hours (Table) 01/06/23 01/07/23 Range/Units 11:04 01:33 Chloride 109 H (98-107) mmol/L BUN 21 H (7-17) mg/dL AST 38 H (14-36) U/L ALT 51 H (4-34) U/L Alkaline Phosphatase 240 H (38-126) U/L Total Protein 5.2 L (6.3-8.2) g/dL Albumin 2.8 L (3.5-5.0) g/dL Procalcitonin 0.53 H (0.02-0.09) ng/mL Microbiology - Last 24 Hours (Table) 01/03/23 15:38 Blood Culture - Preliminary Blood 01/04/23 08:01 Blood Culture - Preliminary Blood Assessment and Plan (1) Cholangitis Current Visit: Yes Status: Acute Code(s): K83.09 - OTHER CHOLANGITIS SNOMED Code(s): 00095796 (2) Choledocholithiasis Current Visit: Yes Status: Acute Code(s): K80.50 - CALCULUS OF BILE DUCT W/O CHOLANGITIS OR CHOLECYST W/O OBST SNOMED Code(s): 303406720 Plan: 1patient presented to the hospital with sepsis in this patient who did have a fever tachycardia elevated liver enzymes also likely cholangitis with evidence of dilated CBD and possible stone likely from enteric gram-negative pathogen. 2patient with a penicillin allergy that would limit the number of antibiotic safety use reaction was rash and has tolerated Keflex without any problem. 3patient with a mild cough more likely atelectasis clinically not behaving as pneumonia, patient had been advised incentive spirometry , try to obtain sputum and continued the patient on cefepime Multiple family members at the bedside questions were answered Dictation was produced using [employer] dictation software. please excuse any grammatical, word or spelling errors. Time with Patient: Less than 30
--- NOTE | 2023-01-07 19:54 | P.PN ---
Subjective Progress Note Date: 01/07/23 Denies abdominal pain. She is s/p ERCP for CBD stones. Recommend lap dayday while inpatient. Objective - Vital Signs Vital signs: Vital Signs Temp 98.2 F 01/07/23 15:07 Pulse 91 01/07/23 15:07 Resp 16 01/07/23 15:07 BP 124/77 01/07/23 15:07 Pulse Ox 94 L 01/07/23 15:07 FiO2 Intake & Output 01/07/23 01/07/23 01/08/23 06:59 18:59 06:59 Intake Total 540 Output Total 1 Balance 539 Intake: Oral 540 Output: Stool 1 Other: Voiding Method Toilet Toilet # Voids 1 1 # Bowel Movements 1 - Labs CBC & Chem 7: 01/07/23 10:56 01/07/23 10:56 Labs: Abnormal Lab Results - Last 24 Hours (Table) 01/07/23 01/07/23 01/07/23 Range/Units 01:33 10:56 10:56 RBC 2.80 L (3.80-5.40) m/uL Hgb 9.0 L (11.4-16.0) gm/dL Hct 27.8 L (34.0-46.0) % Lymphocytes # 0.5 L (1.0-4.8) k/uL Chloride 109 H (98-107) mmol/L Carbon Dioxide 20 L (22-30) mmol/L AST 53 H (14-36) U/L ALT 49 H (4-34) U/L Alkaline Phosphatase 194 H (38-126) U/L C-Reactive Protein 19.9 H (<1.0) mg/dL Total Protein 5.0 L (6.3-8.2) g/dL Albumin 2.5 L (3.5-5.0) g/dL Procalcitonin 0.53 H (0.02-0.09) ng/mL Microbiology - Last 24 Hours (Table) 01/04/23 08:01 Blood Culture - Preliminary Blood 01/03/23 15:38 Blood Culture - Preliminary Blood
[2023-01-08] MEDS: SODIUM CHLORIDE 0.9% 1,000 ML IV SCH ×3 (02:49→20:22)
[2023-01-08] MEDS: ACETAMINOPHEN TAB 325 MG TAB PO PRN (04:06)
[2023-01-08] MEDS: ONDANSETRON 4 MG/2 ML VIAL IVP PRN (04:06)
[2023-01-08] MEDS: CEFEPIME 2 GM in SODIUM CHLORIDE 0.9% 100 ML IVPB SCH ×3 (04:07→20:22)
[2023-01-08] MEDS: THIAMINE 100 MG TAB PO SCH ×2 (06:08→17:14)
[2023-01-08 06:55] LABS: Basophils # (A) 0.1 k/uL (0-0.2); Basophils % (A) 1 %; Eosinophils # (A) 0.2 k/uL (0-0.7); Eosinophils % (A) 2 %; HCT 28.2 % (34.0-46.0); Lymphocytes # (A) 0.5 k/uL (1.0-4.8); Lymphocytes % (A) 5 %; MCH 31.6 pg (25.0-35.0); Mean Platelet Volume 7.9; Monocytes # (A) 0.6 k/uL (0-1.0); Monocytes % (A) 6 %; Neutrophils # (A) 8.5 k/uL (1.3-7.7); Neutrophils % (A) 85 %; Platelet Count 364 k/uL (150-450); RBC 2.84 m/uL (3.80-5.40); RDW 12.9 % (11.5-15.5); WBC 10.1 k/uL (3.8-10.6)
[2023-01-08] MEDS: IPRATROPIUM-ALBUTEROL 3 ML NEB INHALATION SCH ×3 (07:39→21:01)
[2023-01-08] MEDS: PANTOPRAZOLE 40 MG/10 ML VIAL IVP SCH ×2 (08:49→20:21)
[2023-01-08] MEDS: METOPROLOL SUCCINATE (ER) 25 MG TAB.ER.24H PO SCH (08:50)
[2023-01-08 09:05] LABS: ALT 48 U/L (4-34); AST 43 U/L (14-36); African American GFR (CKD) >90 (>60 ml/min/1.73 sqM); Albumin 2.6 g/dL (3.5-5.0); Alkaline Phosphatase 191 U/L (38-126); Anion Gap 10 mmol/L; Blood Urea Nitrogen 12 mg/dL (7-17); Calcium 8.5 mg/dL (8.4-10.2); Carbon Dioxide 22 mmol/L (22-30); Chloride 107 mmol/L (98-107); Glucose 88 mg/dL (74-99); Non-African American GFR(CKD) >90 (>60 ml/min/1.73 sqM); Potassium 3.5 mmol/L (3.5-5.1); Sodium 139 mmol/L (137-145); Total Bilirubin 0.7 mg/dL (0.2-1.3); Total Protein 5.2 g/dL (6.3-8.2)
--- NOTE | 2023-01-08 11:19 | P.PN ---
Subjective Progress Note Date: 01/08/23 82-year-old female admitted back on January 01, for abdominal pain. She also had an ileus, and nausea. The patient was found to have possible common bile duct stones, and underwent an ERCP on January 04, with sphincterotomy, and balloon stone extraction. When the patient was first admitted, her chest x-ray was normal. More recently, her chest x-ray showing an infiltrate in the right lower lobe. She's currently on 2 L of oxygen. She's getting saline at 20 mL an hour. She is currently on cefepime. She doesn't do to some chest congestion, cough, and mild shortness of breath. Laboratory data includes a white count 8.8, hemoglobin 9, hematocrit 27.8, and a platelet count 354,000. The patient's pro-calcitonin level, was elevated at 0.53. TSH is normal. Blood cultures are negative. Chest x-ray, and computed tomography scan are consistent with infiltrate, right lower lobe. On today's evaluation of 01/08/2023, the patient is nothing by mouth and the patient is awaiting laparoscopic cholecystectomy to be done. LFTs are also improving. The patient has no specific complaints. I reviewed the CT scan of the chest that was on time of admission. The patient's bilateral pleural effus ion slightly worse on the right and the patient has some atelectatic change in the right lung base. She is currently on oxygen 2 L/m nasal cannula. She is denying any significant complaints. Objective - Vital Signs Vital signs: Vital Signs Temp 97.7 F 01/08/23 04:00 Pulse 90 01/08/23 07:51 Resp 16 01/08/23 04:00 BP 155/94 01/08/23 04:00 Pulse Ox 96 01/08/23 07:41 FiO2 Intake & Output 01/07/23 01/08/23 01/08/23 18:59 06:59 18:59 Intake Total 540 Output Total 1 Balance 539 Intake: Oral 540 Output: Stool 1 Other: Voiding Method Toilet Toilet # Voids 1 1 # Bowel Movements 1 - Exam No acute distress, oriented 3. Currently on 2 L of oxygen. Saturations are 94%. No overt respiratory distress. HEENT examination is grossly unremarkable. Mucous membranes are moist. No oral lesions. Neck supple. Full range of motion. No adenopathy thyromegaly or neck vein distention. Cardiovascular examination reveals regular rhythm rate. S1-S2 normal. No S3 or S4. No discernible murmur noted. Lungs reveal mild scattered rhonchi. No wheezes or crackles. Breath sounds are equal. Abdomen soft bowel sounds are heard. No masses or tenderness. Extremities are intact. No cyanosis clubbing or edema. Skin is without rash or lesion. Neurologic examination is brief but nonfocal. - Labs CBC & Chem 7: 01/08/23 06:41 01/08/23 06:41 Labs: Abnormal Lab Results - Last 24 Hours (Table) 01/07/23 01/07/23 01/07/23 Range/Units 10:56 10:56 10:56 RBC 2.80 L (3.80-5.40) m/uL Hgb 9.0 L (11.4-16.0) gm/dL Hct 27.8 L (34.0-46.0) % Neutrophils # (1.3-7.7) k/uL Lymphocytes # 0.5 L (1.0-4.8) k/uL Chloride 109 H (98-107) mmol/L Carbon Dioxide 20 L (22-30) mmol/L AST 53 H (14-36) U/L ALT 49 H (4-34) U/L Alkaline Phosphatase 194 H (38-126) U/L C-Reactive Protein 19.9 H (<1.0) mg/dL Total Protein 5.0 L (6.3-8.2) g/dL Albumin 2.5 L (3.5-5.0) g/dL Procalcitonin 0.40 H (0.02-0.09) ng/mL 01/08/23 01/08/23 Range/Units 06:41 06:41 RBC 2.84 L (3.80-5.40) m/uL Hgb 9.0 L (11.4-16.0) gm/dL Hct 28.2 L (34.0-46.0) % Neutrophils # 8.5 H (1.3-7.7) k/uL Lymphocytes # 0.5 L (1.0-4.8) k/uL Chloride (98-107) mmol/L Carbon Dioxide (22-30) mmol/L AST 43 H (14-36) U/L ALT 48 H (4-34) U/L Alkaline Phosphatase 191 H (38-126) U/L C-Reactive Protein (<1.0) mg/dL Total Protein 5.2 L (6.3-8.2) g/dL Albumin 2.6 L (3.5-5.0) g/dL Procalcitonin (0.02-0.09) ng/mL Microbiology - Last 24 Hours (Table) 01/06/23 18:52 Blood Culture - Preliminary Blood 01/04/23 08:01 Blood Culture - Preliminary Blood Assessment and Plan Plan: Bilateral pleural effusion right more than left, consider parapneumonic effusion versus reactive. Right lower lobe pneumonia, hospital acquired. This is clinically suspected and the patient is currently on antibiotics with IV cefepime Recent ERCP, for common bile duct obstruction, status post sphincterotomy, and balloon stone extraction, 01/04/2023. History of atrial fibrillation. Plan: monitor the pleural effusions Thoracentesis of needed Laparoscopic cholecystectomy today Continue IV cefepime Encourage use of incentive spirometer Increase mobility We'll continue to follow
[2023-01-08] MEDS: CYANOCOBALAMIN 500 MCG TAB PO SCH (12:31)
[2023-01-08] MEDS: CHOLECALCIFEROL 10 MCG (400 IU) TABLET PO SCH (12:31)
[2023-01-08] MEDS: FOLIC ACID 1 MG TAB PO SCH (12:31)
[2023-01-08] MEDS: MULTIVITAMINS, THERA 1 EACH TAB PO SCH (12:32)
[2023-01-08] MEDS: MAGNESIUM OXIDE 400 MG TAB PO SCH (12:32)
--- NOTE | 2023-01-08 14:29 | P.PN ---
Subjective Progress Note Date: 01/08/23 Patient seen at 9 AM today CHIEF COMPLAINT: abdominal pain HISTORY OF PRESENT ILLNESS: Patient hospitalized with choledocholithiasis. She status post ERCP with removal of 10 stones. She reports some mild right upper quadrant pain. Denies any nausea or vomiting. Afebrile. Tachycardic. WBC 10.1 hgb 9.0 platelets 364 sodium 139 potassium 3.5 creatinine 0.5 to total bili 0.7 AST 43 ALT 48 alk phos 191. LFTs trending down. Followed by pulmonary service regarding bilateral pleural effusions. Afib RVR patient being seen by cardiology. PHYSICAL EXAM: VITAL SIGNS: Reviewed. GENERAL: Well-developed in no acute distress. ABDOMEN: Soft. Nondistended. Mild tenderness to palpation right upper qu adrant NEUROLOGIC: Alert and oriented. Cranial nerves II through XII grossly intact. ASSESSMENT: 1. Choledocholithiasis status post ERCP with removal 10 stones 2. Distended gallbladder with cholelithiasis noted on abdominal ultrasound 3. Possible cholangitis 4. Atrial fibrillation followed by cardiology PLAN: -Patient scheduled for laparoscopic cholecystectomy today with Dr. Lance -Keep patient NPO -Continue antibiotics Physician Ends Breakage Clerk note has been reviewed by physician. Signing provider agrees with the documented findings, assessment, and plan of care. Objective - Vital Signs Vital signs: Vital Signs Temp 97.7 F 01/08/23 04:00 Pulse 90 01/08/23 07:51 Resp 16 01/08/23 04:00 BP 155/94 01/08/23 04:00 Pulse Ox 96 01/08/23 07:41 FiO2 Intake & Output 01/07/23 01/08/23 01/08/23 18:59 06:59 18:59 Intake Total 540 Output Total 1 Balance 539 Intake: Oral 540 Output: Stool 1 Other: Voiding Method Toilet Toilet # Voids 1 1 # Bowel Movements 1 - Labs CBC & Chem 7: 01/08/23 06:41 01/08/23 06:41 Labs: Abnormal Lab Results - Last 24 Hours (Table) 01/07/23 01/07/23 01/07/23 Range/Units 10:56 10:56 10:56 RBC 2.80 L (3.80-5.40) m/uL Hgb 9.0 L (11.4-16.0) gm/dL Hct 27.8 L (34.0-46.0) % Neutrophils # (1.3-7.7) k/uL Lymphocytes # 0.5 L (1.0-4.8) k/uL Chloride 109 H (98-107) mmol/L Carbon Dioxide 20 L (22-30) mmol/L AST 53 H (14-36) U/L ALT 49 H (4-34) U/L Alkaline Phosphatase 194 H (38-126) U/L C-Reactive Protein 19.9 H (<1.0) mg/dL Total Protein 5.0 L (6.3-8.2) g/dL Albumin 2.5 L (3.5-5.0) g/dL Procalcitonin 0.40 H (0.02-0.09) ng/mL 01/08/23 01/08/23 Range/Units 06:41 06:41 RBC 2.84 L (3.80-5.40) m/uL Hgb 9.0 L (11.4-16.0) gm/dL Hct 28.2 L (34.0-46.0) % Neutrophils # 8.5 H (1.3-7.7) k/uL Lymphocytes # 0.5 L (1.0-4.8) k/uL Chloride (98-107) mmol/L Carbon Dioxide (22-30) mmol/L AST 43 H (14-36) U/L ALT 48 H (4-34) U/L Alkaline Phosphatase 191 H (38-126) U/L C-Reactive Protein (<1.0) mg/dL Total Protein 5.2 L (6.3-8.2) g/dL Albumin 2.6 L (3.5-5.0) g/dL Procalcitonin (0.02-0.09) ng/mL Microbiology - Last 24 Hours (Table) 01/06/23 18:52 Blood Culture - Preliminary Blood 01/04/23 08:01 Blood Culture - Preliminary Blood
[2023-01-08] MEDS ORDERED: DILTIAZEM DRIP BOLUS FROM BAG 1 MG SOLN IV ONE (15:35)
[2023-01-08] MEDS: DILTIAZEM 125 MG in SODIUM CHLORIDE 0.9% 100 ML IV SCH (16:02)
--- NOTE | 2023-01-08 16:14 | PN ---
PROGRESS NOTE DATE OF SERVICE: 01/08/2023 SUBJECTIVE: This is an 82-year-old woman, who was admitted with cholelithiasis and choledocholithiasis, being closely monitored. The patient had atrial fibrillation with fast ventricular rate. Surgery was being planned originally today. No chest pain. No palpitation. PHYSICAL EXAMINATION: VITAL SIGNS: Pulse is 130s, irregular. Blood pressure 139/87. Respirations 16. CHEST: No rhonchi. No crackles. CARDIOVASCULAR: S1 and S2, irregular, tachycardic. ABDOMEN: Soft. LABORATORY DATA: Reviewed. ASSESSMENT: 1. Abdominal pain with possible choledocholithiasis and cholelithiasis with nausea. 2. Fever, possible cholangitis, improved. 3. Possible right lower lobe pneumonia. Consider hospital-acquired pneumonia. Improving. 4. Atrial fibrillation with fast ventricular rate. 5. Abnormal liver function tests. 6. Possible partial small bowel obstruction, improved. 7. Hyponatremia. 8. Anemia. 9. Premature ventricular contractions. 10.Multiple complex medical issues. RECOMMENDATIONS: Recommend to continue current medical management. Continue symptomatic treatment. Otherwise, closely follow with Cardiology and Surgery. Repeat labs. Further recommendations to follow. Prognosis is guarded. The patient is cleared for surgery once atrial fibrillation is controlled. Recommend [place]. MMCORBYL / LEN: [id number] /
[2023-01-09] MEDS: DILTIAZEM 125 MG in SODIUM CHLORIDE 0.9% 100 ML IV SCH (04:51)
[2023-01-09] MEDS: CEFEPIME 2 GM in SODIUM CHLORIDE 0.9% 100 ML IVPB SCH ×3 (04:51→20:11)
[2023-01-09] MEDS: SODIUM CHLORIDE 0.9% 1,000 ML IV SCH ×2 (04:52→11:22)
[2023-01-09] MEDS: THIAMINE 100 MG TAB PO SCH ×2 (06:36→20:09)
[2023-01-09] MEDS: IPRATROPIUM-ALBUTEROL 3 ML NEB INHALATION SCH ×3 (08:17→21:53)
--- NOTE | 2023-01-09 08:29 | XR ---
EXAMINATION TYPE: XR chest 2V DATE OF EXAM: 01/09/2023 COMPARISON: 01/08/2020, CT scan 01/24/2023 TECHNIQUE: PA and lateral views submitted. HISTORY: Abnormal x-ray FINDINGS: Bilateral consolidation and pleural effusion is stable. No overt failure or pneumothorax. Biapical pl eural thickening. There is arthropathy of the shoulders, diffuse osteopenia and degenerative changes spine. Calcification left retrocardiac region stable. IMPRESSION: 1. Bilateral consolidation and small pleural effusion. 2. Prominent upper mediastinum particularly in the left. 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
[2023-01-09 09:34] LABS: ALT 41 U/L (4-34); AST 33 U/L (14-36); African American GFR (CKD) >90 (>60 ml/min/1.73 sqM); Alkaline Phosphatase 226 U/L (38-126); Anion Gap 16 mmol/L; Blood Urea Nitrogen 13 mg/dL (7-17); Calcium 8.9 mg/dL (8.4-10.2); Carbon Dioxide 19 mmol/L (22-30); Chloride 104 mmol/L (98-107); Glucose 78 mg/dL (74-99); Non-African American GFR(CKD) 87 (>60 ml/min/1.73 sqM); Potassium 3.4 mmol/L (3.5-5.1); Sodium 139 mmol/L (137-145); Total Bilirubin 0.8 mg/dL (0.2-1.3); Total Protein 5.8 g/dL (6.3-8.2)
[2023-01-09 09:42] LABS: Basophils % (A) 0 %; Eosinophils # (A) 0.2 k/uL (0-0.7); Eosinophils % (A) 1 %; HCT 32.2 % (34.0-46.0); HGB 10.1 gm/dL (11.4-16.0); Hypochromasia Slight; Lymphocytes # (A) 1.4 k/uL (1.0-4.8); Lymphocytes % (A) 11 %; MCH 31.8 pg (25.0-35.0); MCHC 31.5 g/dL (31.0-37.0); Macrocytosis Slight; Mean Platelet Volume 8.8; Monocytes # (A) 0.7 k/uL (0-1.0); Monocytes % (A) 6 %; Neutrophils # (A) 9.9 k/uL (1.3-7.7); Neutrophils % (A) 80 %; Platelet Count 484 k/uL (150-450); RBC 3.18 m/uL (3.80-5.40); RDW 13.3 % (11.5-15.5); WBC 12.5 k/uL (3.8-10.6)
[2023-01-09] MEDS: CHOLECALCIFEROL 10 MCG (400 IU) TABLET PO SCH (10:17)
[2023-01-09] MEDS: PANTOPRAZOLE 40 MG/10 ML VIAL IVP SCH ×2 (10:17→20:11)
[2023-01-09] MEDS: CYANOCOBALAMIN 500 MCG TAB PO SCH (10:17)
[2023-01-09] MEDS: METOPROLOL SUCCINATE (ER) 25 MG TAB.ER.24H PO SCH ×2 (10:17→20:11)
--- NOTE | 2023-01-09 10:22 | P.PN ---
Subjective Progress Note Date: 01/09/23 82-year-old female admitted back on January 01, for abdominal pain. She also had an ileus, and nausea. The patient was found to have possible common bile duct stones, and underwent an ERCP on January 04, with sphincterotomy, and balloon stone extraction. When the patient was first admitted, her chest x-ray was normal. More recently, her chest x-ray showing an infiltrate in the right lower lobe. She's currently on 2 L of oxygen. She's getting saline at 20 mL an hour. She is currently on cefepime. She doesn't do to some chest congestion, cough, and mild shortness of breath. Laboratory data includes a white count 8.8, hemoglobin 9, hematocrit 27.8, and a platelet count 354,000. The patient's pro-calcitonin level, was elevated at 0.53. TSH is normal. Blood cultures are negative. Chest x-ray, and computed tomography scan are consistent with infiltrate, right lower lobe. On today's evaluation of 01/08/2023, the patient is nothing by mouth and the patient is awaiting laparoscopic cholecystectomy to be done. LFTs are also improving. The patient has no specific complaints. I reviewed the CT scan of the chest that was on time of admission. The patient's bilateral pleural effus ion slightly worse on the right and the patient has some atelectatic change in the right lung base. She is currently on oxygen 2 L/m nasal cannula. She is denying any significant complaints. On 01/09/2023, the patient is still awaiting her surgery. The patient was supposed to undergo a laparoscopic cholecystectomy yesterday. This was considered as the patient went into A. fib RVR. She was seen by cardiology. She was treated with Cardizem drip which is still running at 10 mg an hour. She converted into back sinus rhythm and she is currently hemodynamically stable. The chest x-ray still showing small bilateral pleural effusion slightly worse on the right. She is currently on room air oxygen.Blood work today shows the discomfort 4.5, hemoglobin 10.1 and a platelet count of 484. BUN is at 30 with a creatinine of 0.5 and a sodium level is at 139. LFTs are still abnormal and the patient has an alkaline phosphatase of 226. Bilirubin is normal. She is currently nothing by mouth Objective - Vital Signs Vital signs: Vital Signs Temp 98.1 F 01/09/23 10:12 Pulse 88 01/09/23 10:12 Resp 16 01/09/23 10:12 BP 104/51 01/09/23 10:12 Pulse Ox 92 L 01/09/23 10:12 FiO2 Intake & Output 01/08/23 01/09/23 01/09/23 18:59 06:59 18:59 Intake Total 125 Output Total 2 Balance -2 125 Intake: Intake, IV Titration 125 Amount Diltiazem 125 mg In 125 Sodium Chloride 0.9% 100 ml @ 10 MG/HR 10 mls/hr IV .[id number] [facility] Rx#: [id number] Output: Stool 2 Other: Voiding Method Toilet Toilet # Voids 2 - Exam No acute distress, oriented 3. Currently on 2 liters oxygen. Saturations are 94%. No overt respiratory distress. HEENT examination is grossly unremarkable. Mucous membranes are moist. No oral lesions. Neck supple. Full range of motion. No adenopathy thyromegaly or neck vein distention. Cardiovascular examination reveals regular rhythm rate. S1-S2 normal. No S3 or S4. No discernible murmur noted. Lungs reveal mild scattered rhonchi. No wheezes or crackles. Breath sounds are equal. Abdomen soft bowel sounds are heard. No masses or tenderness. Extremities are intact. No cyanosis clubbing or edema. Skin is without rash or lesion. Neurologic examination is brief but nonfocal. - Labs CBC & Chem 7: 01/09/23 09:02 01/09/23 09:02 Labs: Abnormal Lab Results - Last 24 Hours (Table) 01/09/23 01/09/23 Range/Units 09:02 09:02 WBC 12.5 H (3.8-10.6) k/uL RBC 3.18 L (3.80-5.40) m/uL Hgb 10.1 L (11.4-16.0) gm/dL Hct 32.2 L (34.0-46.0) % MCV 101.0 H (80.0-100.0) fL Plt Count 484 H (150-450) k/uL Neutrophils # 9.9 H (1.3-7.7) k/uL Potassium 3.4 L (3.5-5.1) mmol/L Carbon Dioxide 19 L (22-30) mmol/L ALT 41 H (4-34) U/L Alkaline Phosphatase 226 H (38-126) U/L Total Protein 5.8 L (6.3-8.2) g/dL Albumin 3.0 L (3.5-5.0) g/dL Microbiology - Last 24 Hours (Table) 01/03/23 15:38 Blood Culture - Final Blood 01/06/23 18:52 Blood Culture - Preliminary Blood Assessment and Plan Plan: Bilateral pleural effusion right more than left, consider parapneumonic effusion versus reactive. Chest x-ray unchanged and the patient continues to have bites the pleural effusion slightly worse on the right Right lower lobe pneumonia, hospital acquired. This is clinically suspected and the patient is currently on antibiotics with IV cefepime Recent ERCP, for common bile duct obstruction, status post sphincterotomy, and balloon stone extraction, 01/04/2023. History of atrial fibrillation. The patient went into A. fib placed on a Cardizem drip and around 20 a.m., converted back into normal sinus rhythm. Plan: monitor the pleural effusions Thoracentesis of needed Laparoscopic cholecystectomy today Continue IV cefepime Encourage use of incentive spirometer Increase mobility We'll continue to follow
--- NOTE | 2023-01-09 12:00 | P.PN ---
Subjective Progress Note Date: 01/09/23 Patient seen at 9 AM today CHIEF COMPLAINT: abdominal pain HISTORY OF PRESENT ILLNESS: Patient hospitalized with choledocholithiasis. She status post ERCP with removal of 10 stones. Patient initially scheduled for laparoscopic cholecystectomy yesterday. This was canceled due to her going into A. fib with RVR. Cardiology was consulted. They started Cardizem drip. Patient has converted to sinus rhythm. Patient evaluated by cardiology this morning and they have cleared her to proceed with surgery today. Patient currently has no abdominal pain. Denies any nausea vomiting. Afebrile. WBC is up to 12.5 Hgb 10.1 platelets 484 sodium 139 potassium is 3.4 creatinine 0.59 total bilirubin 0.8 AST 33 ALT 41 alk phos up at 226 PHYSICAL EXAM: VITAL SIGNS: Reviewed. GENERAL: Well-developed in no acute distress. ABDOMEN: Soft. Nondistended. nontender NEUROLOGIC: Alert and oriented. Cranial nerves II through XII grossly intact. ASSESSMENT: 1. Choledocholithiasis status post ERCP with removal 10 stones 2. Distended gallbladder with cholelithiasis noted on abdominal ultrasound 3. Possible cholangitis 4. Atrial fibrillation followed by cardiology 5. Hypokalemia PLAN: -Patient scheduled for laparoscopic cholecystectomy today with Dr. Lance -Keep patient NPO -Continue antibiotics -Patient is receiving potassium supplements -Agree with starting fluids at 50 mL per hour while nothing by mouth -Discussed case with cardiology service PSYCHOLOGICAL ANTHROPOLOGIST. They have cleared patient to proceed with surgery today. Physician Nutritional Chemist note has been reviewed by physician. Signing provider agrees with the documented findings, assessment, and plan of care. Objective - Vital Signs Vital signs: Vital Signs Temp 98.1 F 01/09/23 10:12 Pulse 88 01/09/23 10:12 Resp 16 01/09/23 10:12 BP 104/51 01/09/23 10:12 Pulse Ox 92 L 01/09/23 10:12 FiO2 Intake & Output 01/08/23 01/09/23 01/09/23 18:59 06:59 18:59 Intake Total 125 Output Total 2 Balance -2 125 Intake: Intake, IV Titration 125 Amount Diltiazem 125 mg In 125 Sodium Chloride 0.9% 100 ml @ 10 MG/HR 10 mls/hr IV .[id number] [facility] Rx#: [id number] Output: Stool 2 Other: Voiding Method Toilet Toilet # Voids 2 - Labs CBC & Chem 7: 01/09/23 09:02 01/09/23 09:02 Labs: Abnormal Lab Results - Last 24 Hours (Table) 01/09/23 01/09/23 Range/Units 09:02 09:02 WBC 12.5 H (3.8-10.6) k/uL RBC 3.18 L (3.80-5.40) m/uL Hgb 10.1 L (11.4-16.0) gm/dL Hct 32.2 L (34.0-46.0) % MCV 101.0 H (80.0-100.0) fL Plt Count 484 H (150-450) k/uL Neutrophils # 9.9 H (1.3-7.7) k/uL Potassium 3.4 L (3.5-5.1) mmol/L Carbon Dioxide 19 L (22-30) mmol/L ALT 41 H (4-34) U/L Alkaline Phosphatase 226 H (38-126) U/L Total Protein 5.8 L (6.3-8.2) g/dL Albumin 3.0 L (3.5-5.0) g/dL Microbiology - Last 24 Hours (Table) 01/03/23 15:38 Blood Culture - Final Blood 01/06/23 18:52 Blood Culture - Preliminary Blood
[2023-01-09] MEDS: POTASSIUM CHLORIDE ER 20 MEQ TAB.ER PO SCH ×2 (12:03→15:11)
[2023-01-09] MEDS: MULTIVITAMINS, THERA 1 EACH TAB PO SCH (12:03)
[2023-01-09] MEDS: FOLIC ACID 1 MG TAB PO SCH (12:03)
[2023-01-09] MEDS: MAGNESIUM OXIDE 400 MG TAB PO SCH (12:03)
--- NOTE | 2023-01-09 12:18 | P.PN ---
Subjective Progress Note Date: 01/09/23 HISTORY OF PRESENT ILLNESS: This is an 82 year old female patient of Dr. Sumanth Campos with past medical history of paroxysmal atrial fibrillation off anticoagulation as patient has had no episodes of atrial fibrillation in nearly 3 years, history of mitral valve insufficiency, aortic valve insufficiency. We have been asked to evaluate the patient for atrial fibrillation. Patient presented to the hospital on 01/01 for diarrhea and nausea following Thanksgiving. Patient was apparently discharged and came back was found to be in atrial fibrillation. She continued to have nausea and decreased appetite and was dehydrated along with some abdominal pain after eating. She was found to have a distended gallbladder with cholelithiasis on ultrasound and choledocholithiasis with elevated LFTs. She has been seen by GI and scheduled for ERCP tomorrow and also seen by general surgery planned for cholecystectomy next week. Patient states that she has felt some palpitations that she thought were extra beats. Telemetry was ordered as patient's heart rate was irregular and shortly thereafter, patient was in A. fib with RVR at 150 bpm. EKG #1 sinus rhythm with PACs, #2 atrial fibrillation at a ventricular rate of 147. Chest x-ray: No acute cardiopulmonary process. WBC 7.8, hemoglobin 8.6, platelet count 181. Sodium 137, potassium 4.4, chloride 108, CO2 20, creatinine 0.8. Liver function tests are elevated 01/04/2023 Patient examined this morning at the bedside. Patient currently denies chest pain or pressure. She denies shortness of breath. Echocardiogram completed revealing normal LV function, moderate mitral regurgitation, moderate aortic regurgitation, and severe tricuspid regurgitation. Telemetry reveals sinus mechanism with PACs. Cardizem drip infusing at 5mg/hr. 01/05/2023 Patient examined this morning at the bedside. She is status post ERCP. She denies chest pain or pressure. She denies shortness of breath. Telemetry reveals sinus mechanism with a heart rate in the 90s. She is scheduled to undergo cholecystectomy on 01/08/2023. 01/09 We have been reconsulted for A. fib with RVR. Patient was found to be in A. fib with RVR last evening and started on a Cardizem drip. Patient denies having any symptoms, no lightheadedness, palpitations, chest pain. She is scheduled for upper scopic cholecystectomy today. Patient remains in A. fib with rate contro lled. Patient is not currently on heparin drip. PHYSICAL EXAM: VITAL SIGNS: Reviewed. GENERAL: Well-developed in no acute distress. NECK: Supple. No JVD or thyromegaly LUNGS: Respirations even and unlabored. Lungs essentially clear to auscultation bilaterally. HEART: Irregular rate and rhythm. S1 and S2 heard. Holosystolic murmur noted at the apex. EXTREMITIES: Normal range of motion. No clubbing or cyanosis. Peripheral pulses intact. No lower extremity edema ASSESSMENT: Choledocholithiasis, status post ERCP Cholelithiasis, scheduled for cholecystectomy this afternoon Paroxysmal atrial fibrillation with RVR Valvular heart disease PLAN: Patient is cleared for laparoscopic cholecystectomy by cardiology. Continue current cardiac medications Patient scheduled for cholecystectomy on 01/08/2023 Patient to be started on Eliquis postoperatively as soon as cleared by general surgery Increase metoprolol to 25 mg twice daily Discontinue Cardizem drip Further recommendations pending patient course Nurse practitioner note has been reviewed by physician. Signing provider agrees with the documented findings, assessment, and plan of care. Objective - Vital Signs Vital signs: Vital Signs Temp 98.3 F 01/09/23 12:00 Pulse 82 01/09/23 12:03 Resp 16 01/09/23 12:00 BP 109/56 01/09/23 12:00 Pulse Ox 99 01/09/23 12:00 FiO2 Intake & Output 01/08/23 01/09/23 01/09/23 18:59 06:59 18:59 Intake Total 125 Output Total 2 Balance -2 125 Intake: Intake, IV Titration 125 Amount Diltiazem 125 mg In 125 Sodium Chloride 0.9% 100 ml @ 10 MG/HR 10 mls/hr IV .[id number] [facility] Rx#: [id number] Output: Stool 2 Other: Voiding Method Toilet Toilet Toilet # Voids 2 - Labs CBC & Chem 7: 01/09/23 09:02 01/09/23 09:02 Labs: Abnormal Lab Results - Last 24 Hours (Table) 01/09/23 01/09/23 Range/Units 09:02 09:02 WBC 12.5 H (3.8-10.6) k/uL RBC 3.18 L (3.80-5.40) m/uL Hgb 10.1 L (11.4-16.0) gm/dL Hct 32.2 L (34.0-46.0) % MCV 101.0 H (80.0-100.0) fL Plt Count 484 H (150-450) k/uL Neutrophils # 9.9 H (1.3-7.7) k/uL Potassium 3.4 L (3.5-5.1) mmol/L Carbon Dioxide 19 L (22-30) mmol/L ALT 41 H (4-34) U/L Alkaline Phosphatase 226 H (38-126) U/L Total Protein 5.8 L (6.3-8.2) g/dL Albumin 3.0 L (3.5-5.0) g/dL Microbiology - Last 24 Hours (Table) 01/03/23 15:38 Blood Culture - Final Blood 01/06/23 18:52 Blood Culture - Preliminary Blood
[2023-01-09 14:15] VITALS: BMI 21.8
--- NOTE | 2023-01-09 14:43 | P.PN ---
Subjective Progress Note Date: 01/08/23 Principal diagnosis: Reason for follow-up is fever and cholangitis Patient is a 82-year-old female with a past medical history significant for atrial fibrillation patient presenting to the hospital concerning for A-fib , patient also have elevated liver enzymes CT suggestive of CBD stone and the patient subsequently spiked a fever concerning for cholangitis patient is status post ERCP completed on 01/04/2023 On today's evaluation that is 01/08/2023 the patient remains to be afebrile, the patient is breathing comfortably on 2 L nasal cannula supplemental oxygen, the patient denies having any chest pain denies any cough or sputum production, patient did have some epigastric discomfort but no nausea vomiting or any diarrhea Patient did have a white count of 10.1, creatinine 0.52, procalcitonin is 0.53, blood cultures so far negative Objective - Vital Signs Vital signs: Vital Signs Temp 97.7 F 01/08/23 04:00 Pulse 90 01/08/23 07:51 Resp 16 01/08/23 04:00 BP 155/94 01/08/23 04:00 Pulse Ox 96 01/08/23 07:41 FiO2 Intake & Output 01/07/23 01/08/23 01/08/23 18:59 06:59 18:59 Intake Total 540 Output Total 1 Balance 539 Intake: Oral 540 Output: Stool 1 Other: Voiding Method Toilet Toilet # Voids 1 1 # Bowel Movements 1 - Exam GENERAL DESCRIPTION: An elderly female lying in bed in no distress RESPIRATORY SYSTEM: Unlabored breathing , decreased breath sound at the bases HEART: S1 S2 regular rate and rhythm , ABDOMEN: Soft , no tenderness EXTREMITIES: No edema feet - Labs CBC & Chem 7: 01/09/23 09:02 01/09/23 09:02 Labs: Abnormal Lab Results - Last 24 Hours (Table) 01/07/23 01/07/23 01/07/23 Range/Units 10:56 10:56 10:56 RBC 2.80 L (3.80-5.40) m/uL Hgb 9.0 L (11.4-16.0) gm/dL Hct 27.8 L (34.0-46.0) % Neutrophils # (1.3-7.7) k/uL Lymphocytes # 0.5 L (1.0-4.8) k/uL Chloride 109 H (98-107) mmol/L Carbon Dioxide 20 L (22-30) mmol/L AST 53 H (14-36) U/L ALT 49 H (4-34) U/L Alkaline Phosphatase 194 H (38-126) U/L C-Reactive Protein 19.9 H (<1.0) mg/dL Total Protein 5.0 L (6.3-8.2) g/dL Albumin 2.5 L (3.5-5.0) g/dL Procalcitonin 0.40 H (0.02-0.09) ng/mL 01/08/23 01/08/23 Range/Units 06:41 06:41 RBC 2.84 L (3.80-5.40) m/uL Hgb 9.0 L (11.4-16.0) gm/dL Hct 28.2 L (34.0-46.0) % Neutrophils # 8.5 H (1.3-7.7) k/uL Lymphocytes # 0.5 L (1.0-4.8) k/uL Chloride (98-107) mmol/L Carbon Dioxide (22-30) mmol/L AST 43 H (14-36) U/L ALT 48 H (4-34) U/L Alkaline Phosphatase 191 H (38-126) U/L C-Reactive Protein (<1.0) mg/dL Total Protein 5.2 L (6.3-8.2) g/dL Albumin 2.6 L (3.5-5.0) g/dL Procalcitonin (0.02-0.09) ng/mL Microbiology - Last 24 Hours (Table) 01/06/23 18:52 Blood Culture - Preliminary Blood 01/04/23 08:01 Blood Culture - Preliminary Blood Assessment and Plan (1) Cholangitis Current Visit: Yes Status: Acute Code(s): K83.09 - OTHER CHOLANGITIS SNOMED Code(s): 29130349 (2) Choledocholithiasis Current Visit: Yes Status: Acute Code(s): K80.50 - CALCULUS OF BILE DUCT W/O CHOLANGITIS OR CHOLECYST W/O OBST SNOMED Code(s): 444120170 Plan: 1patient presented to the hospital with sepsis in this patient who did have a fever tachycardia elevated liver enzymes also likely cholangitis with evidence of dilated CBD and possible stone likely from enteric gram-negative pathogen. 2patient with a penicillin allergy that would limit the number of antibiotic safety use reaction was rash and has tolerated Keflex without any problem. 3patient with a mild cough more likely atelectasis clinically not behaving as pneumonia, patient had been advised incentive spirometry , try to obtain sputum and continued the patient on cefepime 4-patient continue with the cefepime with a plan for cholecystectomy this afternoon Family the bedside questions were answered Dictation was produced using [employer] dictation software. please excuse any grammatical, word or spelling errors. Time with Patient: Less than 30
--- NOTE | 2023-01-09 14:45 | P.PN ---
Subjective Progress Note Date: 01/09/23 Principal diagnosis: Reason for follow-up is fever and cholangitis Patient is a 82-year-old female with a past medical history significant for atrial fibrillation patient presenting to the hospital concerning for A-fib , patient also have elevated liver enzymes CT suggestive of CBD stone and the patient subsequently spiked a fever concerning for cholangitis patient is status post ERCP completed on 01/04/2023, patient is scheduled for laparoscopic cholecystectomy 01/09/2023 On today's evaluation that is 01/09/2023, the patient continues to be afebrile and is breathing comfortably on 2 L nasal cannula oxygen, and patient denies any shortness of breath, chest pain, no cough or sputum production, patient denies nausea/vomiting /diarrhea and no abdominal pain. Patient did have a white count slightly up to 12.5 and creatinine 0.59, procalcitonin is 0.53, blood cultures so far negative Objective - Vital Signs Vital signs: Vital Signs Temp 98.3 F 01/09/23 12:00 Pulse 82 01/09/23 12:03 Resp 16 01/09/23 12:00 BP 109/56 01/09/23 12:00 Pulse Ox 99 01/09/23 12:00 FiO2 Intake & Output 01/08/23 01/09/23 01/09/23 18:59 06:59 18:59 Intake Total 125 Output Total 2 Balance -2 125 Intake: Intake, IV Titration 125 Amount Diltiazem 125 mg In 125 Sodium Chloride 0.9% 100 ml @ 10 MG/HR 10 mls/hr IV .[id number] [facility] Rx#: [id number] Output: Stool 2 Other: Voiding Method Toilet Toilet Toilet # Voids 2 - Exam GENERAL DESCRIPTION: An elderly female lying in bed in no distress RESPIRATORY SYSTEM: Unlabored breathing , decreased breath sound at the bases HEART: S1 S2 regular rate and rhythm , ABDOMEN: Soft , no tenderness EXTREMITIES: No edema feet - Labs CBC & Chem 7: 01/09/23 09:02 01/09/23 09:02 Labs: Abnormal Lab Results - Last 24 Hours (Table) 01/09/23 01/09/23 Range/Units 09:02 09:02 WBC 12.5 H (3.8-10.6) k/uL RBC 3.18 L (3.80-5.40) m/uL Hgb 10.1 L (11.4-16.0) gm/dL Hct 32.2 L (34.0-46.0) % MCV 101.0 H (80.0-100.0) fL Plt Count 484 H (150-450) k/uL Neutrophils # 9.9 H (1.3-7.7) k/uL Potassium 3.4 L (3.5-5.1) mmol/L Carbon Dioxide 19 L (22-30) mmol/L ALT 41 H (4-34) U/L Alkaline Phosphatase 226 H (38-126) U/L Total Protein 5.8 L (6.3-8.2) g/dL Albumin 3.0 L (3.5-5.0) g/dL Microbiology - Last 24 Hours (Table) 01/03/23 15:38 Blood Culture - Final Blood 01/06/23 18:52 Blood Culture - Preliminary Blood Assessment and Plan (1) Cholangitis Current Visit: Yes Status: Acute Code(s): K83.09 - OTHER CHOLANGITIS SNOMED Code(s): 88829249 (2) Choledocholithiasis Current Visit: Yes Status: Acute Code(s): K80.50 - CALCULUS OF BILE DUCT W/O CHOLANGITIS OR CHOLECYST W/O OBST SNOMED Code(s): 807922378 Plan: 1patient presented to the hospital with sepsis in this patient who did have a fever tachycardia elevated liver enzymes also likely cholangitis with evidence of dilated CBD and possible stone likely from enteric gram-negative pathogen. 2patient with a penicillin allergy that would limit the number of antibiotic safety use reaction was rash and has tolerated Keflex without any problem. 3patient with a mild cough more likely atelectasis clinically not behaving as pneumonia, patient to continue with incentive spirometry 4-patient continue with the cefepime with a plan for cholecystectomy this afternoon which has been rescheduled from yesterday and monitor clinical course closely Family the bedside questions were answered Dictation was produced using [employer] dictation software. please excuse any grammatical, word or spelling errors. Time with Patient: Less than 30
[2023-01-09] MEDS: ACETAMINOPHEN TAB 325 MG TAB PO PRN (15:12)
--- NOTE | 2023-01-09 15:17 | PN ---
PROGRESS NOTE DATE OF SERVICE: 01/09/2023 SUBJECTIVE: This is an 82-year-old woman, who was admitted with abdominal pain, choledocholithiasis, and cholelithiasis, is being scheduled for surgery today. The patient also had atrial fibrillation with fast ventricular rate. The most recent chest x-ray done today showed some right pleural effusion. PHYSICAL EXAMINATION: VITAL SIGNS: Pulse is 82, blood pressure 109/53, respirations 16. CHEST: Few scattered rhonchi. ABDOMEN: Soft and nontender. NERVOUS SYSTEM: Nonfocal. LABORATORY DATA: WBC 12.5. Potassium 3.4. ASSESSMENT: 1. Abdominal pain with possible choledocholithiasis and cholelithiasis with nausea. 2. Fever, possible cholangitis, improved. 3. Possible right lower lobe pneumonia and as well as right pleural effusion. Consider possible acute pneumonia. 4. Elevated WBC. 5. Atrial fibrillation with fast ventricular rate, recurrent. 6. Abnormal liver function tests, improving. 7. Partial small bowel obstruction, improving. 8. Hyponatremia. 9. Anemia. 10.Premature ventricular contractions. 11.Multiple complex medical issues. RECOMMENDATIONS: Recommend to continue current medical management. Continue symptomatic treatment. Otherwise, repeat labs. Continue with antibiotics. Possible surgery today. Closely follow with multiple consultants including Cardiology. Stable, but overall prognosis is guarded. Discussed with family. Further recommendations to follow. MMODL / IJN: [id number] /
[2023-01-09] MEDS ORDERED: HEPARIN SODIUM,PORCINE/PF 5,000 UNIT/0.5 ML SYRINGE SQ ONE (15:48)
[2023-01-09] MEDS ORDERED: SODIUM CHLORIDE 0.9% 100 ML BAG ONE (15:54)
[2023-01-09] MEDS ORDERED: SUCCINYLCHOLINE CHLORIDE 200 MG/10 ML VIAL IV ONE (15:54)
[2023-01-09] MEDS ORDERED: ceFAZolin 1,000 MG VIAL ONE (15:54)
[2023-01-09] MEDS ORDERED: fentaNYL (PF) 50 MCG/ML 2 ML AMP ONE (15:54)
[2023-01-09] MEDS ORDERED: ROCURONIUM 10 MG/ML (5 ML VIAL) IV ONE (15:54)
[2023-01-09] MEDS ORDERED: KETOROLAC 15 MG/ML 1 ML VIAL ONE (15:54)
[2023-01-09] MEDS ORDERED: LIDOCAINE 1% INJ 10MG/ML (20 ML MDV) ONE (15:54)
[2023-01-09] MEDS ORDERED: PROPOFOL 10 MG/ML 20 ML VIAL IV ONE (15:54)
[2023-01-09] MEDS: LACTATED RINGERS 1,000 ML IV ONE ×2 (15:56→20:09)
[2023-01-09] MEDS ORDERED: ONDANSETRON 4 MG/2 ML VIAL IVP ONE (15:57)
[2023-01-09] MEDS ORDERED: DEXAMETHASONE SOD PHOSPHATE 4 MG/ML 1 ML VIAL IVP ONE (15:57)
[2023-01-09] MEDS ORDERED: HEPARIN SODIUM,PORCINE 5,000 UNIT/ML 1 ML VIAL SQ ONE (15:58)
[2023-01-09] MEDS ORDERED: LACTATED RINGERS 1,000 ML IV ONE (15:59)
[2023-01-09] MEDS ORDERED: BUPIVACAINE (PF) 0.25% 30 ML VIAL SQ ONE ×2 (16:11)
--- NOTE | 2023-01-09 16:36 | P.OP ---
Date of Procedure: 01/09/23 Preoperative Diagnosis: Cholelithiasis Cholecystitis Postoperative Diagnosis: Cholelithiasis Cholecystitis Procedure(s) Performed: Laparoscopic cholecystectomy Transversus abdominis plane block Anesthesia: JUDD Surgeon: Jose Lance Estimated Blood Loss (ml): 5 Pathology: other (Gallbladder) Condition: stable Disposition: PACU Description of Procedure: The patient was placed on the operating table. The patient received a general endotracheal tube anesthesia. The patients abdomen was prepped and draped in the usual sterile fashion. Through an infraumbilical stab incision, the fascia of the anterior abdominal wall was grasped with a pair of Kochers and t hen the Veress needle was placed in the peritoneal cavity. Position of the Veress needle was confirmed with positive drop test. The abdomen was then insufflated. After adequate insufflation, the 10 mm trocar was placed in the peritoneal cavity. Following this the laparoscope was placed in the peritoneal cavity. The patient was placed in the head-up, right side up position and then a 5 mm trocar was placed in the right lateral and right subcostal position under direct visualization. A 8 mm trocar was placed in the epigastric position. The gallbladder was grasped in the fundus and in fundibulum. Traction on the gallbladder was placed in the lateral and the cephalad positions. The triangle of Calot was visualized.. The cystic duct was bluntly dissected until the union of the cystic duct and common bile duct was seen. A critical view of safety was achieved. The cystic duct was then divided and sealed with the Harmonic scissors. A PDS Endoloop was then placed throughout the cystic duct stump. The cystic artery divided and sealed with the Harmonic scissors. The gallbladder was then removed from the liver bed using Harmonic scissors. The gallbladder was then extracted through the epigastric port site. Operative field was checked for any bleeding spots and Harmonic scissors was used to coagulate the liver bed. The abdomen was irrigated. The trocars were removed. The skin was closed using interrupted 3-0 Vicryl suture. Dermabond dressing were applied. The patient tolerated the procedure well.
[2023-01-09] MEDS ORDERED: ONDANSETRON 4 MG/2 ML VIAL IVP PRN (17:17)
[2023-01-09] MEDS ORDERED: HYDROcodone/APAP 7.5-325MG 1 EACH TAB PO PRN (17:17)
[2023-01-09] MEDS ORDERED: HYDROmorphone 1 MG/ML 1 ML SYRINGE IVP PRN (17:17)
[2023-01-10 01:56] VITALS: RESP 18
[2023-01-10] MEDS: CEFEPIME 2 GM in SODIUM CHLORIDE 0.9% 100 ML IVPB SCH ×2 (06:46→12:26)
[2023-01-10] MEDS: SODIUM CHLORIDE 0.9% 1,000 ML IV SCH (06:47)
[2023-01-10] MEDS: THIAMINE 100 MG TAB PO SCH (06:47)
[2023-01-10] MEDS: IPRATROPIUM-ALBUTEROL 3 ML NEB INHALATION SCH ×2 (08:17→15:16)
--- NOTE | 2023-01-10 08:42 | XR ---
EXAMINATION TYPE: XR chest 1V portable DATE OF EXAM: 01/10/2023 COMPARISON: 01/09/2023 HISTORY: Shortness of breath TECHNIQUE: Single frontal view of the chest is obtained. FINDINGS: The heart is enlarged and there is bilateral consolidation and pleural effusion. Calcifica tion left lower lobe noted and there is biapical pleural thickening. Diffuse osteopenia and degenerat richard changes of the spine. Underlying COPD. No overt failure. IMPRESSION: Bilateral consolidation and small pleural effusion stable.
[2023-01-10] MEDS: CHOLECALCIFEROL 10 MCG (400 IU) TABLET PO SCH (09:09)
[2023-01-10] MEDS: PANTOPRAZOLE 40 MG/10 ML VIAL IVP SCH (09:09)
[2023-01-10] MEDS: METOPROLOL SUCCINATE (ER) 25 MG TAB.ER.24H PO SCH (09:09)
[2023-01-10] MEDS: CYANOCOBALAMIN 500 MCG TAB PO SCH (09:09)
[2023-01-10 09:31] VITALS: TEMP 97.7
[2023-01-10] MEDS: MAGNESIUM OXIDE 400 MG TAB PO SCH (11:07)
[2023-01-10] MEDS: FOLIC ACID 1 MG TAB PO SCH (11:07)
[2023-01-10] MEDS: MULTIVITAMINS, THERA 1 EACH TAB PO SCH (11:08)
[2023-01-10 11:29] VITALS: BP 104/69
--- NOTE | 2023-01-10 11:32 | P.PN ---
Subjective Progress Note Date: 01/10/23 CHIEF COMPLAINT: abdominal pain HISTORY OF PRESENT ILLNESS: Patient hospitalized with choledocholithiasis. She status post ERCP with removal of 10 stones. She is postop day #1 status post laparoscopic cholecystectomy. Patient tolerating diet. No flatus. Denies any nausea vomiting. She does report feeling a little bloated. Denies any abdominal pain. Patient has been ambulating. Afebrile. Labs for today pending PHYSICAL EXAM: VITAL SIGNS: Reviewed. GENERAL: Well-developed in no acute distress. ABDOMEN: Soft. Mildly distended. Incision sites clean dry and intact. nontender NEUROLOGIC: Alert and oriented. Cranial nerves II through XII grossly intact. ASSESSMENT: 1. Cholecystitis with cholelithiasis status post laparoscopic cholecystectomy 2. Choledocholithiasis status post ERCP with removal 10 stones 3. Possible cholangitis 4. Atrial fibrillation followed by cardiology PLAN: -Patient can be discharged from surgical standpoint when medically cleared -Discharge antibiotics per infectious disease -Ok to start Eliquis tonight -Continue low-fat diet -Encouraged patient to ambulate Physician Parent Aide note has been reviewed by physician. Signing provider agrees with the documented findings, assessment, and plan of care. Objective - Vital Signs Vital signs: Vital Signs Temp 97.7 F 01/10/23 09:03 Pulse 99 01/10/23 09:03 Resp 18 01/10/23 09:03 BP 122/73 01/10/23 09:03 Pulse Ox 93 L 01/10/23 09:03 FiO2 Intake & Output 01/09/23 01/10/23 01/10/23 18:59 06:59 18:59 Intake Total 500 120 Output Total 5 Balance 495 120 Weight 54.2 kg Intake: IV 500 Oral 120 Output: Estimated Blood Loss 5 Other: Voiding Method Toilet Toilet Toilet # Voids 1 1 1 - Labs CBC & Chem 7: 01/09/23 09:02 01/09/23 09:02 Labs: Abnormal Lab Results - Last 24 Hours (Table) 01/09/23 01/09/23 Range/Units 09:02 09:02 WBC 12.5 H (3.8-10.6) k/uL RBC 3.18 L (3.80-5.40) m/uL Hgb 10.1 L (11.4-16.0) gm/dL Hct 32.2 L (34.0-46.0) % MCV 101.0 H (80.0-100.0) fL Plt Count 484 H (150-450) k/uL Neutrophils # 9.9 H (1.3-7.7) k/uL Potassium 3.4 L (3.5-5.1) mmol/L Carbon Dioxide 19 L (22-30) mmol/L ALT 41 H (4-34) U/L Alkaline Phosphatase 226 H (38-126) U/L Total Protein 5.8 L (6.3-8.2) g/dL Albumin 3.0 L (3.5-5.0) g/dL Microbiology - Last 24 Hours (Table) 01/06/23 18:52 Blood Culture - Preliminary Blood 01/04/23 08:01 Blood Culture - Final Blood 01/03/23 15:38 Blood Culture - Final Blood
[2023-01-10 12:15] LABS: ALT 37 U/L (4-34); African American GFR (CKD) >90 (>60 ml/min/1.73 sqM); Albumin 2.9 g/dL (3.5-5.0); Anion Gap 10 mmol/L; Blood Urea Nitrogen 26 mg/dL (7-17); Calcium 8.9 mg/dL (8.4-10.2); Carbon Dioxide 19 mmol/L (22-30); Chloride 106 mmol/L (98-107); Glucose 175 mg/dL (74-99); Non-African American GFR(CKD) 82 (>60 ml/min/1.73 sqM); Sodium 135 mmol/L (137-145); Total Bilirubin 0.7 mg/dL (0.2-1.3); Total Protein 5.7 g/dL (6.3-8.2)
[2023-01-10 12:19] LABS: AST 47 U/L (14-36); Alkaline Phosphatase 175 U/L (38-126); Potassium 4.8 mmol/L (3.5-5.1)
--- NOTE | 2023-01-10 12:37 | P.PN ---
Subjective Progress Note Date: 01/10/23 Principal diagnosis: Reason for follow-up is fever and cholangitis Patient is a 82-year-old female with a past medical history significant for atrial fibrillation patient presenting to the hospital concerning for A-fib , patient also have elevated liver enzymes CT suggestive of CBD stone and the patient subsequently spiked a fever concerning for cholangitis patient is status post ERCP completed on 01/04/2023, patient is status post laparoscopic cholecystectomy completed on 01/09/2023 On today's evaluation that is 01/10/2023 the patient remains to be afebrile, the patient is breathing comfortably on 2 L nasal cannula supplemental oxygen, the patient denies having any chest pain or cough and no sputum production, patient denies nausea vomiting or any diarrhea, and no abdominal pain Patient did have a white count of 12.5 as of yesterday CBC pending from this m orning and creatinine is 0.70, procalcitonin is 0.53, blood cultures so far negative Objective - Vital Signs Vital signs: Vital Signs Temp 97.7 F 01/10/23 11:05 Pulse 86 01/10/23 11:05 Resp 18 01/10/23 12:28 BP 104/69 01/10/23 11:05 Pulse Ox 95 01/10/23 12:28 FiO2 Intake & Output 01/09/23 01/10/23 01/10/23 18:59 06:59 18:59 Intake Total 500 357 Output Total 5 Balance 495 357 Weight 54.2 kg Intake: IV 500 Oral 357 Output: Estimated Blood Loss 5 Other: Voiding Method Toilet Toilet Toilet # Voids 1 1 1 - Exam GENERAL DESCRIPTION: An elderly female lying in bed in no distress RESPIRATORY SYSTEM: Unlabored breathing , decreased breath sound at the bases HEART: S1 S2 regular rate and rhythm , ABDOMEN: Soft , no tenderness EXTREMITIES: No edema feet - Labs CBC & Chem 7: 01/09/23 09:02 01/10/23 11:28 Labs: Abnormal Lab Results - Last 24 Hours (Table) 01/10/23 Range/Units 11:28 Sodium 135 L (137-145) mmol/L Carbon Dioxide 19 L (22-30) mmol/L BUN 26 H (7-17) mg/dL Glucose 175 H (74-99) mg/dL AST 47 H (14-36) U/L ALT 37 H (4-34) U/L Alkaline Phosphatase 175 H (38-126) U/L Total Protein 5.7 L (6.3-8.2) g/dL Albumin 2.9 L (3.5-5.0) g/dL Microbiology - Last 24 Hours (Table) 01/06/23 18:52 Blood Culture - Preliminary Blood 01/04/23 08:01 Blood Culture - Final Blood Assessment and Plan (1) Cholangitis Current Visit: Yes Status: Acute Code(s): K83.09 - OTHER CHOLANGITIS SNOMED Code(s): 01082216 (2) Choledocholithiasis Current Visit: Yes Status: Acute Code(s): K80.50 - CALCULUS OF BILE DUCT W/O CHOLANGITIS OR CHOLECYST W/O OBST SNOMED Code(s): 520245377 Plan: 1patient presented to the hospital with sepsis in this patient who did have a fever tachycardia elevated liver enzymes also likely cholangitis with evidence of dilated CBD and possible stone likely from enteric gram-negative pathogen. 2patient with a penicillin allergy that would limit the number of antibiotic safety use reaction was rash and has tolerated Keflex without any problem. 3patient with a mild cough more likely atelectasis clinically not behaving as pneumonia, patient to continue with incentive spirometry 4-patient to continue with the cefepime while patient will be transitioned to oral Ceftin on discharge Questions and concerns were answered Dictation was produced using [employer] dictation software. please excuse any grammatical, word or spelling errors. Time with Patient: Less than 30
[2023-01-10 12:47] LABS: Basophils % (A) 0 %; Eosinophils % (A) 0 %; HGB 9.9 gm/dL (11.4-16.0); Hypochromasia Moderate; Lymphocytes # (A) 0.3 k/uL (1.0-4.8); Lymphocytes % (A) 3 %; MCH 32.2 pg (25.0-35.0); MCHC 31.8 g/dL (31.0-37.0); MCV 101.3 fL (80.0-100.0); Macrocytosis Slight; Mean Platelet Volume 8.4; Monocytes # (A) 0.4 k/uL (0-1.0); Monocytes % (A) 4 %; Neutrophils # (A) 9.7 k/uL (1.3-7.7); Neutrophils % (A) 92 %; Platelet Count 402 k/uL (150-450); RBC 3.06 m/uL (3.80-5.40); RDW 13.3 % (11.5-15.5); WBC 10.5 k/uL (3.8-10.6)
--- NOTE | 2023-01-10 13:05 | P.EN ---
Patient will require home oxygen 2 L via nasal cannula secondary to hospital- acquired bilateral pneumonia as well as bilateral pleural effusions
--- NOTE | 2023-01-10 14:17 | P.PN ---
Subjective Progress Note Date: 01/10/23 HISTORY OF PRESENT ILLNESS: This is an 82 year old female patient of Dr. Sumanth Campos with past medical history of paroxysmal atrial fibrillation off anticoagulation as patient has had no episodes of atrial fibrillation in nearly 3 years, history of mitral valve insufficiency, aortic valve insufficiency. We have been asked to evaluate the patient for atrial fibrillation. Patient presented to the hospital on 01/01 for diarrhea and nausea following Thanksgiving. Patient was apparently discharged and came back was found to be in atrial fibrillation. She continued to have nausea and decreased appetite and was dehydrated along with some abdominal pain after eating. She was found to have a distended gallbladder with cholelithiasis on ultrasound and choledocholithiasis with elevated LFTs. She has been seen by GI and scheduled for ERCP tomorrow and also seen by general surgery planned for cholecystectomy next week. Patient states that she has felt some palpitations that she thought were extra beats. Telemetry was ordered as patient's heart rate was irregular and shortly thereafter, patient was in A. fib with RVR at 150 bpm. EKG #1 sinus rhythm with PACs, #2 atrial fibrillation at a ventricular rate of 147. Chest x-ray: No acute cardiopulmonary process. WBC 7.8, hemoglobin 8.6, platelet count 181. Sodium 137, potassium 4.4, chloride 108, CO2 20, creatinine 0.8. Liver function tests are elevated 01/04/2023 Patient examined this morning at the bedside. Patient currently denies chest pain or pressure. She denies shortness of breath. Echocardiogram completed revealing normal LV function, moderate mitral regurgitation, moderate aortic regurgitation, and severe tricuspid regurgitation. Telemetry reveals sinus mechanism with PACs. Cardizem drip infusing at 5mg/hr. 01/05/2023 Patient examined this morning at the bedside. She is status post ERCP. She denies chest pain or pressure. She denies shortness of breath. Telemetry reveals sinus mechanism with a heart rate in the 90s. She is scheduled to undergo cholecystectomy on 01/08/2023. 01/09 We have been reconsulted for A. fib with RVR. Patient was found to be in A. fib with RVR last evening and started on a Cardizem drip. Patient denies having any symptoms, no lightheadedness, palpitations, chest pain. She is scheduled for upper scopic cholecystectomy today. Patient remains in A. fib with rate contro lled. Patient is not currently on heparin drip. 01/10 Patient is seen today in follow-up. She states she is feeling okay. No chest pain or shortness of breath. No nausea. She states she was up and ambulating during the night in the hallway. Patient has been cleared of to resume eliquis by general surgery. We'll plan to start this today. Blood pressure 104/69, heart rate 86, afebrile, pulse ox 93% on 2 L nasal cannula. Repeat blood work reveals hemoglobin 9.9. Potassium 4.8, BUN 26 creatinine 0.7. AST 47, ALT 437, alkaline phosphatase 175. PHYSICAL EXAM: VITAL SIGNS: Reviewed. GENERAL: Well-developed in no acute distress. NECK: Supple. No JVD or thyromegaly LUNGS: Respirations even and unlabored. Lungs essentially clear to auscultation bilaterally. HEART: Irregular rate and rhythm. S1 and S2 heard. Holosystolic murmur noted at the apex. EXTREMITIES: Normal range of motion. No clubbing or cyanosis. Peripheral pulses intact. No lower extremity edema ASSESSMENT: Choledocholithiasis, status post ERCP Cholelithiasis, scheduled for cholecystectomy this afternoon Paroxysmal atrial fibrillation with RVR Valvular heart disease PLAN: Patient is status post laparoscopic cholecystectomy Continue current cardiac medications Patient will be resumed on eliquis today as she has been cleared by general surgery. Cardiology will sign off this case and follow on an as-needed basis. Please reconsult for any new concerns. Patient may follow-up in the office in one to [address] Sumanth Campos. Nurse practitioner note has been reviewed by physician. Signing provider agrees with the documented findings, assessment, and plan of care. Objective - Vital Signs Vital signs: Vital Signs Temp 97.7 F 01/10/23 11:05 Pulse 86 01/10/23 11:05 Resp 18 01/10/23 11:05 BP 104/69 01/10/23 11:05 Pulse Ox 93 L 01/10/23 11:05 FiO2 Intake & Output 01/09/23 01/10/23 01/10/23 18:59 06:59 18:59 Intake Total 500 120 Output Total 5 Balance 495 120 Weight 54.2 kg Intake: IV 500 Oral 120 Output: Estimated Blood Loss 5 Other: Voiding Method Toilet Toilet Toilet # Voids 1 1 1 - Labs CBC & Chem 7: 01/10/23 11:28 01/10/23 11:28 Labs: Microbiology - Last 24 Hours (Table) 01/06/23 18:52 Blood Culture - Preliminary Blood 01/04/23 08:01 Blood Culture - Final Blood
[2023-01-10 15:52] VITALS: PULSE 84
--- NOTE | 2023-01-10 16:37 | P.PN ---
Subjective Progress Note Date: 01/10/23 82-year-old female admitted back on January 01, for abdominal pain. She also had an ileus, and nausea. The patient was found to have possible common bile duct stones, and underwent an ERCP on January 04, with sphincterotomy, and balloon stone extraction. When the patient was first admitted, her chest x-ray was normal. More recently, her chest x-ray showing an infiltrate in the right lower lobe. She's currently on 2 L of oxygen. She's getting saline at 20 mL an hour. She is currently on cefepime. She doesn't do to some chest congestion, cough, and mild shortness of breath. Laboratory data includes a white count 8.8, hemoglobin 9, hematocrit 27.8, and a platelet count 354,000. The patient's pro-calcitonin level, was elevated at 0.53. TSH is normal. Blood cultures are negative. Chest x-ray, and computed tomography scan are consistent with infiltrate, right lower lobe. On today's evaluation of 01/08/2023, the patient is nothing by mouth and the patient is awaiting laparoscopic cholecystectomy to be done. LFTs are also improving. The patient has no specific complaints. I reviewed the CT scan of the chest that was on time of admission. The patient's bilateral pleural effus ion slightly worse on the right and the patient has some atelectatic change in the right lung base. She is currently on oxygen 2 L/m nasal cannula. She is denying any significant complaints. On 01/09/2023, the patient is still awaiting her surgery. The patient was supposed to undergo a laparoscopic cholecystectomy yesterday. This was considered as the patient went into A. fib RVR. She was seen by cardiology. She was treated with Cardizem drip which is still running at 10 mg an hour. She converted into back sinus rhythm and she is currently hemodynamically stable. The chest x-ray still showing small bilateral pleural effusion slightly worse on the right. She is currently on room air oxygen.Blood work today shows the discomfort 4.5, hemoglobin 10.1 and a platelet count of 484. BUN is at 30 with a creatinine of 0.5 and a sodium level is at 139. LFTs are still abnormal and the patient has an alkaline phosphatase of 226. Bilirubin is normal. She is currently nothing by mouth On today's evaluation of 01/10/2023, the patient is calm and comfortable on room air oxygen. The patient underwent an upper cervical discectomy yesterday without any complications. She is having no significant abdominal pain. No nausea. No emesis. No fever. No chills. There was another 10.4 with a hemoglobin of 9.9. BUN is 26 and a creatinine of 0.7 and a sodium level is at 135. Alkaline phosphatase is down 275, AST is 47, ALT is down to 37. Rest of the electrolytes are stable. Serum bicarb stable at 19. Sodium is at 135 with a potassium level of 4.8. Pro-calcitonin as of 0.5 x 0.4 respectively. The patient remains on IV cefepime. The patient is back into normal sinus rhythm at this point in time. Patient also started on anticoagulation and the patient is currently on Eliquis 2.5 mg by mouth twice a day. Anticoagulation was resumed by cardiology. Objective - Vital Signs Vital signs: Vital Signs Temp 97.7 F 01/10/23 11:05 Pulse 86 01/10/23 11:05 Resp 18 01/10/23 11:05 BP 104/69 01/10/23 11:05 Pulse Ox 93 L 01/10/23 11:05 FiO2 Intake & Output 01/09/23 01/10/23 01/10/23 18:59 06:59 18:59 Intake Total 500 120 Output Total 5 Balance 495 120 Weight 54.2 kg Intake: IV 500 Oral 120 Output: Estimated Blood Loss 5 Other: Voiding Method Toilet Toilet Toilet # Voids 1 1 1 - Exam No acute distress, oriented 3. Currently on 2 liters oxygen. Saturations are 94%. No overt respiratory distress. HEENT examination is grossly unremarkable. Mucous membranes are moist. No oral lesions. Neck supple. Full range of motion. No adenopathy thyromegaly or neck vein distention. Cardiovascular examination reveals regular rhythm rate. S1-S2 normal. No S3 or S4. No discernible murmur noted. Lungs reveal mild scattered rhonchi. No wheezes or crackles. Breath sounds are equal. Abdomen soft bowel sounds are heard. No masses or tenderness. Extremities are intact. No cyanosis clubbing or edema. Skin is without rash or lesion. Neurologic examination is brief but nonfocal. - Labs CBC & Chem 7: 01/10/23 11:28 01/10/23 11:28 Labs: Microbiology - Last 24 Hours (Table) 01/06/23 18:52 Blood Culture - Preliminary Blood 01/04/23 08:01 Blood Culture - Final Blood Assessment and Plan Plan: Bilateral pleural effusion right more than left, consider parapneumonic effusion versus reactive. Patient is currently on room and oxygen Right lower lobe pneumonia, hospital acquired. This is clinically suspected and the patient is currently on antibiotics with IV cefepime Choledocholithiasis then cholangitis and the patient is status post Recent ERCP, for common bile duct obstruction, status post sphincterotomy, and balloon stone extraction, 01/04/2023. Furthermore, the patient underwent a laparoscopic cholecystectomy on 01/09/2023. LFTs are improving. History of atrial fibrillation. The patient went into A. fib placed on a Cardizem drip and around 20 a.m., converted back into normal sinus rhythm. The patient is currently on anticoagulation with Eliquis per cardiology. Plan: Patient is on room air oxygen and pulse ox is maintained above 90% on room air oxygen. This is at rest. We'll do a home O2 evaluation with activity. monitor the pleural effusions , there is stable for now, anticipate to improve Thoracentesis is not needed at this point in time Continue IV cefepime Anti-coagulation was started with Eliquis Home O2 evaluation to be done today Encourage use of incentive spirometer Increase mobility We'll continue to follow
[2023-01-10] MEDS ORDERED: APIXABAN 2.5 MG TABLET PO SCH (21:00)
--- NOTE | 2023-01-12 08:49 | CDI ---
Documentation Clarification Form Date: 01/12/2023 07:53:40 AM From: Mae Jones Admit Date: 01/02/2023 01:08:00 AM Patient Name: Catrachita Dimas Visit Number: [id number] Discharge Date: 01/10/2023 04:53:00 PM ATTENTION: The Clinical Documentation Specialists (CDI) and [facility] Coding Staff appreciate your assistance in clarifying documentation. Please respond to the clarification below the line at the bottom and electronically sign. The CDI & [facility] Coding staff will review the response and follow-up if needed. Please note: Queries are made part of the Legal Health Record. If you have any questions, please contact the author of this message via ITS. Dr. Ruba Mccormack Per ID consult and PN's 01/04 - 01/10, "Patient presented to the hospital with sepsis in this patient who did have fever tachycardia, elevated liver enzymes also likely cholangis with evidencee of dilated CBD and possible stone likely from enteric gram negative patholgen." Based on this information and the findings below, is there an additional diagnosis that is clinically appropriate for this patient? History/Risk Factors: cholelithiasis and choledochlithiasis Clinical Indicators: WBC 10.6 Blood cultures: No growth Vitals signs: 98.4 F - 100.9 F, 95 bpm, 18, 109/72, 96% RA Treatment: IV antibiotics ID Consult: Sepsis Antibiotics: Levaquin, Zosyn, cefepime Is there an additional diagnosis that is clinically appropriate for this patient? [ x ] Sepsis, present on admission [ ] Sepsis, developed during stay, not present on admission [ ] Sepsis ruled out [ ] Unable to determine SIRS Criteria: 2 or more of the following may indicate SIRS Temperature < 96.8F (36C) or > 101.0F (38.3C) Heart Rate > 90 bpm Respiratory Rate > 20 breaths/min or PaCO2 < 32 mmHg White Blood Cell Count > 12,000 or < 4,000 cells/mm3 or > 10% bands MTDD
--- NOTE | 2023-01-14 08:54 | P.DS ---
Providers Date of admission: 01/02/23 01:08 Expected date of discharge: 01/10/23 Attending physician: Ruba Mccormack Consults: 01/02/23 12:20 Consult Physician Routine Consulting Provider: Jose Lance Consult Reason/Comments: gall stones Do you want consulting provider notified?: Yes 01/03/23 15:23 Consult Physician Urgent Consulting Provider: Lara Dejesus Consult Reason/Comments: cbd stone, fever, ?sepsis Do you want consulting provider notified?: Yes 01/06/23 12:44 Consult Physician Routine Consulting Provider: Christopher Jack Consult Reason/Comments: pneumonia Do you want consulting provider notified?: Yes 01/08/23 13:26 Consult Physician Urgent Consulting Provider: Emi Reynoso Consult Reason/Comments: a-fib rvr Do you want consulting provider notified?: Yes Primary care physician: Rosales Boothe [facility] Course: Final diagnosis Abdominal pain with coital cholelithiasis and cholelithiasis with nausea status post ERCP with stone extraction and laparoscopic cholecystectomy Sepsis, present on admission secondary to gallstone with cholangitis Possible right lower lobe pneumonia as well as right pleural effusion with possible acute ammonia although suspicion is low Leukocytosis, improved Atrial ablation with RVR, recurrent Abnormal liver function tests, improving Partial small bowel obstruction, improved Hyponatremia Chronic anemia PVCs noted GI prophylaxis DVT prophylaxis Full code Discharge disposition Patient is being discharged in a stable condition with guarded prognosis to home . Patient will follow-up with Dr. Boothe in the outpatient setting upon discharge. Patient is to continue with current medications and close outpatient follow-up with cardiology as well as general surgery as scheduled. Patient will continue on oral Ceftin twice daily for the next 5 days. Total time taken is greater than 35 minutes. Hospital course This is a 82-year-old female who was recently admitted with increased abdominal pain with coital cholelithiasis along with cholelithiasis underwent ERCP and was found to have multiple stones and is status post cholecystectomy. Patient also with history of atrial fibrillation although had A. fib with RVR placed on Cardizem drip being closely monitored with cardiology following. Patient also with acute hypoxic respiratory failure with concerns of possible right lower lobe pneumonia and right pleural effusions. Patient did improve and is on room air and is status post cholecystectomy reports to feeling improved and has been cleared by consultations for discharge home. Blood cultures remained negative and patient will need close outpatient follow-up and continue on Ceftin 500 mg twice daily for the next 5 days. Patient instructed to follow-up with primary care provider this week as well as general surgery and cardiology outpatient. She will continue on Eliquis twice daily on discharge. Please refer to other consultation notes for further HPI. Currently no reports of chest pain, shortness of breath, or palpitations. Patient is afebrile. No reports of nausea or vomiting and patient is tolerating diet. Patient will be discharged home with guarded prognosis today. Physical exam: Gen: This is a 82-year-old female who is awake, alert and oriented 3, well- developed, well-nourished HEENT: Head is atraumatic, normocephalic. Pupils equal, round. Sclerae is anicteric. NECK: Supple. No JVD. No lymphadenopathy. No thyromegaly. LUNGS: Diminished breath sounds bilaterally otherwise Clear to auscultation. No wheezes or rhonchi. No intercostal retractions. HEART: S1, S2 muffled, irregular ABDOMEN: Soft. Bowel sounds are present. No masses. Mild tenderness noted on palpation EXTREMITIES: No pedal edema. No calf tenderness. NEUROLOGICAL: Patient is awake, alert and oriented x3. Cranial nerves 2 through 12 are grossly intact. Please refer to medication reconciliation sheet for a list of medications. The impression and plan of care has been dictated by Phuong Irving, Nurse Practitioner as directed. Dr. Easton MD I have performed a history and examination and MDM of this patient, discussed the same with the dictator, and agree with the dictator's assessment and plan as written ,documented as a scribe. Based on total visit time, I have performed more than 50% of the visit. Patient Condition at Discharge: Fair Plan - Discharge Summary Discharge Rx Participant: No New Discharge Prescriptions: New Folic Acid 1 mg PO DAILY@1200 #30 tab Thiamine [Vitamin B-1] 100 mg PO BID-W/MEALS #60 tab Apixaban [Eliquis] 2.5 mg PO BID 30 Days #60 tab cefUROXime axetiL [Ceftin] 500 mg PO BID 10 Days #20 tab Metoprolol Succinate (ER) [Toprol XL] 25 mg PO BID #60 tab Continue Galantamine HBr [Razadyne ER] 16 mg PO DAILY Discontinued Metoprolol Succinate (ER) [Toprol Xl] 25 mg PO DAILY No Action Multivitamins, Thera [Multivitamin (formulary)] 1 tab PO DAILY@1200 Magnesium Oxide [Mag-Ox] 400 mg PO DAILY@1200 Discharge Medication List Galantamine HBr [Razadyne ER] 16 mg PO DAILY 01/02/23 [History] Apixaban [Eliquis] 2.5 mg PO BID 30 Days #60 tab 01/10/23 [Rx] Folic Acid 1 mg PO DAILY@1200 #30 tab 01/10/23 [Rx] Metoprolol Succinate (ER) [Toprol XL] 25 mg PO BID #60 tab 01/10/23 [Rx] Thiamine [Vitamin B-1] 100 mg PO BID-W/MEALS #60 tab 01/10/23 [Rx] cefUROXime axetiL [Ceftin] 500 mg PO BID 10 Days #20 tab 01/10/23 [Rx] Magnesium Oxide [Mag-Ox] 400 mg PO DAILY@1200 01/12/23 [History] Multivitamins, Thera [Multivitamin (formulary)] 1 tab PO DAILY@1200 01/12/23 [History] Follow up Appointment(s)/Referral(s): Emi Reynoso MD [STAFF PHYSICIAN] - 01/18/23 11:15 am Rosales Boothe DO [Primary Care Provider] - 1-2 days [facility] [NON-STAFF] - Awa Enciso MD [STAFF PHYSICIAN] - 1 Week Jose Lance MD [STAFF PHYSICIAN] - 1 Week Ambulatory/Diagnostic Orders: Complete Blood Count w/diff [LAB.AMB] Time Frame: 3 Days, Location: None Selected Patient Instructions/Handouts: Gallstones (DC), Acute Nausea and Vomiting (DC), Ileus (DC), ERCP (Endoscopic Retrograde Cholangiopancreatography) (DC) Activity/Diet/Wound Care/Special Instructions: Activity Limited until follow-up Follow-up with primary care provider on discharge Follow-up Gen. surgery outpatient in one week Follow-up cardiology Continue taking medications as prescribed Continue current diet and slowly advance as tolerated Continue supplemental oxygen and follow-up outpatient Follow-up labs including CBC, CMP, amylase, lipase Continue using incentive spirometer at least 10 times every hour while awake Okay to resume eliquis this evening per surgery Discharge Disposition: HOME SELF-CARE
== END 2023-01-10 16:53 | disposition home or self-care (01) | DRG 853 ==
LOC: EC 20:27 → 4SSUR 01-02 01:08 → 3SCARD 01-03 13:22
PROVIDERS: ADMIT Hospitalist; ATTEND Hospitalist
PROC: 0FC98ZZ Extirpation of Matter from Common Bile Duct, Via Natural or Artificial Opening Endoscopic (ICD-10-PCS; 2023-01-04 13:30)
PROC: 0FT40ZZ Resection of Gallbladder, Open Approach (ICD-10-PCS; principal; 2023-01-09 09:10)
DX: A41.9 Sepsis, unspecified organism (principal); J18.9 Pneumonia, unspecified organism; K80.65 Calculus of gallbladder and bile duct with chronic cholecystitis with obstruction; E87.1 Hypo-osmolality and hyponatremia; J90 Pleural effusion, not elsewhere classified; K56.7 Ileus, unspecified; J44.0 Chronic obstructive pulmonary disease with (acute) lower respiratory infection; E86.0 Dehydration; Z28.311 Partially vaccinated for COVID-19; E87.6 Hypokalemia; I08.3 Combined rheumatic disorders of mitral, aortic and tricuspid valves; I48.0 Paroxysmal atrial fibrillation; I49.3 Ventricular premature depolarization; K82.8 Other specified diseases of gallbladder; R09.02 Hypoxemia; Y95 Nosocomial condition; Z79.01 Long term (current) use of anticoagulants; Z88.0 Allergy status to penicillin; Z71.3 Dietary counseling and surveillance; Z87.891 Personal history of nicotine dependence; Z79.899 Other long term (current) drug therapy
CPT/HCPCS: 36415; 43262; 43264; 71045; 71046; 71250; 74018; 74177; 74330; 76705; 80053; 81001; 82150; 83690; 83735; 84145; 84443; 84484; 85025; 85610; 85730; 86140; 87040; 88304; 93005; 93306; 94640; 94760; 96374; 99285

== ENCOUNTER 2023-01-12 15:05 | Inpatient (IN) | payer MEDICARE, OTHER ==
--- NOTE | 2023-01-12 15:32 | ED ---
General Adult HPI - General Chief complaint: Arrhythmia/Palpitations Stated complaint: A Fib Time Seen by Provider: 01/12/23 15:07 Source: patient, family, EMS, RN notes reviewed Mode of arrival: EMS Limitations: no limitations - History of Present Illness Initial comments: Patient is a pleasant 82-year-old female presenting to the emergency department with concern for atrial fibrillation. Patient was at a postoperative I'll up with her primary care physician. Patient did have close cystectomy done 2 days ago. Patient denies any pounds or couple occasions with that. Patient does have history of A. fib. Patient is having some fatigue and did check her heart monitor. Patient found that she was in A. fib. Patient denies palpitations. No chest pain. No dyspnea. Patient does admit to having some mild leg edema. - Related Data Home Medications Medication Instructions Recorded Confirmed Cyanocobalamin [Vitamin B-12] 500 mcg PO DAILY 12/09/14 01/02/23 Cholecalciferol [Vitamin D3 (10 10 mcg PO DAILY 01/02/23 01/02/23 Mcg = 400 Iu)] Galantamine HBr [Razadyne ER] 16 mg PO DAILY 01/02/23 01/02/23 Ginkgo Biloba [place] Extract [Ginkgo 40 mg PO DAILY@1200 01/02/23 01/02/23 Biloba] Magnesium 250 mg PO DAILY@1200 01/02/23 01/02/23 Zinc Gluconate [Zinc] 50 mg PO DAILY 01/02/23 01/02/23 Previous Rx's Medication Instructions Recorded Acetaminophen Tab [Tylenol Tab] 650 mg PO Q4H PRN #30 tablet 01/10/23 Apixaban [Eliquis] 2.5 mg PO BID 30 Days #60 tab 01/10/23 Folic Acid 1 mg PO DAILY@1200 #30 tab 01/10/23 Metoprolol Succinate (ER) [Toprol 25 mg PO BID #60 tab 01/10/23 XL] Multivitamins, Thera [Multivitamin 1 each PO DAILY@1200 #30 tab 01/10/23 (formulary)] Thiamine [Vitamin B-1] 100 mg PO BID-W/MEALS #60 tab 01/10/23 cefUROXime axetiL [Ceftin] 500 mg PO BID 10 Days #20 tab 01/10/23 Allergies Allergy/AdvReac Type Severity Reaction Status Date / Time diclofenac sodium Allergy Rash/Hives Verified 01/02/23 07:38 [From Voltaren] Penicillins Allergy Rash/Hives Verified 01/02/23 07:38 Review of Systems ROS Statement: Those systems with pertinent positive or pertinent negative responses have been documented in the HPI. ROS Other: All systems not noted in ROS Statement are negative. Constitutional: Denies: fever Eyes: Denies: eye pain ENT: Denies: ear pain Respiratory: Denies: cough Cardiovascular: Denies: chest pain, palpitations Endocrine: Reports: fatigue Gastrointestinal: Denies: abdominal pain Genitourinary: Denies: dysuria Musculoskeletal: Denies: back pain Past Medical History Past Medical History: Atrial Fibrillation Additional Past Medical History / Comment(s): PVC. History of Any Multi-Drug Resistant Organisms: None Reported Past Surgical History: Cholecystectomy, Hysterectomy, Tonsillectomy Additional Past Surgical History / Comment(s): CArdiac Cath, colonoscopy,, arthoscopy R shoulder, L cataract impalnt Past Anesthesia/Blood Transfusion Reactions: No Reported Reaction Past Psychological History: No Psychological Hx Reported Smoking Status: Former smoker Past Alcohol Use History: None Reported Past Drug Use History: None Reported General Exam Limitations: no limitations General appearance: alert, in no apparent distress Head exam: Present: normocephalic Eye exam: Present: normal appearance Neck exam: Present: normal inspection Respiratory exam: Present: normal lung sounds bilaterally Cardiovascular Exam: Present: tachycardia, irregular rhythm Expanded Peripheral pulses: 2+: Radial (R), Radial (L), Posterior Tibialis (R), Posterior Tibialis (L) GI/Abdominal exam: Present: soft. Absent: tenderness Extremities exam: Present: pedal edema. Absent: calf tenderness Neurological exam: Present: alert Psychiatric exam: Present: normal affect, normal mood Skin exam: Present: normal color Course Vital Signs 01/12/23 01/12/23 01/12/23 15:09 15:10 15:15 Temperature 97.5 F L Pulse Rate 124 H 130 H 124 H Respiratory 12 20 15 Rate Blood Pressure 135/96 135/96 O2 Sat by Pulse 92 L 92 L Oximetry 01/12/23 01/12/23 01/12/23 15:30 15:45 16:00 Temperature Pulse Rate 125 H 117 H 123 H Respiratory 15 16 18 Rate Blood Pressure 125/90 133/86 131/84 O2 Sat by Pulse 98 96 97 Oximetry 01/12/23 01/12/23 16:15 16:30 Temperature Pulse Rate 134 H 124 H Respiratory 13 14 Rate Blood Pressure 126/86 126/97 O2 Sat by Pulse 97 96 Oximetry EKG Findings - EKG Results: EKG: interpreted by ERMD (T-wave inversions in lead III.), normal axis, normal QRS EKG shows: tachycardia, atrial fibrillation Medical Decision Making - Medical Decision Making Was pt. sent in by a medical professional or institution (, PA, NUCLEAR PHYSICIAN, urgent care, hospital, or [facility]...) When possible be specific @ -Patient was sent in by Dr. Boothe office Did you speak to anyone other than the patient for history (EMS, parent, family, police, friend...)? What history was obtained from this source @ -Family is present and helps provide history including recent surgery Did you review nursing and triage notes (agree or disagree)? Why? @ -I reviewed and agree with nursing and triage notes Were old charts reviewed (outside hosp., previous admission, EMS record, old EKG, old radiological studies, urgent care reports/EKG's, [facility] records)? Report findings @ -No old charts were reviewed Differential Diagnosis (chest pain, altered mental status, abdominal pain women, abdominal pain men, vaginal bleeding, weakness, fever, dyspnea, syncope, headache, dizziness, GI bleed, back pain, seizure, CVA, palpatations, mental health, musculoskeletal)? @ -Differential Palpitations Ventricular arrhythmias, atrial arrhythmias, myocardial infarction, anemia, thyrotoxicosis, electrolyte imbalance, hypokalemia, pulmonary embolism, pulmonary disease, drugs, alcohol, anxiety, stress.... This is not meant to be an all-inclusive list. EKG interpreted by me (3pts min.). @ -As above X-rays interpreted by me (1pt min.). @ -Chest x-ray does show bilateral pleural effusions, mild CT interpreted by me (1pt min.). @ -None done U/S interpreted by me (1pt. min.). @ -None done What testing was considered but not performed or refused? (CT, X-rays, U/S, labs )? Why? @ -None What meds were considered but not given or refused? Why? @ -None Did you discuss the management of the patient with other professionals (professionals i.e. DrJammie, PA, NUCLEAR PHYSICIAN, lab, RT, psych nurse, rn social services, wood casket assembler, teacher, jailer/training officer, lead case manager)? Give summary @ -Case was discussed with Dr. Conley, who will admit covering Dr. Boothe Was smoking cessation discussed for >3mins.? @ -No Was critical care preformed (if so, how long)? @ -32 minutes critical care time provided Were there social determinants of health that impacted care today? How? (Homelessness, low income, unemployed, alcoholism, drug addiction, transportation, low edu. Level, literacy, decrease access to med. care, half-way, rehab)? @ -No Was there de-escalation of care discussed even if they declined (Discuss DNR or withdrawal of care, Hospice)? DNR status @ -No What co-morbidities impacted this encounter? (DM, HTN, Smoking, COPD, CAD, Cance r, CVA, ARF, Chemo, Hep., AIDS, mental health diagnosis, sleep apnea, morbid obesity)? @ -None Was patient admitted / discharged? Hospital course, mention meds given and route, prescriptions, significant lab abnormalities, going to OR and other pertinent info. @ -Patient reevaluated. Heart rate in change. Patient will be admitted for diuresis and heart rate control and cardiology consult. Admission orders written. Undiagnosed new problem with uncertain prognosis? @ -No Drug Therapy requiring intensive monitoring for toxicity (Heparin, Nitro, Insulin, Cardizem)? @ -Patient on Cardizem drip that will need monitoring Were any procedures done? @ -No Diagnosis/symptom? @ -A. fib with RVR, CHF Acute, or Chronic, or Acute on Chronic? @ -Acute on chronic, acute Uncomplicated (without systemic symptoms) or Complicated (systemic symptoms)? @ -A. fib is, acute with congestive heart failure Side effects of treatment? @ -No Exacerbation, Progression, or Severe Exacerbation? @ -No Poses a threat to life or bodily function? How? (Chest pain, [place], [place], pneumonia, PE, COPD, DKA, ARF, appy, cholecystitis, CVA, Diverticulitis, Homicidal, Suicidal, threat to staff... and all critical care pts) @ -No - Lab Data Result diagrams: 01/12/23 15:29 01/12/23 15:29 Lab Results 01/12/23 01/12/23 01/12/23 Range/Units 15:29 15:29 15:29 WBC 11.6 H (3.8-10.6) k/uL RBC 3.32 L (3.80-5.40) m/uL Hgb 10.3 L (11.4-16.0) gm/dL Hct 32.7 L (34.0-46.0) % MCV 98.6 (80.0-100.0) fL MCH 31.2 (25.0-35.0) pg MCHC 31.6 (31.0-37.0) g/dL RDW 12.9 (11.5-15.5) % Plt Count 589 H (150-450) k/uL MPV 7.7 Neutrophils % 83 % Lymphocytes % 8 % Monocytes % 6 % Eosinophils % 2 % Basophils % 0 % Neutrophils # 9.6 H (1.3-7.7) k/uL Lymphocytes # 1.0 (1.0-4.8) k/uL Monocytes # 0.7 (0-1.0) k/uL Eosinophils # 0.2 (0-0.7) k/uL Basophils # 0.0 (0-0.2) k/uL Hypochromasia Slight PT 11.7 (10.0-12.5) sec INR 1.1 (<1.2) APTT 23.2 (22.0-30.0) sec Sodium 137 (137-145) mmol/L Potassium 4.5 (3.5-5.1) mmol/L Chloride 102 (98-107) mmol/L Carbon Dioxide 30 (22-30) mmol/L Anion Gap 5 mmol/L BUN 22 H (7-17) mg/dL Creatinine 0.69 (0.52-1.04) mg/dL Est GFR (CKD-EPI)AfAm >90 (>60 ml/min/1.73 sqM) Est GFR (CKD-EPI)NonAf 83 (>60 ml/min/1.73 sqM) Glucose 86 (74-99) mg/dL Calcium 9.1 (8.4-10.2) mg/dL Magnesium 2.2 (1.6-2.3) mg/dL Total Bilirubin 0.5 (0.2-1.3) mg/dL AST 52 H (14-36) U/L ALT 38 H (4-34) U/L Alkaline Phosphatase 197 H (38-126) U/L Troponin I (0.000-0.034) ng/mL NT-Pro-B Natriuret Pep 56361 pg/mL Total Protein 5.7 L (6.3-8.2) g/dL Albumin 3.0 L (3.5-5.0) g/dL TSH 2.300 (0.465-4.680) mIU/L Free T4 2.17 (0.78-2.19) ng/dL Free T3 pg/mL 3.2 (2.8-5.3) pg/ml 01/12/23 Range/Units 15:29 WBC (3.8-10.6) k/uL RBC (3.80-5.40) m/uL Hgb (11.4-16.0) gm/dL Hct (34.0-46.0) % MCV (80.0-100.0) fL MCH (25.0-35.0) pg MCHC (31.0-37.0) g/dL RDW (11.5-15.5) % Plt Count (150-450) k/uL MPV Neutrophils % % Lymphocytes % % Monocytes % % Eosinophils % % Basophils % % Neutrophils # (1.3-7.7) k/uL Lymphocytes # (1.0-4.8) k/uL Monocytes # (0-1.0) k/uL Eosinophils # (0-0.7) k/uL Basophils # (0-0.2) k/uL Hypochromasia PT (10.0-12.5) sec INR (<1.2) APTT (22.0-30.0) sec Sodium (137-145) mmol/L Potassium (3.5-5.1) mmol/L Chloride (98-107) mmol/L Carbon Dioxide (22-30) mmol/L Anion Gap mmol/L BUN (7-17) mg/dL Creatinine (0.52-1.04) mg/dL Est GFR (CKD-EPI)AfAm (>60 ml/min/1.73 sqM) Est GFR (CKD-EPI)NonAf (>60 ml/min/1.73 sqM) Glucose (74-99) mg/dL Calcium (8.4-10.2) mg/dL Magnesium (1.6-2.3) mg/dL Total Bilirubin (0.2-1.3) mg/dL AST (14-36) U/L ALT (4-34) U/L Alkaline Phosphatase (38-126) U/L Troponin I <0.012 (0.000-0.034) ng/mL NT-Pro-B Natriuret Pep pg/mL Total Protein (6.3-8.2) g/dL Albumin (3.5-5.0) g/dL TSH (0.465-4.680) mIU/L Free T4 (0.78-2.19) ng/dL Free T3 pg/mL (2.8-5.3) pg/ml Critical Care Time Critical Care Time: Yes Total Critical Care Time: 32 Disposition Clinical Impression: Atrial fibrillation, CHF (congestive heart failure) Disposition: ADMITTED IP TO THIS HOSP Is patient prescribed a controlled substance at d/c from ED?: No Referrals: Rosales Boothe DO [Primary Care Provider] - 1-2 days Time of Disposition: 16:47
[2023-01-12 15:45] LABS: Basophils % (A) 0 %; Eosinophils # (A) 0.2 k/uL (0-0.7); Eosinophils % (A) 2 %; HCT 32.7 % (34.0-46.0); HGB 10.3 gm/dL (11.4-16.0); Hypochromasia Slight; Lymphocytes % (A) 8 %; MCH 31.2 pg (25.0-35.0); MCHC 31.6 g/dL (31.0-37.0); MCV 98.6 fL (80.0-100.0); Mean Platelet Volume 7.7; Monocytes # (A) 0.7 k/uL (0-1.0); Monocytes % (A) 6 %; Neutrophils # (A) 9.6 k/uL (1.3-7.7); Neutrophils % (A) 83 %; Platelet Count 589 k/uL (150-450); RBC 3.32 m/uL (3.80-5.40); RDW 12.9 % (11.5-15.5); WBC 11.6 k/uL (3.8-10.6)
[2023-01-12] MEDS: DILTIAZEM 125 MG in SODIUM CHLORIDE 0.9% 100 ML IV SCH (15:45)
[2023-01-12 15:57] LABS: ALT 38 U/L (4-34); AST 52 U/L (14-36); African American GFR (CKD) >90 (>60 ml/min/1.73 sqM); Alkaline Phosphatase 197 U/L (38-126); Anion Gap 5 mmol/L; Blood Urea Nitrogen 22 mg/dL (7-17); Calcium 9.1 mg/dL (8.4-10.2); Carbon Dioxide 30 mmol/L (22-30); Chloride 102 mmol/L (98-107); Glucose 86 mg/dL (74-99); INR 1.1 (<1.2); Magnesium 2.2 mg/dL (1.6-2.3); Non-African American GFR(CKD) 83 (>60 ml/min/1.73 sqM); Partial Thromboplastin Time 23.2 sec (22.0-30.0); Potassium 4.5 mmol/L (3.5-5.1); Prothrombin Time 11.7 sec (10.0-12.5); Sodium 137 mmol/L (137-145); Total Bilirubin 0.5 mg/dL (0.2-1.3); Total Protein 5.7 g/dL (6.3-8.2)
--- NOTE | 2023-01-12 15:58 | XR ---
EXAMINATION TYPE: XR chest 1V portable DATE OF EXAM: 01/12/2023 COMPARISON: 01/10/2023 HISTORY: Dysrhythmia TECHNIQUE: Single frontal view of the chest is obtained. FINDINGS: A bilateral infiltrate and pleural effusion. Biapical pleural thickening. Underlying COPD. Atherosclerotic change aorta. Diffuse osteopenia with arthropathy of the shoulders. IMPRESSION: COPD with stable bilateral infiltrate and pleural effusion.
[2023-01-12 16:05] LABS: NT-Pro-B-Type Natriuretic Pept 10600 pg/mL
[2023-01-12 16:13] LABS: T4, Free (Free Thyroxine) 2.17 ng/dL (0.78-2.19)
[2023-01-12] MEDS ORDERED: ASPIRIN 325 MG TAB PO STA (16:49)
[2023-01-12] MEDS: FUROSEMIDE 10 MG/ML 4 ML VIAL IV SCH (18:02)
[2023-01-12] MEDS: NITROGLYCERIN OINT 1 INCH/GM PACKET TOPICAL SCH (18:02)
[2023-01-13] MEDS: NITROGLYCERIN OINT 1 INCH/GM PACKET TOPICAL SCH ×2 (00:28→06:41)
[2023-01-13] MEDS: ACETAMINOPHEN TAB 325 MG TAB PO PRN ×3 (04:20→14:17)
[2023-01-13] MEDS: DILTIAZEM 125 MG in SODIUM CHLORIDE 0.9% 100 ML IV SCH (04:55)
[2023-01-13] MEDS: FUROSEMIDE 10 MG/ML 4 ML VIAL IV SCH (05:47)
[2023-01-13] MEDS: THIAMINE 100 MG TAB PO SCH ×2 (06:41→16:50)
[2023-01-13] MEDS: METOPROLOL SUCCINATE (ER) 25 MG TAB.ER.24H PO SCH ×2 (08:34→20:44)
[2023-01-13] MEDS: GALANTAMINE HBR 16 MG PO SCH (08:34)
[2023-01-13] MEDS: APIXABAN 2.5 MG TABLET PO SCH ×2 (08:34→20:44)
[2023-01-13] MEDS ORDERED: ASPIRIN 325 MG TAB PO SCH (09:00)
--- NOTE | 2023-01-13 09:34 | P.CRDCN ---
History of Present Illness History of present illness: HISTORY OF PRESENT ILLNESS: This is a 82-year-old female with a past medical history significant for COPD with home oxygen use, paroxysmal atrial fibrillation, and valvular heart disease. Patient follows in the office with Dr. Campos. We have been asked to see the patient in consultation for atrial fibrillation and CHF. Patient examined at the bedside. Patient was recently hospitalized and underwent laparoscopic cholecystectomy on 01/09/2023. She was discharged home in stable condition. The patient states she developed shortness of breath and palpitations at home. She presented to the hospital for further evaluation. The patient was found to be in atrial fibrillation with RVR. She was started on IV Cardizem. She has since converted to sinus mechanism and is maintaining sinus mechanism this morning. The patient was also found to be in acute congestive heart failure. She was started on IV Lasix. She reports that she had significant lower extremi ty edema which has improved. She has been up in relating to the bathroom this morning without shortness of breath. She is laying flat in bed and appears comfortable at the time of examination. * EKG reveals A. fib with RVR. * Chest xray COPD with stable bilateral infiltrate and pleural effusion. * Laboratory data: Troponin negative 3. ProBNP 10,600. * Current home cardiac medications include Eliquis 2.5 mg twice a day and metoprolol succinate 25 mg twice a day * Most recent echocardiogram obtained in December 2022 revealed normal LV systolic function, moderate mitral regurgitation, moderate aortic regurgitation, and severe tricuspid regurgitation REVIEW OF SYSTEMS: At the time of my exam: CONSTITUTIONAL: Denies fever or chills. HEENT: Denies blurred vision, vision changes, or eye pain. Denies hemoptysis CARDIOVASCULAR: Denies chest pain. Denies orthopnea. Denies PND. Denies palpitations RESPIRATORY: Denies shortness of breath. GASTROINTESTINAL: Denies abdominal pain. Denies nausea or vomiting. HEMATOLOGIC: Denies bleeding disorders. GENITOURINARY: Denies any blood in urine. SKIN: Denies pruitis. Denies rash. PHYSICAL EXAM: VITAL SIGNS: Reviewed. GENERAL: Well-developed in no acute distress. HEENT: Head is normocephalic. Pupils are equal, round. Sclerae anicteric. Mucous membranes of the mouth are moist. Neck supple. No JVD or thyromegaly LUNGS: Respirations even and unlabored. Lungs essentially clear to auscultation bilaterally. HEART: Regular rate and rhythm. S1 and S2 heard. Systolic murmur noted ABDOMEN: Soft. Nondistended. Nontender. EXTREMITIES: Normal range of motion. No clubbing or cyanosis. Peripheral pulses intact. Minimal lower extremity edema NEUROLOGIC: Awake and alert. Oriented x 3. ASSESSMENT: Palpitations Shortness of breath Paroxysmal atrial fibrillation with RVR, currently maintaining sinus mechanism Acute heart failure with preserved ejection fraction, improved Status post laparoscopic cholecystectomy, 01/09/2023 COPD with chronic hypoxic respiratory failure on home oxygen Valvular heart disease PLAN: No need to repeat echocardiogram as this was performed last month Discontinue IV Cardizem Continue current dose of metoprolol Discontinue IV Lasix Begin oral Lasix 20 mg daily Continue telemetry monitoring Add oral amiodarone Repeat BNP in a.m. Anticipate discharge home tomorrow Further recommendations pending patient's course Nurse practitioner note has been reviewed by physician. Signing provider agrees with the documented findings, assessment, and plan of care. Past Medical History Past Medical History: Atrial Fibrillation, COPD Additional Past Medical History / Comment(s): PVC. History of Any Multi-Drug Resistant Organisms: None Reported Past Surgical History: Cholecystectomy, Hysterectomy, Tonsillectomy Additional Past Surgical History / Comment(s): CArdiac Cath, colonoscopy,, arthoscopy R shoulder, L cataract impalnt Past Anesthesia/Blood Transfusion Reactions: No Reported Reaction Past Psychological History: No Psychological Hx Reported Smoking Status: Former smoker Past Alcohol Use History: None Reported Past Drug Use History: None Reported Medications and Allergies Home Medications Medication Instructions Recorded Confirmed Type Galantamine HBr [Razadyne ER] 16 mg PO DAILY 01/02/23 01/12/23 History Apixaban [Eliquis] 2.5 mg PO BID 30 Days #60 tab 01/10/23 01/12/23 Rx Folic Acid 1 mg PO DAILY@1200 #30 tab 01/10/23 01/12/23 Rx Metoprolol Succinate (ER) [Toprol 25 mg PO BID #60 tab 01/10/23 01/12/23 Rx XL] Thiamine [Vitamin B-1] 100 mg PO BID-W/MEALS #60 tab 01/10/23 01/12/23 Rx cefUROXime axetiL [Ceftin] 500 mg PO BID 10 Days #20 tab 01/10/23 01/12/23 Rx Magnesium Oxide [Mag-Ox] 400 mg PO DAILY@1200 01/12/23 01/12/23 History Multivitamins, Thera [Multivitamin 1 tab PO DAILY@1200 01/12/23 01/12/23 History (formulary)] Allergies Allergy/AdvReac Type Severity Reaction Status Date / Time diclofenac sodium Allergy Rash/Hives Verified 01/12/23 17:17 [From Voltaren] Penicillins Allergy Rash/Hives Verified 01/12/23 17:17 Physical Exam Vitals: Vital Signs Temp Pulse Pulse Resp BP BP Pulse Ox 01/13/23 08:59 97 01/13/23 08:43 19 01/13/23 08:31 97.7 F 79 18 112/69 97 01/13/23 04:00 98.2 F 134 H 18 134/88 95 01/13/23 01:20 97.8 F 77 16 153/84 98 01/12/23 23:47 77 16 100/76 97 01/12/23 22:00 75 17 110/69 93 L 01/12/23 21:00 85 16 115/69 94 L 01/12/23 20:00 75 15 115/71 95 01/12/23 19:00 87 17 126/79 93 L 01/12/23 18:30 80 14 128/105 96 01/12/23 17:30 114 H 13 115/96 96 01/12/23 17:00 114 H 14 132/92 97 01/12/23 16:30 124 H 14 126/97 96 01/12/23 16:15 134 H 13 126/86 97 01/12/23 16:00 123 H 18 131/84 97 01/12/23 15:45 117 H 16 133/86 96 01/12/23 15:30 125 H 15 125/90 98 01/12/23 15:15 124 H 15 135/96 92 L 01/12/23 15:10 97.5 F L 130 H 20 135/96 92 L 01/12/23 15:09 124 H 12 Intake and Output 01/12/23 01/13/23 01/13/23 22:59 06:59 14:59 Intake Total 25.25 0 Output Total 425 275 Balance 25.25 -425 -275 Intake: Intake, IV Titration 25.25 0 Amount Diltiazem 125 mg In 25.25 0 Sodium Chloride 0.9% 100 ml @ 5 MG/HR 5 mls/hr IV .Q24H [facility] Rx#:[id number] Output: Urine 425 275 Other: Voiding Method Toilet Toilet # Voids 2 1 Weight 53.524 kg 49.1 kg Results 01/12/23 15:29 01/12/23 15:29 Cardiac Enzymes 01/12/23 01/12/23 01/12/23 Range/Units 15:29 15:29 18:46 AST 52 H (14-36) U/L Troponin I <0.012 <0.012 (0.000-0.034) ng/mL 01/12/23 Range/Units 21:01 AST (14-36) U/L Troponin I <0.012 (0.000-0.034) ng/mL Coagulation 01/12/23 Range/Units 15:29 PT 11.7 (10.0-12.5) sec APTT 23.2 (22.0-30.0) sec CBC 01/12/23 Range/Units 15:29 WBC 11.6 H (3.8-10.6) k/uL RBC 3.32 L (3.80-5.40) m/uL Hgb 10.3 L (11.4-16.0) gm/dL Hct 32.7 L (34.0-46.0) % Plt Count 589 H (150-450) k/uL Comprehensive Metabolic Panel 01/12/23 Range/Units 15:29 Sodium 137 (137-145) mmol/L Potassium 4.5 (3.5-5.1) mmol/L Chloride 102 (98-107) mmol/L Carbon Dioxide 30 (22-30) mmol/L BUN 22 H (7-17) mg/dL Creatinine 0.69 (0.52-1.04) mg/dL Glucose 86 (74-99) mg/dL Calcium 9.1 (8.4-10.2) mg/dL AST 52 H (14-36) U/L ALT 38 H (4-34) U/L Alkaline Phosphatase 197 H (38-126) U/L Total Protein 5.7 L (6.3-8.2) g/dL Albumin 3.0 L (3.5-5.0) g/dL Current Medications Generic Name Dose Route Start Last Admin Trade Name Lennoxq PRN Reason Stop Dose Admin Acetaminophen 650 mg 01/13/23 04:03 01/13/23 08:40 Acetaminophen Tab 325 Mg Tab PO 650 mg Q6HR PRN Administration Fever and/ or Pain Apixaban 2.5 mg 01/13/23 09:00 01/13/23 08:34 Apixaban 2.5 Mg Tablet PO 2.5 mg BID [facility] Administration Protocol Aspirin 325 mg 01/13/23 09:00 01/13/23 08:34 Aspirin 325 Mg Tab PO Not Given DAILY [facility] Folic Acid 1 mg 01/13/23 12:00 Folic Acid 1 Mg Tab PO DAILY@1200 [facility] Furosemide 40 mg 01/12/23 17:00 01/13/23 05:47 Furosemide 10 Mg/Ml 4 Ml Vial IV 01/13/23 10:00 40 mg Q12H LUIS Administration Furosemide 40 mg 01/14/23 09:00 Furosemide 40 Mg Tab PO DAILY [facility] Magnesium Oxide 400 mg 01/13/23 12:00 Magnesium Oxide 400 Mg Tab PO DAILY@1200 [facility] Metoprolol Succinate 25 mg 01/13/23 09:00 01/13/23 08:34 Metoprolol Succinate (Er) 25 Mg Tab.Er.24h PO 25 mg BID [facility] Administration Multivitamins 1 each 01/13/23 12:00 Multivitamins, Thera 1 Each Tab PO DAILY@1200 [facility] Galantamine Hbr [ 16 mg 01/13/23 09:00 01/13/23 08:34 Razadyne Er] 16 Mg PO Not Given Cap24h.Pel DAILY [facility] Thiamine HCl 100 mg 01/13/23 07:30 01/13/23 06:41 Thiamine 100 Mg Tab PO 100 mg BID-W/MEALS [facility] Administration Intake and Output 01/12/23 01/13/23 01/13/23 22:59 06:59 14:59 Intake Total 25.25 0 Output Total 425 275 Balance 25.25 -425 -275 Intake: Intake, IV Titration 25.25 0 Amount Diltiazem 125 mg In 25.25 0 Sodium Chloride 0.9% 100 ml @ 5 MG/HR 5 mls/hr IV .Q24H [facility] Rx#:[id number] Output: Urine 425 275 Other: Voiding Method Toilet Toilet # Voids 2 1 Weight 53.524 kg 49.1 kg 01/12/23 15:29 01/12/23 15:29
[2023-01-13] MEDS: FOLIC ACID 1 MG TAB PO SCH (11:15)
[2023-01-13] MEDS: AMIODARONE 200 MG TAB PO SCH ×2 (11:15→20:44)
[2023-01-13] MEDS: MULTIVITAMINS, THERA 1 EACH TAB PO SCH (11:15)
[2023-01-13] MEDS: MAGNESIUM OXIDE 400 MG TAB PO SCH (11:15)
[2023-01-13 11:43] LABS: ALT 37 U/L (4-34); AST 44 U/L (14-36); African American GFR (CKD) >90 (>60 ml/min/1.73 sqM); Albumin 3.3 g/dL (3.5-5.0); Alkaline Phosphatase 194 U/L (38-126); Anion Gap 7 mmol/L; Bilirubin, Delta 0.3 mg/dL (0.0-0.2); Bilirubin,Unconjugated 0.3 mg/dL (0.0-1.1); Blood Urea Nitrogen 16 mg/dL (7-17); Calcium 9.2 mg/dL (8.4-10.2); Carbon Dioxide 33 mmol/L (22-30); Chloride 95 mmol/L (98-107); Glucose 127 mg/dL (74-99); Non-African American GFR(CKD) 87 (>60 ml/min/1.73 sqM); Potassium 3.8 mmol/L (3.5-5.1); Sodium 135 mmol/L (137-145); Total Bilirubin 0.6 mg/dL (0.2-1.3)
[2023-01-13 12:17] LABS: Basophils % (A) 0 %; Eosinophils # (A) 0.1 k/uL (0-0.7); Eosinophils % (A) 1 %; HCT 34.2 % (34.0-46.0); HGB 10.9 gm/dL (11.4-16.0); Lymphocytes # (A) 0.7 k/uL (1.0-4.8); Lymphocytes % (A) 5 %; MCH 31.5 pg (25.0-35.0); MCHC 31.8 g/dL (31.0-37.0); MCV 98.8 fL (80.0-100.0); Mean Platelet Volume 9.5; Monocytes # (A) 0.8 k/uL (0-1.0); Monocytes % (A) 6 %; Neutrophils # (A) 10.7 k/uL (1.3-7.7); Neutrophils % (A) 87 %; Platelet Count 591 k/uL (150-450); RBC 3.46 m/uL (3.80-5.40); RDW 13.4 % (11.5-15.5); WBC 12.3 k/uL (3.8-10.6)
[2023-01-13 15:02] VITALS: BMI 19.8
--- NOTE | 2023-01-13 16:42 | P.HPIM ---
History of Present Illness H&P Date: 01/12/23 Chief Complaint: Palpitations 82-year-old female presenting to the emergency department with concern for atrial fibrillation. Patient was at a postoperative I'll up with her primary care physician. Patient did have close cystectomy done 2 days ago. Patient denies any pounds or couple occasions with that. Patient does have history of A. fib. Patient is having some fatigue and did check her heart monitor. Patient found that she was in A. fib. Patient denies palpitations. No chest pain. No dyspnea. Patient does admit to having some mild leg edema. * EKG reveals A. fib with RVR. * Chest xray COPD with stable bilateral infiltrate and pleural effusion. * Laboratory data: Troponin negative 3. ProBNP 10,600. * Most recent echocardiogram obtained in December 2022 revealed normal LV systolic function, moderate mitral regurgitation, moderate aortic regurgitation, and severe tricuspid regurgitation Review of Systems REVIEW OF SYSTEMS: CONSTITUTIONAL: No fever, no malaise, no fatigue. HEENT: No recent visual problems or hearing problems. Denied any sore throat. CARDIOVASCULAR: No chest pain, orthopnea, PND, no palpitations, no syncope. PULMONARY: No shortness of breath, no cough, no hemoptysis. GASTROINTESTINAL: No diarrhea, no nausea, no vomiting, no abdominal pain. NEUROLOGICAL: No headaches, no weakness, no numbness. HEMATOLOGICAL: Denies any bleeding or petechiae. GENITOURINARY: Denies any burning micturition, frequency, or urgency. MUSCULOSKELETAL/RHEUMATOLOGICAL: Denies any joint pain, swelling, or any muscle pain. ENDOCRINE: Denies any polyuria or polydipsia. The rest of the 14-point review of systems is negative. Past Medical History Past Medical History: Atrial Fibrillation Additional Past Medical History / Comment(s): PVC. History of Any Multi-Drug Resistant Organisms: None Reported Past Surgical History: Cholecystectomy, Hysterectomy, Tonsillectomy Additional Past Surgical History / Comment(s): CArdiac Cath, colonoscopy,, arthoscopy R shoulder, L cataract impalnt Past Anesthesia/Blood Transfusion Reactions: No Reported Reaction Past Psychological History: No Psychological Hx Reported Smoking Status: Former smoker Past Alcohol Use History: None Reported Past Drug Use History: None Reported Medications and Allergies Home Medications Medication Instructions Recorded Confirmed Type Galantamine HBr [Razadyne ER] 16 mg PO DAILY 01/02/23 01/12/23 History Apixaban [Eliquis] 2.5 mg PO BID 30 Days #60 tab 01/10/23 01/12/23 Rx Folic Acid 1 mg PO DAILY@1200 #30 tab 01/10/23 01/12/23 Rx Metoprolol Succinate (ER) [Toprol 25 mg PO BID #60 tab 01/10/23 01/12/23 Rx XL] Thiamine [Vitamin B-1] 100 mg PO BID-W/MEALS #60 tab 01/10/23 01/12/23 Rx cefUROXime axetiL [Ceftin] 500 mg PO BID 10 Days #20 tab 01/10/23 01/12/23 Rx Magnesium Oxide [Mag-Ox] 400 mg PO DAILY@1200 01/12/23 01/12/23 History Multivitamins, Thera [Multivitamin 1 tab PO DAILY@1200 01/12/23 01/12/23 History (formulary)] Allergies Allergy/AdvReac Type Severity Reaction Status Date / Time diclofenac sodium Allergy Rash/Hives Verified 01/12/23 17:17 [facility] Penicillins Allergy Rash/Hives Verified 01/12/23 17:17 Physical Exam Vitals: Vital Signs Temp Pulse Resp BP Pulse Ox 01/12/23 16:00 123 H 18 131/84 97 01/12/23 15:45 117 H 16 133/86 96 01/12/23 15:30 125 H 15 125/90 98 01/12/23 15:15 124 H 15 135/96 92 L 01/12/23 15:10 97.5 F L 130 H 20 135/96 92 L 01/12/23 15:09 124 H 12 Intake and Output 01/12/23 01/12/23 01/12/23 06:59 14:59 22:59 Other: Weight 53.524 kg - Constitutional General appearance: Present: average body habitus, cooperative, no acute di stress - EENT Eyes: Present: anicteric sclerae, EOMI, PERRLA, normal appearance ENT: Present: hearing grossly normal, normal oropharynx Ears: bilateral: normal - Neck Neck: Present: normal ROM. Absent: lymphadenopathy, rigidity, thyromegaly Carotids: negative: bruit present Thyroid: bilateral: normal size, negative: enlarged, nodule - Respiratory Respiratory: bilateral: CTA, negative: rales, rhonchi, wheezing - Cardiovascular Rhythm: regular Heart sounds: normal: S1, S2 Abnormal Heart Sounds: Absent: systolic murmur, diastolic murmur - Gastrointestinal General gastrointestinal: Present: normal bowel sounds, soft. Absent: distended, organomegaly, tenderness - Genitourinary Genitourinary Comment(s): deferred - Integumentary Integumentary: Present: normal turgor. Absent: jaundiced, rash, ulcer - Neurologic Neurologic: Present: CNII-XII intact. Absent: focal deficits - Musculoskeletal Musculoskeletal: Present: gait normal, strength equal bilaterally - Psychiatric Psychiatric: Present: A&O x's 3, appropriate affect, intact judgment & insight Results CBC & Chem 7: 01/13/23 10:55 01/13/23 10:55 Labs: Abnormal Lab Results - Last 24 Hours (Table) 01/12/23 01/12/23 Range/Units 15:29 15:29 WBC 11.6 H (3.8-10.6) k/uL RBC 3.32 L (3.80-5.40) m/uL Hgb 10.3 L (11.4-16.0) gm/dL Hct 32.7 L (34.0-46.0) % Plt Count 589 H (150-450) k/uL Neutrophils # 9.6 H (1.3-7.7) k/uL BUN 22 H (7-17) mg/dL AST 52 H (14-36) U/L ALT 38 H (4-34) U/L Alkaline Phosphatase 197 H (38-126) U/L Total Protein 5.7 L (6.3-8.2) g/dL Albumin 3.0 L (3.5-5.0) g/dL Assessment and Plan Assessment: 1. Atrial fibrillation with RVR - Patient is anticoagulated with Ahlquist 2.5 mg twice a day along with metoprolol 25 mg twice a day for rate control - Patient has been placed on IV Cardizem for rate control; can be titrated or weaned as needed - Cardiology to evaluate and make recommendations 2. Acute exacerbation CHF with preserved EF --Echocardiogram obtained in December 2022 revealed normal LV systolic function, moderate mitral regurgitation, moderate aortic regurgitation, and severe tricuspid regurgitation - Patient is in place on Lasix 20 g IV every 12 hours; we will monitor strict GAYATRI's, daily weights, low salt and fluid restricted diet - Cardiology to evaluate and make further recommendations 4. Chronic hypoxic respiratory failure, related to severe COPD; patient uses 2 L O2 per nasal cannula at home; we will continue with O2 per nasal cannula with plans to titrate dopamine as able keeping O2 saturation above 89% 5. Hypertension; metoprolol 25 mg twice a day 6. COPD; not in exacerbation; continue with home therapy 7. Valvular heart disease; echocardiogram completed in December 2022 reveals normal LV systolic function with moderate aortic and mitral valve regurg with severe tricuspid regurgitation; cardiology is consulted and recommendations are pending DVT prophylaxis; SCDs/oral anticoagulation CODE STATUS; full code
--- NOTE | 2023-01-13 16:44 | P.PN ---
Subjective Progress Note Date: 01/13/23 82-year-old female presenting to the emergency department with concern for atrial fibrillation. Patient was at a postoperative I'll up with her primary care physician. Patient did have close cystectomy done 2 days ago. Patient denies any pounds or couple occasions with that. Patient does have history of A. fib. Patient is having some fatigue and did check her heart monitor. Patient found that she was in A. fib. Patient denies palpitations. No chest pain. No dyspnea. Patient does admit to having some mild leg edema. * EKG reveals A. fib with RVR. * Chest xray COPD with stable bilateral infiltrate and pleural effusion. * Laboratory data: Troponin negative 3. ProBNP 10,600. * Most recent echocardiogram obtained in December 2022 revealed normal LV systolic function, moderate mitral regurgitation, moderate aortic regurgitation, and severe tricuspid regurgitation -- Patient has been evaluated by cardiology and is recommended transition to oral Lasix 20 mg daily; plan to add amiodarone and monitor patient closely - IV Cardizem was discontinued * * Objective - Vital Signs Vital signs: Vital Signs Temp 97.7 F 01/13/23 08:31 Pulse 79 01/13/23 08:31 Resp 19 01/13/23 08:43 BP 112/69 01/13/23 08:31 Pulse Ox 97 01/13/23 08:59 FiO2 Intake & Output 01/12/23 01/13/23 01/13/23 18:59 06:59 18:59 Intake Total 25.25 Output Total 425 275 Balance -399.75 -275 Weight 53.524 kg 49.1 kg Intake: Intake, IV Titration 25.25 Amount Diltiazem 125 mg In 25.25 Sodium Chloride 0.9% 100 ml @ 5 MG/HR 5 mls/hr IV .Q24H [facility] Rx#:[id number] Output: Urine 425 275 Other: Voiding Method Toilet Toilet # Voids 2 1 - Exam GENERAL: Well-developed in no acute distress. HEENT: Head is normocephalic. Pupils are equal, round. Sclerae anicteric. Mucous membranes of the mouth are moist. Neck supple. No JVD or thyromegaly LUNGS: Respirations even and unlabored. Lungs essentially clear to auscultation bilaterally. HEART: Regular rate and rhythm. S1 and S2 heard. Systolic murmur noted ABDOMEN: Soft. Nondistended. Nontender. EXTREMITIES: Normal range of motion. No clubbing or cyanosis. Peripheral pulses intact. Minimal lower extremity edema NEUROLOGIC: Awake and alert. Oriented x 3. - Labs CBC & Chem 7: 01/13/23 10:55 01/13/23 10:55 Labs: Abnormal Lab Results - Last 24 Hours (Table) 01/12/23 01/12/23 Range/Units 15:29 15:29 WBC 11.6 H (3.8-10.6) k/uL RBC 3.32 L (3.80-5.40) m/uL Hgb 10.3 L (11.4-16.0) gm/dL Hct 32.7 L (34.0-46.0) % Plt Count 589 H (150-450) k/uL Neutrophils # 9.6 H (1.3-7.7) k/uL BUN 22 H (7-17) mg/dL AST 52 H (14-36) U/L ALT 38 H (4-34) U/L Alkaline Phosphatase 197 H (38-126) U/L Total Protein 5.7 L (6.3-8.2) g/dL Albumin 3.0 L (3.5-5.0) g/dL Assessment and Plan Assessment: 1. Atrial fibrillation with RVR - Patient is anticoagulated with Ahlquist 2.5 mg twice a day along with metoprolol 25 mg twice a day for rate control - Patient has been placed on IV Cardizem for rate control; can be titrated or weaned as needed - Cardiology to evaluate and make recommendations 2. Acute exacerbation CHF with preserved EF --Echocardiogram obtained in December 2022 revealed normal LV systolic function, moderate mitral regurgitation, moderate aortic regurgitation, and severe tricuspid regurgitation - Patient is in place on Lasix 20 g IV every 12 hours; we will monitor strict GAYATRI's, daily weights, low salt and fluid restricted diet - Cardiology to evaluate and make further recommendations 4. Chronic hypoxic respiratory failure, related to severe COPD; patient uses 2 L O2 per nasal cannula at home; we will continue with O2 per nasal cannula with plans to titrate dopamine as able keeping O2 saturation above 89% 5. Hypertension; metoprolol 25 mg twice a day 6. COPD; not in exacerbation; continue with home therapy 7. Valvular heart disease; echocardiogram completed in December 2022 reveals normal LV systolic function with moderate aortic and mitral valve regurg with severe tricuspid regurgitation; cardiology is consulted and recommendations are pending DVT prophylaxis; SCDs/oral anticoagulation CODE STATUS; full code
[2023-01-14] MEDS: THIAMINE 100 MG TAB PO SCH (06:17)
[2023-01-14] MEDS: AMIODARONE 200 MG TAB PO SCH (08:38)
[2023-01-14] MEDS: APIXABAN 2.5 MG TABLET PO SCH (08:38)
[2023-01-14 08:39] LABS: Basophils % (A) 0 %; Eosinophils # (A) 0.1 k/uL (0-0.7); Eosinophils % (A) 1 %; HCT 34.3 % (34.0-46.0); HGB 10.9 gm/dL (11.4-16.0); Hypochromasia Slight; Lymphocytes # (A) 0.8 k/uL (1.0-4.8); Lymphocytes % (A) 7 %; MCH 31.5 pg (25.0-35.0); MCHC 31.8 g/dL (31.0-37.0); Mean Platelet Volume 7.3; Monocytes # (A) 0.6 k/uL (0-1.0); Monocytes % (A) 5 %; Neutrophils # (A) 9.5 k/uL (1.3-7.7); Neutrophils % (A) 85 %; Platelet Count 536 k/uL (150-450); RBC 3.46 m/uL (3.80-5.40); RDW 13.2 % (11.5-15.5); WBC 11.2 k/uL (3.8-10.6)
[2023-01-14] MEDS: GALANTAMINE HBR 16 MG PO SCH (08:39)
[2023-01-14] MEDS: METOPROLOL SUCCINATE (ER) 25 MG TAB.ER.24H PO SCH (08:39)
[2023-01-14 08:55] LABS: African American GFR (CKD) >90 (>60 ml/min/1.73 sqM); Anion Gap 7 mmol/L; Blood Urea Nitrogen 14 mg/dL (7-17); Calcium 9.1 mg/dL (8.4-10.2); Carbon Dioxide 31 mmol/L (22-30); Chloride 99 mmol/L (98-107); Glucose 108 mg/dL (74-99); Non-African American GFR(CKD) 82 (>60 ml/min/1.73 sqM); Potassium 4.2 mmol/L (3.5-5.1); Sodium 137 mmol/L (137-145)
[2023-01-14 09:00] VITALS: TEMP 98.8
[2023-01-14 09:00] LABS: NT-Pro-B-Type Natriuretic Pept 1890 pg/mL
[2023-01-14] MEDS ORDERED: FUROSEMIDE 40 MG TAB PO SCH (09:00)
[2023-01-14] MEDS ORDERED: FUROSEMIDE 20 MG TAB PO SCH (09:00)
[2023-01-14 11:44] VITALS: BP 100/63; PULSE 70; RESP 17
[2023-01-14] MEDS: MAGNESIUM OXIDE 400 MG TAB PO SCH (11:45)
[2023-01-14] MEDS: FOLIC ACID 1 MG TAB PO SCH (11:45)
[2023-01-14] MEDS: MULTIVITAMINS, THERA 1 EACH TAB PO SCH (11:45)
--- NOTE | 2023-01-14 13:36 | P.PN ---
Subjective Progress Note Date: 01/14/23 PROGRESS NOTE The patient is an 82-year-old female with known history of paroxysmal atrial fibrillation, COPD who presented with an episode of atrial fibrillation, she is back in sinus mechanism. She's feeling well this morning. She denies any chest discomfort, dizziness or palpitations. Her left ventricle systolic function is preserved by echocardiography was moderate mitral and aortic regurgitation and severe tricuspid regurgitation. Medications: Amiodarone 400 mg twice a day, Lasix 20 mg daily, metoprolol succinate 25 mg twice a day, Eliquis 2.5 mg twice a day PHYSICAL EXAMINATION: Blood pressure 100/60 heart rate 70 LUNGS: Clear to auscultation HEART: Regular rate and rhythm, S1, S2. No S3. Holosystolic murmur at the apex ABDOMEN: Soft, nontender, no organomegaly EXTREMETIES: No edema LAB: Hemoglobin 10.9, potassium 4.2, BUN 14, creatinine 0.7 IMPRESSION: 1. Paroxysmal atrial fibrillation, back in sinus mechanism 2. History of COPD 3. Mitral regurgitation 4. Status post recent cholecystectomy PLAN: 1. Continue present therapy 2. Amiodarone 400 mg twice a day for one week then 200 mg twice a day 3. Probable discharge home today 4. Follow up with Dr. Campos in one week Objective - Vital Signs Vital signs: Vital Signs Temp 98.8 F 01/14/23 08:36 Pulse 70 01/14/23 11:30 Resp 17 01/14/23 11:30 BP 100/63 01/14/23 11:30 Pulse Ox 97 01/14/23 11:30 FiO2 Intake & Output 01/13/23 01/14/23 01/14/23 18:59 06:59 18:59 Output Total 625 Balance -625 Weight 49.1 kg Output: Urine 625 Other: Voiding Method Toilet Toilet Toilet # Voids 1 2 - Labs CBC & Chem 7: 01/14/23 08:26 01/14/23 08:26 Labs: Abnormal Lab Results - Last 24 Hours (Table) 01/14/23 01/14/23 Range/Units 08:26 08:26 WBC 11.2 H (3.8-10.6) k/uL RBC 3.46 L (3.80-5.40) m/uL Hgb 10.9 L (11.4-16.0) gm/dL Plt Count 536 H (150-450) k/uL Neutrophils # 9.5 H (1.3-7.7) k/uL Lymphocytes # 0.8 L (1.0-4.8) k/uL Carbon Dioxide 31 H (22-30) mmol/L Glucose 108 H (74-99) mg/dL
== END 2023-01-14 14:19 | disposition home or self-care (01) | DRG 308 ==
LOC: EC 15:05 → 3SCARD 16:49
PROVIDERS: ADMIT Internal Medicine; ATTEND Internal Medicine
DX: I48.0 Paroxysmal atrial fibrillation (principal); I50.33 Acute on chronic diastolic (congestive) heart failure; J96.11 Chronic respiratory failure with hypoxia; I08.3 Combined rheumatic disorders of mitral, aortic and tricuspid valves; I25.10 Atherosclerotic heart disease of native coronary artery without angina pectoris; I08.0 Rheumatic disorders of both mitral and aortic valves; J44.9 Chronic obstructive pulmonary disease, unspecified; I11.0 Hypertensive heart disease with heart failure; Z79.01 Long term (current) use of anticoagulants; Z90.710 Acquired absence of both cervix and uterus; Z90.49 Acquired absence of other specified parts of digestive tract; Z99.81 Dependence on supplemental oxygen; Z88.0 Allergy status to penicillin; Z88.8 Allergy status to other drugs, medicaments and biological substances
CPT/HCPCS: 36415; 71045; 80048; 80053; 80076; 83735; 83880; 84439; 84443; 84481; 84484; 85025; 85610; 85730; 94760; 96365; 96366; 96375; 99291

== ENCOUNTER → 2023-05-11 | Outpatient (CLI) | payer MEDICARE, OTHER ==
--- NOTE | 2023-05-11 09:55 | US ---
EXAMINATION TYPE: US abdomen complete DATE OF EXAM: 05/11/2023 COMPARISON: CT, US 01/02/2023 CLINICAL INDICATION: Female, 82 years old with history of , R16.0 HEPATOMEGALY,; Hx appendectomy, cho lecystectomy, liver mass. TECHNIQUE: Multiple sonographic images of the abdomen are obtained. FINDINGS: EXAM MEASUREMENTS: Liver Length: 15.3 cm Gallbladder Wall: Surgically absent CBD: 0.18 cm Spleen: 7.7 cm Right Kidney: 8.9 x 4.0 x 3.5 cm Left Kidney: 9.4 x 3.6 x 3.7 cm AUDIO VISUAL SPECIALIST NOTES: Exam is limited due to gas. Pancreas: Limited visibility. Liver: Complex area seen within the left lobe: 3.6 x 3.1 x 1.8 cm. *Complex area seen within the right lobe: 1.7 x 1.5 x 1.6 cm. -Calcified, hyperechoic area seen within the right lobe: 2.1 x 1.0 x 0.2 cm. Gallbladder: Surgically absent Evidence for sonographic Sage's sign: No CBD: Appears wnl Spleen: wnl Right Kidney: Slightly small in size. Left Kidney: Anechoic area seen lower pole: 1.1 x 1.0 x 0.8 cm. Upper IVC: Appears wnl Abd Aorta: Plaque seen throughout aorta. IMPRESSION: Left renal cyst.
--- NOTE | 2023-05-11 14:18 | FL ---
EXAMINATION TYPE: FL UGI w esophagus w sm bowel DATE OF EXAM: 05/11/2023 1:38 PM CLINICAL INDICATION:Female, 82 years old with history of R13.10 DYSPHAGIA; COMPARISON: 01/04/2023 TECHNIQUE: The procedure was explained and patient history elicited. All patient questions were ans wered prior to start of procedure. A relay repairer radiograph of the abdomen was also reviewed. Multiple flu oroscopic spot images of the esophagus, stomach and duodenum were obtained following ingestion of liq uid barium and EZ-gas crystals. After the completion of the upper gastrointestinal examination, a de tailed small bowel examination was performed. The patient was asked to ingest additional liquid brenda um and incremental frontal abdominal radiographs were then taken until contrast was visualized in the cecum. Fluoroscopic time: 2 minutes 55 seconds Fluoroscopic images: None Radiographs taken: 106 DAP: Not reported [id number] FINDINGS: Upper GI examination: The esophagus appears unremarkable without evidence of focal stricture, ulceration or abnormal outpou pk. No hiatal hernia was visualized. Few scattered tertiary contractions visualized. No evidence of gastroesophageal reflux was seen . The duodenum demonstrates a normal course and contour. Gastri c lumen is distended more than would be for the average patient. There is no evidence of focal gastri c or duodenal ulceration, stricture, or abnormal outpouching. Small bowel mucosal folds are felt to b e within normal limits. Partially calcified lymph nodes are seen throughout the mediastinum. Detailed small bowel examination: Contrast is seen extending from the duodenojejunal junction into the cecum after 2.5 hours, which is slightly longer than expected. Jejunum diverticulum noted just below this third portion of the duoden um. Similar to prior CT. The small bowel otherwise follows normal distribution and contour without an y evidence of extraluminal or intraluminal irregularity. There is no displacement of bowel loops or extraluminal extravasation of contrast material. There is contrast seen extending into the biliary system including the common bile duct, and hepatic duct and throughout the liver. The cystic duct is also visualized. IMPRESSION: 1. Mild esophageal dysmotility. 2. Distended gastric lumen. 3. Barium extending into the biliary system possibly secondary to prior interventional change. No fi lling defects in the common bile duct common or hepatic duct or other biliary ducts. 4. Jejunal diverticulum.
== END | disposition home or self-care (01) ==
LOC: RADUSWWP 09:04
PROVIDERS: ATTEND Family Medicine
DX: N28.1 Cyst of kidney, acquired (principal); K22.4 Dyskinesia of esophagus; R16.0 Hepatomegaly, not elsewhere classified; K57.10 Diverticulosis of small intestine without perforation or abscess without bleeding; K31.89 Other diseases of stomach and duodenum
CPT/HCPCS: 74240; 74248; 76700

== ENCOUNTER → 2023-11-03 | Outpatient (CLI) | payer MEDICARE, OTHER ==
--- NOTE | 2023-11-03 15:55 | MR ---
EXAMINATION TYPE: MR liver wo/w con DATE OF EXAM: 11/03/2023 3:14 PM CLINICAL INDICATION: Female, 83 years old with history of R16.0 HEATOMGALY; PHH, Renal cysts COMPARISON: Solid 05/11/2023, CT 12/25/2022 TECHNIQUE: Multiplanar multi-sequence imaging was performed without contrast. Post contrast imaging was performed. Post IV contrast subtraction images were also submitted for review. IV Contrast: 4.5 cc Gadavist FINDINGS: LOWER CHEST: The heart is mildly enlarged for size.r ABDOMEN Liver: Multiple hepatic high T2 signal low T1 signal lesions with a more complex lesion in the left h epatic lobe measuring 23 x 25 mm. Postcontrast imaging densities No evidence for suspicious enhanceme nt. Gallbladder and Bile ducts: No evidence for ductal dilation, or biliary stricture or evidence of choledocholithiasis. The gallbladder is within normal limits. Pancreas: No ductal dilation. No evidence for solid mass. Spleen: Normal for size. Adrenal glands: Unremarkable. Kidneys: No evidence for obstructive uropathy. Left simple renal cortical cyst measuring 9 mm other s maller left renal cortical cyst present. No suspicious renal masses. Stomach and Bowel: No evidence for bowel wall thickening or evidence for obstruction. Retroperitoneum/Peritoneum: No evidence of pneumoperitoneum or free fluid. Vasculature: No aortic aneurysm. Musculoskeletal: The osseous structures appear intact. Lymph Nodes: No gross evidence for lymphadenopathy. Abdominal wall: Unremarkable. Adnexal cysts bilaterally measuring up to 57 mm in the left and 25 mm on the right. IMPRESSION: 1. Simple left renal cyst no suspicious renal masses. 2. Scattered simple and minimally complex hepatic cysts. No observation that meet HCC criteria 3. Cardiomegaly correlate with serum BNP. [facility], , 11/03/2023 3:52 PM
== END | disposition home or self-care (01) ==
LOC: RADMRIMAIN 14:21
PROVIDERS: ATTEND Family Medicine
DX: R16.0 Hepatomegaly, not elsewhere classified
CPT/HCPCS: 74183